=== PATIENT | female | born 1980 | race Caucasian/White ===

== ENCOUNTER 2023-06-08 21:33 | Emergency (ER) | payer BC, SELFPAY ==
[2023-06-08 21:36] VITALS: BP 134/99; PULSE 97; RESP 20; TEMP 37.3; O2SAT 99; BMI 39.9
--- NOTE | 2023-06-08 21:45 | ED_ITS ---
HPI - Allergic Reaction General Chief complaint: Allergic Reaction Stated complaint: rash Time Seen by Provider: 06/08/23 21:42 Source: patient and family Mode of arrival: walk-in Limitations: no limitations History of Present Illness HPI narrative: patient is a 43-year-old female presents to the emergency department with her for the evaluation of a rash and hives that developed over the body today. patient has taken Cipro, Flagyl, Bentyl and Ultram for the last six days for diverticulitis exacerbation. She has taken all of those medications in the past with no difficulty. She denies any other new soaps, detergents, foods. She has not had any lip swelling, tongue swelling or difficulty breathing. She reports hives over her trunk, abdomen and legs. She did not take any medication prior to arrival for symptoms. She states she is able to tolerate intramuscular and IV steroids she is not able to take oral steroids as it causes exacerbations of her diverticulitis. Related Data Previous Rx's Medication Instructions Recorded famotidine 20 mg tablet (Pepcid) 20 mg PO BID #10 tabs 06/08/23 hydroxyzine HCl 25 mg tablet 25 mg PO Q6H PRN itching #20 tabs 06/08/23 Allergies Allergy/AdvReac Type Severity Reaction Status Date / Time cefazolin [From [facility]] Allergy Intermediate Verified 06/08/23 21:36 Review of Systems ROS Constitutional Denies: fever or chills Ears, nose, mouth, and throat Denies: nasal congestion Cardiovascular Denies: chest pain Respiratory Denies: shortness of breath or cough Gastrointestinal Denies: nausea or vomiting Musculoskeletal Denies: back pain Integumentary/Breast Denies: rash Neurological Denies: headache Hematologic/Lymphatic Denies: easy bruising PFSH PFSH Social History Smoking status: Never smoker Exam Narrative Exam Narrative: Gen.: Awake, alert, in no distress Head: Normocephalic, atraumatic ENT: Moist mucous membranes, no swelling noted of the lips, tongue. Airway widely open and patent. No blistering or peeling of the lips or mucous membranes Respiratory: No respiratory distress, lungs clear bilaterally Cardio: Regular rate and rhythm Extremities: Moves extremities equally Psych: Normal mood and affect Neuro: No focal neuro deficit Skin: Warm, dry, intact; urticaria noted of the back, abdomen, legs. No petechiae or purpura noted. No mucous membrane involvement. No vesicles or crusting. Constitutional Vital Signs, click to edit/add: Last Vital Signs Temp 99.1 F 06/08/23 21:36 Pulse 97 H 06/08/23 21:36 Resp 20 06/08/23 21:36 BP 134/99 H 06/08/23 21:36 Pulse Ox 99 06/08/23 21:36 O2 Del Method Room Air 06/08/23 21:36 Course Vital Signs Vital signs: Vital Signs Temperature 99.1 F 06/08/23 21:36 Pulse Rate 97 H 06/08/23 21:36 Respiratory Rate 20 06/08/23 21:36 Blood Pressure 134/99 H 06/08/23 21:36 Pulse Oximetry 99 06/08/23 21:36 Oxygen Delivery Method Room Air 06/08/23 21:36 Temperature 99.1 F 06/08/23 21:36 Pulse Rate 97 H 06/08/23 21:36 Respiratory Rate 20 06/08/23 21:36 Blood Pressure 134/99 H 06/08/23 21:36 Pulse Oximetry 99 06/08/23 21:36 Oxygen Delivery Method Room Air 06/08/23 21:36 MDM - Allergic Reaction MDM Narrative Medical decision making narrative: patient treated with IV Benadryl, Pepcid, Solu-Medrol in the Emergency Room. Patient is unwilling to take oral steroids,she will be placed on oral Atarax and Pepcid for antihistamine coverage. She is done taking her antibiotics for acute diverticulitis exacerbation so we will not replace these antibiotics with a new prescription. She appears well-hydrated and nontoxic with stable vital signs. Follow-up with PCP and return to the Emergency Room if symptoms change or worsen. Medical Records Attestation: I reviewed the patient's medical records. Discharge Plan Discharge Chief Complaint: Allergic Reaction Clinical Impression: Urticaria, Allergic reaction Patient Disposition: Home, Self-Care Time of Disposition Decision: 21:44 Condition: Good Prescriptions / Home Meds: New famotidine [Pepcid] 20 mg tablet 20 mg PO BID Qty: 10 0RF hydroxyzine HCl 25 mg tablet 25 mg PO Q6H PRN (Reason: itching) Qty: 20 0RF Instructions: Urticaria (ED) Stand Alone Forms: Portal Instructions Referrals: JACEK KEBEDE [Primary Care Provider] - 1 week
[2023-06-08] MEDS: DIPHENHYDRAMINE HCL 50 MG/ML (1ML) VIAL 25 MG IV (21:50)
[2023-06-08] MEDS: FAMOTIDINE/PF 20 MG/2 ML VIAL IV (21:50)
[2023-06-08] MEDS: METHYLPREDNISOLONE SOD SUCC PF 125 MG/2 ML VIAL IVP (21:50)
[2023-06-08 22:33] VITALS: BP 132/98; PULSE 68; RESP 15; O2SAT 98
== END 2023-06-08 22:35 | disposition home or self-care (01) ==
PROVIDERS: Emergency Provider Emergency Medicine; PCP Family Medicine
DX: L50.0 Allergic urticaria (principal)
CPT/HCPCS: 96374; 96375; 99284; J2930

== ENCOUNTER 2023-06-13 10:33 | Emergency (ER) | payer BC, SELFPAY ==
[2023-06-13 10:38] VITALS: BP 133/87; PULSE 74; RESP 20; TEMP 37.3; O2SAT 97; BMI 40.3
--- NOTE | 2023-06-13 10:48 | ED.ABDPAIN1 ---
HPI - Abdominal Pain General Chief Complaint: Abdominal Pain Stated Complaint: LOWER ABDOMINAL PAIN Time Seen by Provider: 06/13/23 10:43 Source: patient Mode of arrival: Wheelchair Limitations: no limitations History of Present Illness HPI narrative: 43-year-old female presents for lower abdominal pain. She's had it since yesterday afternoon. She points across the low abdomen. No dysuria or hematuria or back pain. She's been nauseous but no vomiting constipation or diarrhea. She's had diverticulitis in the past and she had a hysterectomy and left oophorectomy. She still has her right ovary. The pain is severe and continuous. Related Data Previous Rx's Medication Instructions Recorded famotidine 20 mg tablet (Pepcid) 20 mg PO BID #10 tabs 06/08/23 hydroxyzine HCl 25 mg tablet 25 mg PO Q6H PRN itching #20 tabs 06/08/23 ciprofloxacin HCl 500 mg tablet 500 mg PO Q12H #20 tabs 06/13/23 (Cipro) hydrocodone 5 mg-acetaminophen 325 1 tab PO Q6H PRN pain 5 days #20 06/13/23 mg tablet tabs metronidazole 500 mg tablet 500 mg PO Q8H #30 tabs 06/13/23 ondansetron 4 mg disintegrating 4 mg PO Q6H PRN nausea and 06/13/23 tablet vomiting #20 tabs Allergies Allergy/AdvReac Type Severity Reaction Status Date / Time cefazolin [From [facility]] Allergy Intermediate Verified 06/08/23 21:36 prednisone Allergy Intermediate Unknown Verified 06/13/23 10:45 Review of Systems ROS Narrative A ten point review of systems is negative except as noted above. PFSH PFSH Social History Smoking status: Former smoker Exam Narrative Exam Narrative: Nurses note and vital signs reviewed and patient is not hypoxic. General: The patient appears uncomfortable and is tearful Skin: Warm, dry, no pallor noted. There is no rash noted. Head: Normocephalic, atraumatic Eye: Normal conjunctiva, no drainage Ears, Nose, Mouth, and Throat: oral mucosa is moist. Nares patent. Cardiovascular: Regular Rate and Rhythm Respiratory: Patient is in no distress, no accessory muscle use, lungs are clear to auscultation, no wheezing, rales or rhonchi Back: non-tender, no CVA tenderness bilaterally to percussion. GI: tender across her lower abdomen without distention. Musculoskeletal: The patient has no evidence of calf tenderness, no pitting edema, symmetrical pulses noted bilaterally Neurological: A&O, normal speech Psychiatric: Cooperative Constitutional Vital Signs, click to edit/add: Last Vital Signs Temp 99.2 F 06/13/23 10:38 Pulse 80 06/13/23 12:29 Resp 18 06/13/23 12:29 BP 138/68 06/13/23 12:29 Pulse Ox 96 06/13/23 12:29 O2 Del Method Room Air 06/13/23 10:38 Course Vital Signs Vital signs: Vital Signs Temperature 99.2 F 06/13/23 10:38 Pulse Rate 74 06/13/23 10:38 Respiratory Rate 20 06/13/23 10:38 Blood Pressure 133/87 06/13/23 10:38 Pulse Oximetry 97 06/13/23 10:38 Oxygen Delivery Method Room Air 06/13/23 10:38 Temperature 99.2 F 06/13/23 10:38 Pulse Rate 80 06/13/23 12:29 Respiratory Rate 18 06/13/23 12:29 Blood Pressure 138/68 06/13/23 12:29 Pulse Oximetry 96 06/13/23 12:29 Oxygen Delivery Method Room Air 06/13/23 10:38 MDM - Abdominal Pain MDM Narrative Medical decision making narrative: Acute uncomplicated diverticulitis is identified. She was given IV Cipro and Flagyl here and discharged home on Cipro, Flagyl, [place], and Zofran. Treatment diagnosis and follow-up were discussed with the patient. Differential Diagnosis Differential diagnosis: Likely abdominal pain, acute appendicitis, calculus of kidney, constipation, diverticulitis, endometriosis, gastroenteritis and small bowel obstruction Lab Data Attestation: I reviewed the patient's lab results. Labs: Lab Results 06/13/23 Range/Units 10:48 WBC 14.1 H (4.0-11.0) 10^3/uL RBC 4.54 (4.20-5.40) 10^6/uL Hgb 14.3 (12.0-16.0) g/dL Hct 40.0 (36.0-48.0) % MCV 88.1 (81.0-99.0) fL MCH 31.5 (26.7-34.0) pg MCHC 35.8 H (29.9-35.2) g/dL RDW 11.6 (11.0-15.0) % Plt Count 334 (150-450) 10^3/uL MPV 10.3 (9.5-13.5) fL Neut % (Auto) 77.9 H (43.0-75.0) % Lymph % (Auto) 13.4 L (20.5-60.0) % [place] % (Auto) 7.3 (1.7-12.0) % Eos % (Auto) 0.6 L (0.9-7.0) % Baso % (Auto) 0.4 (0.2-2.0) % Neut # (Auto) 11.0 H (1.4-6.5) 10^3/uL Lymph # (Auto) 1.9 (1.2-3.8) 10^3/uL [place] # (Auto) 1.0 H (0.3-0.8) 10^3/uL Eos # (Auto) 0.1 (0.0-0.7) 10^3/uL Baso # (Auto) 0.1 (0.0-0.1) 10^3/uL Abs Immat Gran (auto) 0.06 H (0.00-0.03) 10^3/uL Imm/Tot Granulo (auto) 0.4 (0.0-0.5) % Sodium 135 L (136-145) mmol/L Potassium 3.4 L (3.5-5.1) mmol/L Chloride 100 (98-107) mmol/L Carbon Dioxide 24.4 (21.0-32.0) mmol/L Anion Gap 14.0 BUN 7.0 (7.0-18.0) mg/dL Creatinine 0.74 (0.55-1.02) mg/dL Est GFR ( Amer) >60 (>=60) Est GFR (Non-Af Amer) >60 (>=60) BUN/Creatinine Ratio 9.5 Glucose 101 (74-106) mg/dL Calcium 8.7 (8.5-10.1) mg/dL Total Bilirubin 0.7 (0.2-1.0) mg/dL Direct Bilirubin 0.1 (0.0-0.2) mg/dL AST 8 L (15-37) U/L ALT 35 (14-59) U/L Alkaline Phosphatase 47 (46-116) U/L Total Protein 7.0 (6.4-8.2) g/dL Albumin 3.4 (3.4-5.0) g/dL Globulin 3.6 g/dL Albumin/Globulin Ratio 0.9 Amylase 28 (25-115) U/L Lipase 27.0 (16.0-77.0) U/L Urine Color Lt. yellow (YELLOW) Urine Clarity Clear (CLEAR) Urine pH 8.5 (5.0-9.0) Ur Specific [place] 1.015 (1.005-1.025) Urine Protein Negative (NEG/TRACE) mg/dL Urine Glucose (UA) Negative (NEGATIVE) mg/dL Urine Ketones Negative (NEGATIVE) mg/dL Urine Occult Blood Negative (NEGATIVE) Urine Nitrite Negative (NEGATIVE) Urine Bilirubin Negative (NEGATIVE) Urine Urobilinogen 0.2 (0.2-1.0) EU/dL Ur Leukocyte Esterase Negative (NEGATIVE) Urine RBC None seen (0-2) #/HPF Urine WBC None seen (NONE SEEN) #/HPF Ur Squamous Epith Cells None seen (NONE/RARE) #/LPF Urine Crystals None seen (None Seen) #/HPF Urine Bacteria None seen (NONE SEEN) #/HPF Urine Casts None seen (NONE SEEN) #/LPF Urine Mucus None seen (NONE SEEN) Imaging Data CT scan - abdomen: Radiologist's impression: Procedure: CT abdomen pelvis w con EXAM: CT abdomen pelvis w con HISTORY: low abd pain COMPARISON: None. TECHNIQUE: CT abdomen and pelvis 02/11/2020 Findings: ABDOMEN: There is fatty infiltration of the liver. Small layering stones within the gallbladder. Spleen, pancreas, and adrenal glands are unremarkable. No renal stones or collecting system dilatation. Left renal low-attenuation lesion, too small to characterize. The bilateral ureters are nondilated. Evaluation of the bowel is limited given the absence of oral contrast. There are colonic diverticula. There is wall thickening of the sigmoid colon with adjacent remaining of the fat in fluid consistent with acute diverticulitis. No evidence of abscess or microperforation. No bowel obstruction. The appendix is nondilated. The aorta is normal caliber. No enlarged abdominal lymph nodes or free abdominal fluid. Tiny fat-containing umbilicus hernia. Pelvis: Unremarkable bladder. No enlarged pelvic lymph nodes. No aggressive sclerotic or lytic osseous lesions. Mild degenerative spondylosis. IMPRESSION: 1. Acute sigmoid diverticulitis. 2. Other nonemergent findings, as described above. Electronically authenticated by: JB HERNÁNDEZ Date: 06/13/2023 11:49 Discharge Plan Discharge Chief Complaint: Abdominal Pain Clinical Impression: Acute diverticulitis Patient Disposition: Home, Self-Care Time of Disposition Decision: 12:52 Condition: Good Mode of Transportation: Private Vehicle Prescriptions / Home Meds: New ciprofloxacin HCl [Cipro] 500 mg tablet 500 mg PO Q12H Qty: 20 0RF metronidazole 500 mg tablet 500 mg PO Q8H Qty: 30 0RF hydrocodone-acetaminophen 5-325 mg tablet 1 tab PO Q6H PRN (Reason: pain) 5 Days Qty: 20 0RF ondansetron 4 mg tablet,disintegrating 4 mg PO Q6H PRN (Reason: nausea and vomiting) Qty: 20 0RF No Action famotidine [Pepcid] 20 mg tablet 20 mg PO BID Qty: 10 0RF Hold Instructions: per pt report hydroxyzine HCl 25 mg tablet 25 mg PO Q6H PRN (Reason: itching) Qty: 20 0RF Hold Instructions: per pt report Instructions: Diverticulitis (ED) Additional Instructions: F/U with Dr Kenyon Carrera Stand Alone Forms: Portal Instructions Referrals: JACEK KEBEDE [Primary Care Provider] - 1 week
[2023-06-13] MEDS: MORPHINE SULFATE 4 MG/ML VIAL IV ×2 (11:02→12:06)
[2023-06-13] MEDS: 0.9 % SODIUM CHLORIDE 1,000 ML 1000 ML IV (11:02)
[2023-06-13] MEDS: ONDANSETRON PF 4 MG/2 ML VIAL IV (11:02)
[2023-06-13 11:08] LABS: Basophils Absolute Auto 0.1 10^3/uL (0.0-0.1); Basophils Percent Auto 0.4 % (0.2-2.0); Eosinophils Absolute Auto 0.1 10^3/uL (0.0-0.7); Eosinophils Percent Auto 0.6 % (0.9-7.0); Hemoglobin 14.3 g/dL (12.0-16.0); Immature Granulocytes Abs Auto 0.06 10^3/uL (0.00-0.03); Immature Granulocytes Pct Auto 0.4 % (0.0-0.5); Lymphocytes Absolute Auto 1.9 10^3/uL (1.2-3.8); Lymphocytes Percent Auto 13.4 % (20.5-60.0); Mean Corpuscular HGB Conc 35.8 g/dL (29.9-35.2); Mean Corpuscular Hemoglobin 31.5 pg (26.7-34.0); Mean Corpuscular Volume 88.1 fL (81.0-99.0); Mean Platelet Volume 10.3 fL (9.5-13.5); Monocytes Percent Auto 7.3 % (1.7-12.0); Neutrophils Percent Auto 77.9 % (43.0-75.0); Platelet Count 334 10^3/uL (150-450); Red Blood Count 4.54 10^6/uL (4.20-5.40); Red Cell Distribution Width 11.6 % (11.0-15.0); White Blood Count 14.1 10^3/uL (4.0-11.0)
[2023-06-13 11:09] LABS: Bilirubin Urine NEGATIVE (NEGATIVE); Blood Urine NEGATIVE (NEGATIVE); Clarity Urine CLEAR (CLEAR); Color Urine LT. YELLOW (YELLOW); Glucose Urine UA NEGATIVE (NEGATIVE); Ketones Urine NEGATIVE (NEGATIVE); Leukocyte Esterase Urine NEGATIVE (NEGATIVE); Nitrite Urine NEGATIVE (NEGATIVE); Protein Urine NEGATIVE (NEG/TRACE); Specific Gravity Urine 1.015 (1.005-1.025); Urobilinogen Urine 0.2 EU/dL (0.2-1.0); pH Urine 8.5 (5.0-9.0)
[2023-06-13 11:20] LABS: Bacteria Urine NONE SEEN #/HPF (NONE SEEN); Cast Seen? NONE SEEN #/LPF (NONE SEEN); Crystals Seen? None Seen #/HPF (None Seen); Mucus Urine NONE SEEN (NONE SEEN); RBC Urine NONE SEEN #/HPF (0-2); Squamous Epithelial Cell Urine NONE SEEN #/LPF (NONE/RARE); WBC Urine NONE SEEN #/HPF (NONE SEEN)
--- NOTE | 2023-06-13 11:28 | CT_ITS ---
The [address] [address] Patient Name: CESAR LOPEZ MRN: [id number] date: 1980 Sex: F Assigned Patient Location: ER Current Patient Location: ER Accession/Order Number: [id number] Exam Date: 06/13/2023 11:18 Report Date: 06/13/2023 11:49 At the request of: LILIANA PATEL Procedure: CT abdomen pelvis w con EXAM: CT abdomen pelvis w con HISTORY: low abd pain COMPARISON: None. TECHNIQUE: CT abdomen and pelvis 02/11/2020 Findings: ABDOMEN: There is fatty infiltration of the liver. Small layering stones within the gallbladder. Spleen, pancreas, and adrenal glands are unremarkable. No renal stones or collecting system dilatation. Left renal low-attenuation lesion, too small to characterize. The bilateral ureters are nondilated. Evaluation of the bowel is limited given the absence of oral contrast. There are colonic diverticula. There is wall thickening of the sigmoid colon with adjacent remaining of the fat in fluid consistent with acute diverticulitis. No evidence of abscess or microperforation. No bowel obstruction. The appendix is nondilated. The aorta is normal caliber. No enlarged abdominal lymph nodes or free abdominal fluid. Tiny fat-containing umbilicus hernia. Pelvis: Unremarkable bladder. No enlarged pelvic lymph nodes. No aggressive sclerotic or lytic osseous lesions. Mild degenerative spondylosis. CT/CT abdomen pelvis w con IMPRESSION: 1. Acute sigmoid diverticulitis. 2. Other nonemergent findings, as described above. Electronically authenticated by: JB HERNÁNDEZ Date: 06/13/2023 11:49
[2023-06-13 11:34] VITALS: BP 130/72; PULSE 67; RESP 18; O2SAT 98
[2023-06-13 12:05] LABS: Alanine Aminotransferase 35 U/L (14-59); Albumin Globulin Ratio 0.9; Albumin Level 3.4 g/dL (3.4-5.0); Alkaline Phosphatase 47 U/L (46-116); Amylase 28 U/L (25-115); Aspartate Amino Transferase 8 U/L (15-37); BUN Creatinine Ratio 9.5; Bilirubin Direct 0.1 mg/dL (0.0-0.2); Bilirubin Total 0.7 mg/dL (0.2-1.0); Calcium 8.7 mg/dL (8.5-10.1); Carbon Dioxide 24.4 mmol/L (21.0-32.0); Chloride 100 mmol/L (98-107); Estimated GFR (African America >60 (>=60); Estimated GFR (Non-African Ame >60 (>=60); Globulin 3.6 g/dL; Glucose 101 mg/dL (74-106); Potassium 3.4 mmol/L (3.5-5.1); Sodium 135 mmol/L (136-145)
[2023-06-13] MEDS: METRONIDAZOLE/SODIUM CHLORIDE 500 MG/100 ML PREMIX 100 MG IV (12:06)
[2023-06-13] MEDS: CIPROFLOXACIN IN 5 % DEXTROSE 400 MG/200 ML PIGGYBACK IV (12:14)
[2023-06-13 12:29] VITALS: BP 138/68; PULSE 80; RESP 18; O2SAT 96
[2023-06-13 13:26] VITALS: BP 128/68; PULSE 82; RESP 18; O2SAT 96
== END 2023-06-13 13:28 | disposition home or self-care (01) ==
PROVIDERS: Emergency Provider Emergency Medicine; PCP Family Medicine
DX: K57.32 Diverticulitis of large intestine without perforation or abscess without bleeding (principal); Z90.710 Acquired absence of both cervix and uterus; Z90.721 Acquired absence of ovaries, unilateral; Z79.899 Other long term (current) drug therapy; Z87.891 Personal history of nicotine dependence
CPT/HCPCS: 36415; 74177; 80048; 80076; 81001; 82150; 83690; 85025; 96365; 96375; 96376; 99285; Q9967

== ENCOUNTER 2024-01-16 14:37 | Emergency (ER) | payer BC, SELFPAY ==
[2024-01-16 14:40] VITALS: BP 159/100; PULSE 104; O2SAT 98; BMI 40.0
--- NOTE | 2024-01-16 14:45 | CT_ITS ---
[address] [address] Patient Name: CESAR LOPEZ MRN: [id number] date: 1980 Sex: F Assigned Patient Location: ER Current Patient Location: ER Accession/Order Number: [id number] Exam Date: 01/16/2024 16:11 Report Date: 01/16/2024 16:58 At the request of: DIONISIO CANNON Procedure: CT abdomen pelvis w con EXAM: CT abdomen pelvis w con HISTORY: Abdominal pain COMPARISON: 06/13/2023 TECHNIQUE: Axial CT imaging was performed through the abdomen and pelvis with intravenous contrast. Multiplanar reformats were performed. Dose reduction techniques were achieved by using automated exposure control and/or adjustment of mA and/or kV according to patient size and/or use of iterative reconstruction technique. FINDINGS: Lung bases: Lung bases are clear. No pleural effusion. GI upper: Unremarkable. Liver: Hepatomegaly , measuring 21 cm with steatosis. Normal contour. Gallbladder: Gallbladder sludge/stone. Biliary system: No intra or extrahepatic biliary ductal dilatation. Spleen: Normal size. Pancreas: Unremarkable. Adrenal glands: Normal adrenal glands. Kidneys/ureters: Normal contours. No hydronephrosis. No nephrolithiasis or ureterolithiasis. Vessels: No aneurysm. Lymph Nodes: No lymphadenopathy. Small bowel: No wall thickening or dilatation. Colon: No wall thickening or dilatation. Colonic diverticulosis without definite evidence of acute diverticulitis.. Appendix: No findings of appendicitis. Peritoneal cavity: No free fluid or pneumoperitoneum. Persistent pelvic fat stranding, may represent scarring from prior surgery. Lower : There is a 3.8 cm right ovarian cyst. Hysterectomy. Bones: No acute bony abnormality. Soft tissues: No acute finding. Additional findings: None. CT/CT abdomen pelvis w con IMPRESSION: Hepatomegaly and hepatic steatosis. Gallbladder sludge/stone. A 3.8 cm right ovarian cyst. Electronically authenticated by: TONJA COKER Date: 01/16/2024 16:58
--- OUTSIDE RECORDS SUMMARY | 2024-01-16 15:08 | XMS_ITS | CCD ---
Author Organization [facility] ion [facility] Care Team Providers Care Manager Stone Name Role Phone David Ayala Unavailable Unavailable Weiricha, David Obandoied Unavailable Unavailable Mike Lara Unavailable Unavailable Yandy, Gladys Hawthorne Unavailable Unavailable Weiricha, Daivd Simons Unavailable Unavailable Gladys Kebede Unavailable Unavailable Jamie, David Simons Unavailable Unavailable Gladys Kebede Unavailable Unavailable YANDY, DR READ Primary Care Unavailable NELA, DR ESCOBAR Consulting Unavailable NELA, DR ESCOBAR Attending Unavailable NELA, DR ESCOBAR Admitting Unavailable GEORGIA, DR JARED Tomas Consulting Unavailmelly e YANDY, DR READ Primary Care Unavailable GEORGIA, DR JARED Tomas Attending Unavailabl e GEORGIA, DR JARED Tomas Admitting Unavailabl e Strawser, Janice Consulting Unavailable Gladys Kebede MD Unavailable Gladys Kebede MD Primary Care Provider LAW LINK Attending Unavailab LAW Yuan Attending Unavailab LAW Yuan Referring Unavailab SEJAL León Attending Unavailable SEJAL DONAHUE Referring Unavailable Allergies Allergy Classification Reported Allergen(s) Allergy Type Date of Onset Reaction(s) Facility (1 source) ceFAZolin Drug Allergy 4 [facility] (1 source) Corticosteroids Drug allergy (disorder) [facility] (2 sources) ceFAZolin Drug Allergy 4 Unknown [facility] (2 sources) Fish Oils Drug Allergy 4 Unknown [facility] (2 sources) Ibuprofen Drug Allergy 4 Unknown [facility] (2 sources) Other Propensity to adverse reactions 4 [facility] Medications Current Medications Medication Drug Class(es) Dates Sig (Normalized) Sig (Original) albuterol 0.83 mg/ml inhalation solution (4 sources) beta2-Adrenergic Agonist Start: 09-01-2023 End: 08-31-2024 albuterol (2.5 MG/3ML) 0.083% nebulizer solution Indications: Mild intermittent asthma with exacerbation (CMS/HCC) Take 3 mL (2.5 mg) by nebulization every 6 (six) hours if needed for wheezing 75 mL 1 09/01/2023 08/31/2024 Active Start: 08-22-2023 End: 08-21-2024 take 2 puff(s) by inhalation every four hours for wheezing albuterol HFA (Ventolin HFA) 90 mcg/act inhaler Indications: Mild intermittent asthma with exacerbation (CMS/HCC) Inhale 2 puffs every 4 (four) hours if needed for wheezing 18 g 1 08/22/2023 08/21/2024 Active ascorbic acid 250 mg oral tablet (2 sources) Vitamin C Ascorbic Acid (v itamin C) 250 MG tablet Take 1,500 mg by mouth in the morning. 0 Active cholecalciferol 0.025 mg oral tablet (2 sources) Vitamin D take 1 tablet by mouth in the morning cholecalciferol (Vitamin D-3) 25 MCG (1000 UT) tablet Take 1,000 Units by mouth in the morning. 0 Active ondansetron 4 mg disintegrating oral tablet (2 sources) Serotonin-3 Receptor Antagonist Start: 06-13-20 23 ondansetron ODT (Zofran-ODT) 4 MG disintegrating tablet DISSOLVE 1 TABLET ON THE TONGUE EVERY 6 HOURS NEEDED FOR NAUSEA AND VOMITING 0 06/13/2023 Active polyethylene glycol 3350 50663 mg powder for oral solution (2 sources) Osmotic Laxative polyethylene gl ycol, PEG, 3350 (Glycolax) 17 GM/SCOOP powder Take by mouth 0 Active Problems Active Problems Problem Classification Problem Date Documented Date Episodic/Chronic Anxiety disorders (2 sources) Anxiety; Translations: [Anxiety disorder, unspecified] Onset: 08-22-2023 08-22-2023 Chronic Asthma (2 sources) Mild intermittent asthma; Translations: [Mild intermittent asthma, uncomplicated] Onset: 08-22-2023 08-22-2023 Chronic Diverticulosis and diverticulitis (4 sources) Diverticulitis; Translations: [Diverticulitis of intestine, part unspecified, without perforation or abscess without bleeding] Onset: 08-22-2023 08-22-2023 Chronic E Codes: Struck by; against (1 source) Striking against or struck by other objects, initial encounter; Translations: [STRIKING AGNST/STRUCK OTH OBJ INIT] Onset: 10-25-2021 Episodic Esophageal disorders (2 sources) Laryngopharyngeal reflux; Translations: [Gastro-esophageal reflux disease without esophagitis] Onset: 08-22-2023 08-22-2023 Chronic Headache; including migraine (2 sources) Episodic tension-type headache; Translations: [Episodic tension-type headache, not intractable] Onset: 08-22-2023 08-22-2023 Chronic Joint disorders and dislocations; trauma-related (2 sources) Derangement of medial meniscus due to injury of knee; Translations: [Derangement of unspecified medial meniscus due to old tear or injury, left knee] Onset: 08-22-2023 08-22-2023 Chronic Other connective tissue disease (3 sources) Pain in right hand; Translations: [PAIN IN RIGHT HAND] Onset: 10-23-2021 Episodic Other connective tissue disease (2 sources) Peroneal tendinitis of left lower limb; Translations: [Peroneal tendinitis, left leg] 09-20-2023 Episodic Other connective tissue disease (2 sources) Pain in both feet; Translations: [Pain in right foot] 09-20-2023 Episodic Other lower respiratory disease (2 sources) Chronic cough; Translations: [Chronic cough] Onset: 08-22-2023 08-22-2023 Episodic Other nervous system disorders (4 sources) Common peroneal neuropathy; Translations: [Lesion of sciatic nerve, right lower limb] 09-20-2023 Chronic Other nervous system disorders (2 sources) Neuropathy; Translations: [Polyneuropathy, unspecified] 09-20-2023 Chronic Other nervous system disorders (2 sources) Chronic pain; Translations: [Other chronic pain] Onset: 08-22-2023 08-22-2023 Chronic Other non-traumatic joint disorders (4 sources) Sinus tarsi syndrome; Translations: [Pain in left ankle and joints of left foot] 09-20-2023 Episodic Other non-traumatic joint disorders (2 sources) Stiffness of left ankle; Translations: [Stiffness of left ankle, not elsewhere classified] Onset: 08-22-2023 08-22-2023 Episodic Other upper respiratory disease (2 sources) Chronic laryngitis; Translations: [Chronic laryngitis] Onset: 08-22-2023 08-22-2023 Chronic Other upper respiratory disease (2 sources) Seasonal allergic rhinitis; Translations: [Other seasonal allergic rhinitis] Onset: 08-22-2023 08-22-2023 Chronic Other upper respiratory infections (2 sources) Chronic sinusitis, unspecified; Translations: [Chronic rhinitis] Onset: 08-22-2023 08-22-2023 Chronic Sprains and strains (1 source) Unspecified sprain of right thumb, initial encounter; Translations: [UNSPECIFIED SPRAIN RT THUMB INITIAL] Onset: 10-25-2021 Episodic Unclassified (1 source) Dysphonia / R49.0(ICD-10) Onset: 06-09-2017 Past or Other Problems Problem Classification Problem Date Documented Da te Episodic/Chronic E Codes: Natural/environment (1 source) Bitten or stung by nonvenomous insect and other nonvenomous arthropods, initial encounter; Translations: [BITTEN NONVENOM INSCT OTH ARTH INIT] Onset: 05-31-2021 Episodic Screening and history of mental health and substance abuse codes (1 source) Personal history of nicotine dependence; Translations: [PERSONAL HISTORY OF NICOTINE DEPEND] Onset: 05-31-2021 Episodic Skin and subcutaneous tissue infections (4 sources) Cellulitis of abdominal wall; Translations: [CELLULITIS OF ABDOMINAL WALL] Onset: 2021 Episodic Superficial injury; contusion (1 source) Insect bite (nonvenomous) of abdominal wall, initial encounter; Translations: [INSECT BITE ABDOMINAL WALL INITIAL] Onset: 05-31-2021 Episodic Results Test Name Value Interpretation Reference Range Facil ity XR CHEST 2 VIEWSon 4 XR CHEST 2 VIEWS EXAMINATION: XR CHES T 2 VIEWS HISTORY: SOB, wheezing TECHNIQUE: Frontal and lateral views of the chest. COMPARISON: None available at time of interpretation FINDINGS: Cardiomediastinal silhouette is within normal limits. No pneumothorax, pleural effusion, or consolidation. No acute osseous abnormality. IMPRESSION: No radiographic evidence of acute intrathoracic process. ELECTRONICALLY SIGNED BY: Rob Barcenas, DO Normal Not Available SCREENING MAMMOGRAM W/TANO, BILATERAL*on 02-03-2022 SCREENING MAMMOGRAM W/TANO, BILATERAL* COMPARISON: Baseline examination TECHNIQUE: 2D and 3D Tomosynthesis of the right and left breasts was performed. FINDINGS: Breast composition demonstrates almost entirely fat. No suspicious microcalcifications, asymmetry, architectural distortion, or associated features are present. IMPRESSION: BIRADS 1: Negative mammogram Board Certified Radiologist. Accredited by the ACR and FDA. MAMMOGRAPHY IS VERY IMPORTANT TO YOUR HEALTH. THE CURRENT [employer] [employer] GUIDELINES RECOMMENDS ANNUAL MAMMOGRAPHY BEGINNING AT AGE 39 THIS FACILITY USES A REMINDER SYSTEM TO ENSURE ALL PATIENTS RECEIVE REMINDER NOTIFICATIONS AT THE APPROPRIATE TIME BASED ON THE RECOMMENDATIONS OF THIS EXAM. Report reported and signed by Da Jeff on 02/03/2022 0914 Normal [facility] MRI Ankle w/o Righton 2021 MRI Ankle w/o Right HISTORY: Peroneal tendinitis. Lateral ankle/foot pain. COMPARISON: None available TECHNIQUE: Multiplanar multisequence MRI of the right ankle was performed without contrast. FINDINGS: The Achilles tendon is intact. The plantar fascia is intact and without thickening or nodularity. Tibialis posterior, flexor digitorum longus, and flexor digitorum longus tendons are intact. No space-occupying lesion within the tarsal tunnel. Split tear of peroneus brevis tendon as it courses along the inferior margin of the lateral malleolus for a length of approximately 2.5 cm. Peroneus longus tendon is intact. Extensor tendons are intact. The anterior and posterior tibiofibular ligaments are intact. The anterior and posterior talofibular ligaments and calcaneofibular ligament are intact. Superficial and deep fibers of the deltoid ligament are intact. Spring ligament is intact. Sinus tarsi fat is preserved. No well defined or measurable articular cartilage defect of the tibial plafond, talar dome, or subtalar joint. No ankle joint effusion. No evidence of fracture or stress reaction of the visualized bones. Hyperintense T2 signal is identified along the dorsal aspect of the fifth proximal phalanx but is incompletely evaluated on this examination. IMPRESSION: Split tear of peroneus brevis tendon as it courses along the inferior margin of the lateral malleolus for a length of approximately 2.5 cm. Hyperintense T2 signal is identified along the dorsal aspect of the fifth proximal phalanx and is nonspecific. MRI of the forefoot is recommended to further evaluate. Report reported and signed by Rob Barcenas on 11/17/2021 0734 Normal [facility] XR HAND RT MIN 3Von 10-24-19 22 XR HAND RT MIN 3V XR HAND RT MIN 3V: HISTORY: Trauma to hand. Hit hand in door.. COMPARISON: None available. TECHNIQUE: 3 radiographic view(s) obtained. FINDINGS: BONES/JOINT SPACES: There is no acute fracture or dislocation. The joint spaces are well-maintained. SOFT TISSUES: The soft tissues are unremarkable. IMPRESSION: Unremarkable plain film examination without acute fracture or dislocation. Electronically authenticated by: JANICE LOPES Date: 2021-10-23 17:06 Normal [facility] Encounters Encounter Date Encounter Type Care Provider Facility Start: 10-27-2023 End: 10-27-2023 ambulatory SEJAL DONAHUE Not Available Start: 09-18-2023 End: 09-18-2023 ambulatory SEJAL DONAHUE Not Available Start: 09-18-2023 End: 09-18-2023 Office outpatient visit 25 minutes Sejal Donahue DPM Work Phone: [facility] Comment on above: Common peroneal neur opathy of right lower extremity (Primary Dx); Common peroneal neuropathy of left lower extremity; Neuropathy; Sinus tarsitis of left foot; Sinus tarsitis of right foot; Peroneal tendinitis of left lower extremity; Pain in both feet Start: 09-14-2023 End: 09-15-2023 ambulatory LAW A HACLARKEEN[place]G Not Available Start: 08-22-2023 End: 08-22-2023 ambulatory LAW A HACKEN[place]G Not Available Start: 10-23-2021 End: 10-23-[address] JARED HO Facility:[facility] Start: 2021 End: [address] GLADYS KEBEDE Facility:[facility] Start: 07-19-[address] [facility] Start: 06-21-2017 Ambulatory David Ayala Facility:[facility] Start: 06-09-2017 Ambulatory David Ayala Facility:[facility] Procedures Date Procedure Procedure Detail Performing Clinician Start: 08-22-2023 H/O: hysterectomy History of hystere ctomy Sejal Donahue DPM Work Phone: Start: 02-03-2022 Mammography Sejal Godfrey DPM Work Phone: Plan of Treatment Date Care Activity Detail Author Start: 02-11-2024 Influenza vaccination Influenza Vacc ine (#1) [facility] Comment on above: Postponed from 04/14 (Patient Refused) Start: 09-20-2023 End: 09-20-2024 EMG 2 Extremities EMG 2 Extremities Neurology Routine 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 Expected: 09/20/2023 (Approximate), Expires: 09/20/2024 [facility] Work Phone: Comment on above: Expected: 09/20/2023 (Approximate), Expires: 09/20/2024 Start: 02-03-2023 Screening for malign ant neoplasm of breast Mammogram [facility] Immunizations Immunization Date Immunization Notes Care Provider Ross bolanos 08-29-2016 tetanus toxoid, redu dangelo diphtheria toxoid, and acellular pertussis vaccine, adsorbed Sejal Donahue DPM Work Phone: [facility] Payers Date Payer Category Payer Unknown BCBS BCBS xxxxxx [id number] 2023-Present [phone] [address] [place] [address] [id number] 2023 Unknown [id number] 2023 Unknown [id number] 2017 Unknown [id number] 1979 Unknown [id number] 1979 Unknown [id number] 1979 Unknown [id number] 1979 Unknown [id number] 1979 Unknown [id number] 1979 Unknown [id number] 1979 Unknown [id number] 1959 Unknown [id number] Social History Date Type Detail Facility Start: 08-22-2023 Tobacco smoking status NHIS Never sm oked tobacco [facility] Start: 08-22-2023 Tobacco use and exposure Smoke less tobacco non-user [facility] Start: 09-18-2023 Alcohol intake Ex-drinker (finding) [facility] Start: 08-22-2023 End: 09-14-2023 [facility] Start: 08-22-2023 End: 09-14-2023 Alcohol Use Disorder Identification Test - Consumption [AUDIT-C] [facility] How often to you hav e a drink containing alcohol? Monthly or less [facility] How many standard dr inks containing alcohol do you have on a typical day? 1 or 2 [facility] How often do you hav e 6 or more drinks on 1 occasion? Never [facility] Start: 09-13-2023 Alcohol Comment Caffeine intak e : 2-3 cups per day coffee [facility] Start: 1980 Sex Assigned At Not on file [facility] Start: 10-26-2022 Gender identity Identifies as female gender (finding) [facility] History of Present illness Narrative 09-18-2023 Sejal Donahue DPM - 09/18/2023 4:00 PM Remedios Donahue DPM - 09/18/2023 4:00 PM EST Note Date & Type Note Facility 09-18-2023 History of Presen t illness Narrative Duplicate HPI: Cesar Lopez presents today for evaluation of bilateral ankle cramping pain. Patient states that she has had pain in the ankle for months. She describes the pain as cramping, muscle spasms which has increased with time. Patient relates a positive history of trauma to the area. 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 She has a cramping sensation to the ankles and foot, on the right side it goes up into the knee and thigh. She has tried bracing, rest, icing, TENS and massage for treatment. No other complaints Exam: General Examination: GENERAL APPEARANCE: awake, aware of surroundings, in no acute distress Vascular: DORSALIS PEDIS PULSE: 2/4, bilaterally POSTERIOR TIBIAL PULSE: 2/4, bilaterally TEMPERATURE GRADIENT: warm to cool EDEMA: to the lateral ankle bilateral CAPILLARY FILLING TIME(sec): capillary fill inact bilateral digits less than 3 secs Neurologic: NEUROLOGIC: light touch is intact to the plantar foot Dermatologic: SKIN FINDINGS: scar to the lateral ankle left HYPERKERATOSIS: none NAIL PATHOLOGY: digits 1-5 bilateral are intact SKIN PATHOLOGY: texture, turgor, hair growth, within normal limits Orthopedic: FOOT MORPHOLOGY: neutral JOINT RANGE OF MOTION: Without pain or crepitus to the subtalar joint and first MPJ. Patient does have pain with ankle joint range of motion slightly with dorsiflexion, eversion and inversion DEFORMITIES: none PAIN ELICITED WITH PALPATION OF: Pain with palpation starting along the proximal lateral aspect of the fibular head right with exacerbation of her symptoms with palpation along the common peroneal nerve to the lateral right knee. Patient does have some nerve sensations with palpation along the lateral left knee but symptoms are definitely worse on the right side. Pain with palpation to the Peroneal tendons along the lateral aspect of the ankle and course of the sural nerve. She also has pain with palpation to the dorsal lateral cutaneous nerve along the right foot. Pain to the sinus tarsi bilateral PAIN ELICITED WITH ROM: Eversion of the right foot and ankle. Patient does not have pain with range of motion to the left ankle but does relate stiffness. 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 She is having pain on consistent with neuropathy along the common peroneal nerve to the bilateral lower extremity. We did discuss the etiology, symptoms and treatment options available for this condition. I would like to order an EMG to determine the extent of nerve changes and also for diagnostic purposes. Referral to neurology was placed and patient will be contacted for further scheduling. We did discuss the potential utilization of nerve modulating medication such as gabapentin, Lyrica. Patient is hesitant to start these medications if she has had a multitude of side effects due to her diverticulitis So we will hold off until we have the results of the EMG. Discussed with the patient a corticosteroid injection. R/B/P/A/C with the patient who consents to proceed. The area was prepped with alcohol. Attention was directed to the bilateral subtalar joint where the patient was noted to have pain. Injection was performed with a total of 4ccs: 3ccs of 0.25% Sensorcaine plain was injection into the joint. At this point in time, retrograde pressure applied to the syringe and no fluid return was noted. This syringe was removed and then 1cc of Kenalog 40 was injected into the joint. Patient tolerated the injection well. Patient instructed on home care. Patient can continue with use of the ASO braces immobilization to help with her foot drop symptoms. We will follow up once the EMG has been completed and to discuss further treatment options. 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- Primary Common peroneal neuropathy of left lower extremity Neuropathy Mononeuritis of unspecified site Sinus tarsitis of left foot Sinus tarsitis of right foot Peroneal tendinitis of left lower extremity Pain in both feet documented in this encounter [facility] Summary Purpose Family History No Family History Records FoundNo Family History Records FoundNo Family History Records FoundNo Family History Records Found Advance Directives No Advanced Directives Records FoundNo Advanced Directives Records FoundNo Advanced Directives Records FoundNo Advanced Directives Records Found Reason for Referral Specialty Diagnoses / Procedures Referred By Contayla t Referred To Contact Diagnoses 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 Procedures EMG 2 Extremities Sejal Donahue, DPM [address] [place] [address] Referral ID Status Reason Start Date Expiration Date V isits Requested Visits Authorized [id number] Incomplete 09/20/2023 03/18/2024 1 1 Additional Source Comments INFORMATION SOURCE (unrecogn ized section and content) DATE CREATED AUTHOR 02/06/2018 [facility] DATE CREATED AUTHOR AUTHOR'S ORGANIZ ATION 10/25/2021 [facility] DATE CREATED AUTHOR AUTHOR'S ORGANIZ ATION 02/04/2022 [facility] Specialist DATE CREATED AUTHOR AUTHOR'S ORGANIZ ATION 10/29/2023 [facility] Specialists EPIC Reason for Visit (unrecogniz ed section and content) Reason Comments Ankle Pain Care Teams (unrecognized sec tion and content) Manager Stone Relationship Specialty Start Date End Date Gladys Kebede MD [address] [place] [address] PCP - [facility] 06/14/22 Gladys Kebede MD [address] [place] [address] PCP - General Family Medicine 12/20/22 FOR RECORDS PERTAINING TO PATIENTS WHO ARE OR HAVE BEEN ENROLLED IN A CHEMICAL DEPENDENCY/SUBSTANCEABUSE PROGRAM, SOME INFORMATION MAY BE OMITTED. This clinical summary was aggregated from multiple sources. Caution should be exercised in using it in the provision of clinical care. This summary normalizes information from multiple sources, and as a consequence, information in this document may materially change the coding, format and clinical context of patient data. In addition, data may be omitted in some cases. CLINICAL DECISIONS SHOULD BE BASED ON THE PRIMARY CLINICAL RECORDS. [employer] [facility]. provides no warranty or guarantee of the accuracy or completeness of information in this document.
--- NOTE | 2024-01-16 15:22 | ED_ITS ---
HPI - Abdominal Pain General Chief Complaint: Abdominal Pain Stated Complaint: ABDOMINAL PAIN Time Seen by Provider: 01/16/24 14:38 Source: patient Mode of arrival: Wheelchair History of Present Illness HPI narrative: Patient is a 43-year-old female who presents to the emergency department for evaluation of suprapubic and right-sided abdominal pain that began 12 hours ago. She states that she has felt nauseous, she has not had any fevers, vomiting or diarrhea. She has had no blood in her stool. She has a history of diverticulitis and states this feels the same. She was last treated for diverticulitis last fall. No medications taken prior to arrival today. She has had a previous hysterectomy. Related Data Previous Rx's ?Medication ?Instructions ?Recorded famotidine 20 mg tablet (Pepcid) 20 mg PO BID #10 tabs 06/08/23 hydroxyzine HCl 25 mg tablet 25 mg PO Q6H PRN itching #20 tabs 06/08/23 ciprofloxacin HCl 500 mg tablet 500 mg PO Q12H #20 tabs 06/13/23 (Cipro) hydrocodone 5 mg-acetaminophen 325 1 tab PO Q6H PRN pain 5 days #20 06/13/23 mg tablet tabs metronidazole 500 mg tablet 500 mg PO Q8H #30 tabs 06/13/23 ondansetron 4 mg disintegrating 4 mg PO Q6H PRN nausea and 06/13/23 tablet vomiting #20 tabs hydrocodone 5 mg-acetaminophen 325 1 tab PO Q6H PRN pain 2 days #8 01/16/24 mg tablet tabs hyoscyamine sulfate 0.125 mg 0.125 mg PO Q6H PRN abdominal pain 01/16/24 tablet (Levsin) #12 tabs ondansetron 4 mg disintegrating 4 mg PO Q6H PRN nausea and 01/16/24 tablet vomiting #12 tabs Allergies Allergy/AdvReac Type Severity Reaction Status Date / Time cefazolin [From [facility]] Allergy Intermediate Verified 06/08/23 21:36 prednisone Allergy Intermediate Unknown Verified 06/13/23 10:45 Review of Systems ROS Constitutional Denies: fever or chills Ears, nose, mouth, and throat Denies: throat pain or nasal congestion Cardiovascular Denies: chest pain Respiratory Denies: shortness of breath or cough Gastrointestinal Reports: abdominal pain and nausea; Denies: vomiting or diarrhea Genitourinary Denies: painful urination Musculoskeletal Denies: back pain or neck pain Integumentary/Breast Denies: rash Neurological Denies: headache Hematologic/Lymphatic Denies: easy bruising or easy bleeding PFSH [facility] Social History Smoking status: Former smoker Exam Narrative Exam Narrative: Gen.: Awake, alert, in no distress Head: Normocephalic, atraumatic ENT: Moist mucous membranes Respiratory: No respiratory distress, lungs clear bilaterally Cardio: Regular rate and rhythm Gastrointestinal: Abdomen is soft, Obese, no rigidity or firmness. Diffusely tender to palpation of the right upper quadrant, right lower quadrant and suprapubic abdomen with voluntary guarding. Extremities: Moves extremities equally Psych: Normal mood and affect Neuro: No focal neuro deficit Skin: Warm, dry, intact Constitutional Vital Signs, click to edit/add: Last Vital Signs Pulse 90 01/16/24 17:27 Resp 16 01/16/24 17:27 BP 129/88 01/16/24 17:27 Pulse Ox 98 01/16/24 17:27 O2 Del Method Room Air 01/16/24 14:40 Course Vital Signs Vital signs: Vital Signs Pulse Rate 104 H 01/16/24 14:40 Respiratory Rate 20 01/16/24 14:40 Blood Pressure 159/100 H 01/16/24 14:40 Pulse Oximetry 98 01/16/24 14:40 Oxygen Delivery Method Room Air 01/16/24 14:40 Pulse Rate 90 01/16/24 17:27 Respiratory Rate 16 01/16/24 17:27 Blood Pressure 129/88 01/16/24 17:27 Pulse Oximetry 98 01/16/24 17:27 Oxygen Delivery Method Room Air 01/16/24 14:40 MDM - Abdominal Pain MDM Narrative Medical decision making narrative: Patient treated with pain medication, nausea medication, IV fluids. Lab studies Show mild leukocytosis but bilirubin, LFTs, lipase and urine specimen are within normal limits. CT shows gallbladder sludge and a 3 cm right ovarian cyst, I noted constipation on my evaluation of the CT. Appendix is normal, no evidence of colitis or diverticulitis. Patient with no indication for antibiotics at this time. She is discharged home with short course of analgesics, Levsin, Zofran to follow-up with her PCP. Return to the ER if symptoms change or worsen Medical Records Attestation: I reviewed the patient's medical records. Lab Data Attestation: I reviewed the patient's lab results. Labs: Lab Results 01/16/24 01/16/24 Range/Units 15:18 16:36 WBC 15.7 H (4.0-11.0) 10^3/uL RBC 4.51 (4.20-5.40) 10^6/uL Hgb 13.9 (12.0-16.0) g/dL Hct 41.6 (36.0-48.0) % MCV 92.2 (81.0-99.0) fL MCH 30.8 (26.7-34.0) pg MCHC 33.4 (29.9-35.2) g/dL RDW 11.9 (11.0-15.0) % Plt Count 330 (150-450) 10^3/uL MPV 9.9 (9.5-13.5) fL Neut % (Auto) 80.5 H (43.0-75.0) % Lymph % (Auto) 11.7 L (20.5-60.0) % [place] % (Auto) 6.8 (1.7-12.0) % Eos % (Auto) 0.3 L (0.9-7.0) % Baso % (Auto) 0.4 (0.2-2.0) % Neut # (Auto) 12.6 H (1.4-6.5) 10^3/uL Lymph # (Auto) 1.8 (1.2-3.8) 10^3/uL [place] # (Auto) 1.1 H (0.3-0.8) 10^3/uL Eos # (Auto) 0.1 (0.0-0.7) 10^3/uL Baso # (Auto) 0.1 (0.0-0.1) 10^3/uL Abs Immat Gran (auto) 0.04 H (0.00-0.03) 10^3/uL Imm/Tot Granulo (auto) 0.3 (0.0-0.5) % Sodium 141 (136-145) mmol/L Potassium 3.6 (3.5-5.1) mmol/L Chloride 103 (98-107) mmol/L Carbon Dioxide 22.5 (21.0-32.0) mmol/L Anion Gap 19.1 BUN 9.0 (7.0-18.0) mg/dL Creatinine 0.77 (0.55-1.02) mg/dL Est GFR ( Amer) >60 (>=60) Est GFR (Non-Af Amer) >60 (>=60) BUN/Creatinine Ratio 11.7 Glucose 108 H (74-106) mg/dL Lactate 1.8 (0.4-2.0) mmol/L Calcium 9.0 (8.5-10.1) mg/dL Total Bilirubin 0.8 (0.2-1.0) mg/dL AST 21 (15-37) U/L ALT 38 (14-59) U/L Alkaline Phosphatase 57 (46-116) U/L Total Protein 7.6 (6.4-8.2) g/dL Albumin 3.6 (3.4-5.0) g/dL Globulin 4.0 g/dL Albumin/Globulin Ratio 0.9 Lipase 27.0 (16.0-77.0) U/L Urine Color Yellow (YELLOW) Urine Clarity Clear (CLEAR) Urine pH 6.5 (5.0-9.0) Ur Specific [place] 1.020 (1.005-1.025) Urine Protein Negative (NEG/TRACE) mg/dL Urine Glucose (UA) Negative (NEGATIVE) mg/dL Urine Ketones Negative (NEGATIVE) mg/dL Urine Occult Blood Negative (NEGATIVE) Urine Nitrite Negative (NEGATIVE) Urine Bilirubin Negative (NEGATIVE) Urine Urobilinogen 0.2 (0.2-1.0) EU/dL Ur Leukocyte Esterase Negative (NEGATIVE) Imaging Data CT scan - abdomen: Attestation: I have reviewed the pertinent imaging results. Radiologist's impression: ITS Impressions Abdomen/Pelvis CT 01/16/24 14:45 IMPRESSION: Hepatomegaly and hepatic steatosis. Gallbladder sludge/stone. A 3.8 cm right ovarian cyst. Electronically authenticated by: TONJA COKER Date: 01/16/2024 16:58 Discharge Plan Discharge Stand Alone Forms: Portal Instructions Chief Complaint: Abdominal Pain Clinical Impression: Abdominal pain Patient Disposition: Home, Self-Care Time of Disposition Decision: 17:25 Condition: Good Prescriptions / Home Meds: New hydrocodone-acetaminophen 5-325 mg tablet 1 tab PO Q6H PRN (Reason: pain) 2 Days Qty: 8 0RF Rx Instructions: DX R10.9 hyoscyamine sulfate [Levsin] 0.125 mg tablet 0.125 mg PO Q6H PRN (Reason: abdominal pain) Qty: 12 0RF ondansetron 4 mg tablet,disintegrating 4 mg PO Q6H PRN (Reason: nausea and vomiting) Qty: 12 0RF No Action famotidine [Pepcid] 20 mg tablet 20 mg PO BID Qty: 10 0RF Hold Instructions: per pt report hydroxyzine HCl 25 mg tablet 25 mg PO Q6H PRN (Reason: itching) Qty: 20 0RF Hold Instructions: per pt report ciprofloxacin HCl [Cipro] 500 mg tablet 500 mg PO Q12H Qty: 20 0RF metronidazole 500 mg tablet 500 mg PO Q8H Qty: 30 0RF hydrocodone-acetaminophen 5-325 mg tablet 1 tab PO Q6H PRN (Reason: pain) 5 Days Qty: 20 0RF ondansetron 4 mg tablet,disintegrating 4 mg PO Q6H PRN (Reason: nausea and vomiting) Qty: 20 0RF Print Language: Vietnamese Instructions: Acute Abdominal Pain (ED) Referrals: JACEK KEBEDE [Primary Care Provider] - 1 week
[2024-01-16] MEDS: HYDROMORPHONE HCL 1 MG/ML CARTRIDGE IVP (15:28)
[2024-01-16] MEDS: ONDANSETRON PF 4 MG/2 ML VIAL IV (15:28)
[2024-01-16 15:34] LABS: Basophils Absolute Auto 0.1 10^3/uL (0.0-0.1); Basophils Percent Auto 0.4 % (0.2-2.0); Eosinophils Absolute Auto 0.1 10^3/uL (0.0-0.7); Eosinophils Percent Auto 0.3 % (0.9-7.0); Hematocrit 41.6 % (36.0-48.0); Hemoglobin 13.9 g/dL (12.0-16.0); Immature Granulocytes Abs Auto 0.04 10^3/uL (0.00-0.03); Immature Granulocytes Pct Auto 0.3 % (0.0-0.5); Lymphocytes Absolute Auto 1.8 10^3/uL (1.2-3.8); Lymphocytes Percent Auto 11.7 % (20.5-60.0); Mean Corpuscular HGB Conc 33.4 g/dL (29.9-35.2); Mean Corpuscular Hemoglobin 30.8 pg (26.7-34.0); Mean Corpuscular Volume 92.2 fL (81.0-99.0); Mean Platelet Volume 9.9 fL (9.5-13.5); Monocytes Absolute Auto 1.1 10^3/uL (0.3-0.8); Monocytes Percent Auto 6.8 % (1.7-12.0); Neutrophils Absolute Auto 12.6 10^3/uL (1.4-6.5); Neutrophils Percent Auto 80.5 % (43.0-75.0); Platelet Count 330 10^3/uL (150-450); Red Blood Count 4.51 10^6/uL (4.20-5.40); Red Cell Distribution Width 11.9 % (11.0-15.0); White Blood Count 15.7 10^3/uL (4.0-11.0)
[2024-01-16 16:07] LABS: Alanine Aminotransferase 38 U/L (14-59); Albumin Globulin Ratio 0.9; Albumin Level 3.6 g/dL (3.4-5.0); Alkaline Phosphatase 57 U/L (46-116); Anion Gap 19.1; Aspartate Amino Transferase 21 U/L (15-37); BUN Creatinine Ratio 11.7; Bilirubin Total 0.8 mg/dL (0.2-1.0); Carbon Dioxide 22.5 mmol/L (21.0-32.0); Chloride 103 mmol/L (98-107); Estimated GFR (African America >60 (>=60); Estimated GFR (Non-African Ame >60 (>=60); Glucose 108 mg/dL (74-106); Potassium 3.6 mmol/L (3.5-5.1); Sodium 141 mmol/L (136-145); Total Protein 7.6 g/dL (6.4-8.2)
[2024-01-16 16:15] LABS: Lactate/Lactic Acid 1.8 mmol/L (0.4-2.0)
[2024-01-16] MEDS: 0.9 % SODIUM CHLORIDE 1,000 ML 1000 ML IV (16:37)
[2024-01-16 17:18] LABS: Bilirubin Urine NEGATIVE (NEGATIVE); Blood Urine NEGATIVE (NEGATIVE); Clarity Urine CLEAR (CLEAR); Color Urine YELLOW (YELLOW); Glucose Urine UA NEGATIVE (NEGATIVE); Ketones Urine NEGATIVE (NEGATIVE); Leukocyte Esterase Urine NEGATIVE (NEGATIVE); Nitrite Urine NEGATIVE (NEGATIVE); Protein Urine NEGATIVE (NEG/TRACE); Urine Microscopic Indicated NO; Urobilinogen Urine 0.2 EU/dL (0.2-1.0); pH Urine 6.5 (5.0-9.0)
[2024-01-16 17:27] VITALS: BP 129/88; PULSE 90; O2SAT 98
== END 2024-01-16 17:36 | disposition home or self-care (01) ==
PROVIDERS: Physician Assistant; Emergency Provider Emergency Medicine; PCP Family Medicine
DX: R10.9 Unspecified abdominal pain (principal); Z90.710 Acquired absence of both cervix and uterus; Z87.891 Personal history of nicotine dependence
CPT/HCPCS: 36415; 74177; 80053; 81003; 83605; 83690; 85025; 96374; 96375; 99285; J1170; Q9967

== ENCOUNTER 2024-01-22 15:52 | Observation (INO) | payer BC, SELFPAY ==
--- OUTSIDE RECORDS SUMMARY | 2024-01-22 16:02 | XMS_ITS | CCD ---
Author Organization [facility] ion [facility] Care Team Providers Care Web User Experience Strategist Name Role Phone David Ayala Unavailable Unavailable Weiricha, David Obandoied Unavailable Unavailable Mike Lara Unavailable Unavailable Yandy, Gladys Hawthorne Unavailable Unavailable Weiricha, David Simons Unavailable Unavailable Gladys Kebede Unavailable [...] (1 source) ceFAZolin Drug Allergy 4 [facility] (1 source) Corticosteroids Drug allergy (disorder) [facility] (2 sources) ceFAZolin Drug Allergy 4 Unknown [facility] (2 sources) Fish Oils Drug Allergy 4 Unknown [facility] (2 sources) Ibuprofen Drug Allergy 4 Unknown [facility] (2 sources) Other Propensity to adverse reactions 4 [facility] Medications Current Medications Medication Drug [...] VOMITING 0 06/13/2023 Active polyethylene glycol 3350 [id number] mg powder for oral solution (2 sources) [...] VERY IMPORTANT TO YOUR HEALTH. THE CURRENT [employer] GUIDELINES RECOMMENDS ANNUAL MAMMOGRAPHY BEGINNING AT AGE 40 THIS FACILITY USES A REMINDER SYSTEM TO ENSURE ALL PATIENTS RECEIVE REMINDER NOTIFICATIONS AT THE APPROPRIATE TIME BASED ON THE RECOMMENDATIONS OF THIS EXAM. Report reported and signed by Da Jeff on 02/03/2022 0914 Normal [facility] MRI Ankle w/o Righton 2021 MRI Ankle [...] by Rob Barcenas on 11/17/2021 0734 Normal [facility] Clinical Cytogenetics Director XR HAND RT MIN 3Von 10-24-19 22 [...] by: JANICE LOPES Date: 2021-10-23 17:06 Normal [facility] Encounters Encounter Date Encounter Type Care Provider Facility Start: 10-27-2023 End: 10-27-2023 ambulatory SEJAL DONAHUE Not Available Start: 09-18-2023 End: 09-18-2023 ambulatory SEJAL DONAHUE Not Available Start: 09-18-2023 End: 09-18-2023 Office outpatient visit 25 minutes Sejal Donahue DPM Work Phone: [facility] Comment on above: Common peroneal neur [...] GLADYS KEBEDE Facility:[facility] Start: 07-19-2017 Ambulatory David Fraustohu [facility] Facility:[facility] Start: 06-21-2017 Ambulatory David Ayala Facility:[facility] Start: 06-09-2017 Ambulatory David Ayala Facility:[facility] Procedures Date Procedure Procedure Detail Performing Clinician Start: 08-22-2023 H/O: hysterectomy History of hystere ctomy Sejal Donahue DPM Work Phone: Start: 02-03-2022 Mammography Sejal Godfrey DPM Work Phone: Plan of Treatment Date Care Activity Detail Author Start: 02-11-2024 Influenza vaccination Influenza Vacc ine (#1) [facility] Comment on above: Postponed from 04/14 (Patient Refused) Start: 09-20-2023 End: 09-20-2024 EMG 2 Extremities EMG 2 Extremities Neurology Routine 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 Expected: 09/20/2023 (Approximate), Expires: 09/20/2024 [facility] Work Phone: Comment on above: Expected: 09/20/2023 (Approximate), Expires: 09/20/2024 Start: 02-03-2023 Screening for malign ant neoplasm of breast Mammogram [facility] Immunizations Immunization Date Immunization Notes Care Provider Ross bolanos 08-29-2016 tetanus toxoid, redu dangelo diphtheria toxoid, and acellular pertussis vaccine, adsorbed Sejal Donahue DPM Work Phone: [facility] Payers Date Payer Category Payer Unknown BCBS BCBS xxxxxx [id number] 2023-Present [phone] [address] [place] [address] [id number] 2023 Unknown [id number] 2023 Unknown [id number] 2017 Unknown [id number] 1979 Unknown [id number] 1979 Unknown [id number] 1979 Unknown [id number] 1979 Unknown [id number] 1979 Unknown [id number] 1979 Unknown [id number] 1979 Unknown [id number] 1959 Unknown [id number] Social History Date Type Detail Facility Start: [...] further treatment options. documented in this encounter [facility] Evaluation note Note Date & Type [...] DPM [address] [place] [address] Referral ID Status Reason Start Date Expiration Date V isits Requested Visits Authorized [id number] Incomplete 09/20/2023 03/18/2024 1 1 Additional Source Comments INFORMATION SOURCE (unrecogn ized section and content) DATE CREATED AUTHOR 02/06/2018 [facility] DATE CREATED AUTHOR AUTHOR'S ORGANIZ ATION 10/25/2021 [facility] pital DATE CREATED AUTHOR AUTHOR'S ORGANIZ ATION 02/04/2022 [facility] dical Specialist DATE CREATED AUTHOR AUTHOR'S ORGANIZ ATION 10/29/2023 [facility] dical Specialists EPIC Reason for Visit (unrecogniz ed section and content) Reason Comments Ankle Pain Care Teams (unrecognized sec tion and content) Web User Experience Strategist Relationship Specialty Start Date End Date Gladys Kebede MD [address] [place] [address] PCP - [facility] 06/14/22 Gladys Kebede MD [address] [place] [address] PCP - General Family Medicine 12/20/22 FOR [...] BE BASED ON THE PRIMARY CLINICAL RECORDS. [facility] [facility]. provides no warranty or guarantee of the accuracy or completeness of information in this document.
[2024-01-22 16:03] VITALS: BP 156/100; PULSE 95; TEMP 36.1; BMI 39.9
--- NOTE | 2024-01-22 17:09 | CT_ITS ---
The [address] [address] Patient Name: CESAR LOPEZ MRN: [id number] date: 1980 Sex: F Assigned Patient Location: ER Current Patient Location: ER Accession/Order Number: [id number] Exam Date: 01/22/2024 18:02 Report Date: 01/22/2024 19:43 At the request of: JONI HIGH Procedure: CT abdomen pelvis w con CT ABDOMEN AND PELVIS WITH CONTRAST: INDICATION: Lower abd pain. COMPARISON: 01/16/2024. TECHNIQUE:Multiple thin section transaxial slices were acquired through the abdomen and pelvis with intravenous contrast. Coronal and sagittal reconstructed images were reviewed. Oral contrastWas not administered. FINDINGS: LOWER CHEST: Dependent changes are present in the lung bases. LIVER: The liver is enlarged measuring 21.8 cm in craniocaudad extent. There is severe diffuse hepatic steatosis with focal fatty sparing adjacent to the gallbladder fossa. GALLBLADDER AND BILIARY SYSTEM: No obvious ductal dilation. There is cholelithiasis. SPLEEN: The spleen is unremarkable. PANCREAS: The pancreas is unremarkable. ADRENAL GLANDS: The adrenal glands are unremarkable. KIDNEYS AND URETERS: There is no hydronephrosis of the kidneys.No obstructing urologic calcifications are present. VASCULATURE: Vascularity is unremarkable. PERITONEUM/RETROPERITONEUM: There is mild fluid and edema traversing along the left paracolic gutter. There is no free air. LYMPH NODES: No suspicious lymphadenopathy. GASTROINTESTINAL TRACT: There is no bowel obstruction.There is severe diffuse chronic colonic diverticulosis of the colon. There are acute inflammatory changes involving the rectosigmoid colon and the descending colon. This extends to the level of the splenic flexure. The extent of inflammation within the pelvis has improved since the previous examination. The inflammation of the descending colon is new.Findings are concerning for colitis given more diffuse distribution of inflammation. The appendix is visualized and is not inflamed. BLADDER: The urinary bladder is unremarkable. REPRODUCTIVE SYSTEM: There is a dominant follicle in the right ovary measuring 2.2 cm. BODY WALL: There is a tiny fat-containing umbilical hernia. BONES: Multilevel degenerative disc disease is present in the lumbar spine most severe at the L5-S1 level. CT/CT abdomen pelvis w con IMPRESSION: 1. Acute inflammatory changes are present throughout the descending colon in the rectosigmoid colon in a distribution concerning for colitis. 2. Hepatomegaly and diffuse hepatic steatosis. Electronically authenticated by: DAYRON LOPES Date: 01/22/2024 19:43
--- NOTE | 2024-01-22 17:10 | ED.ABDPAIN1 ---
Documented by User: Dianneinocencia Hutsonon 01/22/24 21:31 HPI - Abdominal Pain General Chief Complaint: Abdominal Pain Stated Complaint: abdominal pain Time Seen by Provider: 01/22/24 17:01 Source: patient Mode of arrival: walk-in Limitations: no limitations History of Present Illness HPI narrative: 43 year old female presents to the ED for LLQ pain, N/V/D. Onset was 01/20/24. Sx became worse today. She saw her pcp today for follow up after an ED visit last week for abd pain. She has hx diverticulitis. Denies fever, chills, urinary sx. Denies chance of . She is accompanied by family. Related Data Previous Rx's ?Medication ?Instructions ?Recorded ciprofloxacin HCl 500 mg tablet 500 mg PO Q12H 10 days #20 tabs 01/22/24 (Cipro) metronidazole 500 mg tablet 500 mg PO TID 10 days #30 tabs 01/22/24 ondansetron HCl 4 mg tablet 4 mg PO Q8H PRN nausea and 01/23/24 vomiting 4 days #10 tabs oxycodone-acetaminophen 5 mg-325 1 tab PO Q6H PRN pain #14 tabs 01/23/24 mg tablet Allergies Allergy/AdvReac Type Severity Reaction Status Date / Time cefazolin [From Anc] Allergy Intermediate Verified 01/22/24 16:08 prednisone Allergy Intermediate Unknown Verified 01/22/24 16:08 Review of Systems ROS Constitutional Denies: fever or chills Ears, nose, mouth, and throat Denies: throat pain or neck pain Cardiovascular Denies: chest pain Respiratory Denies: shortness of breath or cough Gastrointestinal Reports: abdominal pain, nausea, vomiting and diarrhea Genitourinary Denies: painful urination, urinary frequency, urinary urgency or blood in urine Musculoskeletal Denies: back pain or neck pain Integumentary/Breast Denies: rash Neurological Denies: headache PFSH PFSH Medical History (Updated 01/23/24 @ 15:07 by Aster Lerma NP) Diverticulosis ?K57.90 - Diverticulosis of intestine, part unspecified, without perforation or abscess without bleeding (ICD-10) Obesity (BMI 30-39.9) ?E66.9 - Obesity, unspecified (ICD-10) Surgical History (Updated 01/23/24 @ 00:23 by Radha Michel) History of ankle surgery ?Z98.890 - Other specified postprocedural states (ICD-10) H/O: hysterectomy ?Z90.710 - Acquired absence of both cervix and uterus (ICD-10) Family History (Updated 01/22/24 @ 21:31 by Radha Michel) Father Family history of CHF (congestive heart failure) Family history of COPD (chronic obstructive pulmonary disease) Family history of cancer Family history of hypertension Family history of myocardial infarction Family history of stroke Grandfather Family history of diabetes mellitus Grandmother Family history of diabetes mellitus Social History (Updated 01/22/24 @ 21:32 by Radha Michel) Within the past year, how often did you have a drink containing alcohol: never Score interpretation: A score less than 3 is consistent with normal alcohol consumption. 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 Highest level of school completed/degree received: Bachelor's degree Are you now , , , , never or living with a partner: In a typical week, how many times do you talk on the telephone with family, friends, or neighbors: 3 or more times per week How often do you get together with friends or relatives: 3 or more times per week How often do you attend hinduism or nondenominational services: 4 or more times per year Do you belong to any clubs or organizations such as hinduism groups unions, fraternal or athletic groups, or school groups: yes Total score: 4 Score interpretation: A score of greater than or equal to 2 indicates the lowest level of social isolation. Little interest or pleasure in doing things: not at all Feeling down, depressed, or hopeless: not at all Feel stressed/tense/nervous/anxious/difficulty sleeping: not at all Do you think of yourself as: straight/heterosexual Gender Identity: female Exam Constitutional Vital Signs, click to edit/add: Last Vital Signs Temp 98.5 F 01/23/24 09:14 Pulse 83 01/23/24 09:14 Resp 18 01/23/24 09:14 BP 154/82 H 01/23/24 09:14 Pulse Ox 94 L 01/23/24 09:14 O2 Del Method Room Air 01/23/24 09:14 Common normals: no apparent distress and oriented x3 General appearance: cooperative Eye Common normals: conjunctivae normal and no scleral icterus Neck & C-Spine Common normals: supple Chest Chest: symmetrical chest wall rise Respiratory Common normals: normal respiratory effort Effort & inspection: able to speak in complete sentences and symmetric chest movement Cardio Common normals: regular rate and regular rhythm GI Common normals: Normal to inspection, nondistended, normoactive bowel sounds present Palpation: soft and tender Details: LLQ and RLQ Neuro Common normals: oriented x3 and moves all extremities Sensorium/orientation: awake Course Vital Signs Vital signs: Vital Signs Temperature 97 F L 01/22/24 16:03 Pulse Rate 95 H 01/22/24 16:03 Respiratory Rate 18 01/22/24 16:03 Blood Pressure 156/100 H 01/22/24 16:03 Temperature 98.5 F 01/23/24 09:14 Pulse Rate 83 01/23/24 09:14 Respiratory Rate 18 01/23/24 09:14 Blood Pressure 154/82 H 01/23/24 09:14 Pulse Oximetry 94 L 01/23/24 09:14 Oxygen Delivery Method Room Air 01/23/24 09:14 MDM - Abdominal Pain MDM Narrative Medical decision making narrative: WBC count was 12.4. CT scan showed acute inflammatory changes are present throughout the descending colon in the rectosigmoid colon in a distribution concerning for colitis. The patient initially reported she wanted to go home; she later reported she was in too much discomfort to be discharged. She was given medication for her discomfort here in the ED. She was started on IV antibiotics. I spoke with Agnes COTTO who accepted the patient for admission under Dr. Mccarthy. Differential Diagnosis Differential diagnosis: Likely abdominal pain, diverticulitis, gastroenteritis and small bowel obstruction Medical Records Attestation: I reviewed the patient's medical records. Lab Data Attestation: I reviewed the patient's lab results. Labs: Lab Results 01/22/24 01/22/24 Range/Units 17:05 19:40 WBC 12.4 H (4.0-11.0) 10^3/uL RBC 4.39 (4.20-5.40) 10^6/uL Hgb 13.5 (12.0-16.0) g/dL Hct 40.1 (36.0-48.0) % MCV 91.3 (81.0-99.0) fL MCH 30.8 (26.7-34.0) pg MCHC 33.7 (29.9-35.2) g/dL RDW 11.4 (11.0-15.0) % Plt Count 326 (150-450) 10^3/uL MPV 10.1 (9.5-13.5) fL Neut % (Auto) 82.0 H (43.0-75.0) % Lymph % (Auto) 11.2 L (20.5-60.0) % Jerome % (Auto) 5.9 (1.7-12.0) % Eos % (Auto) 0.2 L (0.9-7.0) % Baso % (Auto) 0.3 (0.2-2.0) % Neut # (Auto) 10.1 H (1.4-6.5) 10^3/uL Lymph # (Auto) 1.4 (1.2-3.8) 10^3/uL Jerome # (Auto) 0.7 (0.3-0.8) 10^3/uL Eos # (Auto) 0.0 (0.0-0.7) 10^3/uL Baso # (Auto) 0.0 (0.0-0.1) 10^3/uL Abs Immat Gran (auto) 0.05 H (0.00-0.03) 10^3/uL Imm/Tot Granulo (auto) 0.4 (0.0-0.5) % Sodium 139 (136-145) mmol/L Potassium 3.7 (3.5-5.1) mmol/L Chloride 101 (98-107) mmol/L Carbon Dioxide 25.3 (21.0-32.0) mmol/L Anion Gap 16.4 BUN 10.0 (7.0-18.0) mg/dL Creatinine 0.83 (0.55-1.02) mg/dL Est GFR ( Amer) >60 (>=60) Est GFR (Non-Af Amer) >60 (>=60) BUN/Creatinine Ratio 12.0 Glucose 96 (74-106) mg/dL Calcium 9.3 (8.5-10.1) mg/dL Total Bilirubin 0.6 (0.2-1.0) mg/dL AST 18 (15-37) U/L ALT 33 (14-59) U/L Alkaline Phosphatase 67 (46-116) U/L Total Protein 7.8 (6.4-8.2) g/dL Albumin 3.4 (3.4-5.0) g/dL Globulin 4.4 g/dL Albumin/Globulin Ratio 0.8 Lipase 21.0 (16.0-77.0) U/L Serum HCG, Qual Negative (NEGATIVE) Urine Color Yellow (YELLOW) Urine Clarity Clear (CLEAR) Urine pH 6.0 (5.0-9.0) Ur Specific [place] 1.020 (1.005-1.025) Urine Protein Negative (NEG/TRACE) mg/dL Urine Glucose (UA) Negative (NEGATIVE) mg/dL Urine Ketones 40 A (NEGATIVE) mg/dL Urine Occult Blood Negative (NEGATIVE) Urine Nitrite Negative (NEGATIVE) Urine Bilirubin Small A (NEGATIVE) Urine Urobilinogen 0.2 (0.2-1.0) EU/dL Ur Leukocyte Esterase Negative (NEGATIVE) Imaging Data CT scan - abdomen: Attestation: I have reviewed the pertinent imaging results. Radiologist's impression: ITS Impressions Abdomen/Pelvis CT 01/22/24 17:09 IMPRESSION: 1. Acute inflammatory changes are present throughout the descending colon in the rectosigmoid colon in a distribution concerning for colitis. 2. Hepatomegaly and diffuse hepatic steatosis. Electronically authenticated by: DAYRON LOPES Date: 01/22/2024 19:43 Discharge Plan Discharge Chief Complaint: Abdominal Pain Clinical Impression: Colitis, Abdominal pain Patient Disposition: Admitted as Observation Time of Disposition Decision: 20:40 Condition: Good Discharge Date/Time: 01/22/24 21:02 Documented by User: Oren Bradley MD 01/23/24 19:36 HPI - Abdominal Pain General Chief Complaint: Abdominal Pain Stated Complaint: abdominal pain Time Seen by Provider: 01/22/24 17:01 Related Data Previous Rx's ?Medication ?Instructions ?Recorded ciprofloxacin HCl 500 mg tablet 500 mg PO Q12H 10 days #20 tabs 01/22/24 (Cipro) metronidazole 500 mg tablet 500 mg PO TID 10 days #30 tabs 01/22/24 ondansetron HCl 4 mg tablet 4 mg PO Q8H PRN nausea and 01/23/24 vomiting 4 days #10 tabs oxycodone-acetaminophen 5 mg-325 1 tab PO Q6H PRN pain #14 tabs 01/23/24 mg tablet Allergies Allergy/AdvReac Type Severity Reaction Status Date / Time cefazolin [From [facility]] Allergy Intermediate Verified 01/22/24 16:08 prednisone Allergy Intermediate Unknown Verified 01/22/24 16:08 PFS PFS Medical History (Updated 01/23/24 @ 15:07 by Aster Lerma NP) Diverticulosis ?K57.90 - Diverticulosis of intestine, part unspecified, without perforation or abscess without bleeding (ICD-10) Obesity (BMI 30-39.9) ?E66.9 - Obesity, unspecified (ICD-10) Surgical History (Updated 01/23/24 @ 00:23 by Radha Michel) History of ankle surgery ?Z98.890 - Other specified postprocedural states (ICD-10) H/O: hysterectomy ?Z90.710 - Acquired absence of both cervix and uterus (ICD-10) Family History (Updated 01/22/24 @ 21:31 by Radha Michel) Father Family history of CHF (congestive heart failure) Family history of COPD (chronic obstructive pulmonary disease) Family history of cancer Family history of hypertension Family history of myocardial infarction Family history of stroke Grandfather Family history of diabetes mellitus Grandmother Family history of diabetes mellitus Social History (Updated 01/22/24 @ 21:32 by Radha Michel) Within the past year, how often did you have a drink containing alcohol: never Score interpretation: A score less than 3 is consistent with normal alcohol consumption. Smoking status: Former smoker Non-prescribed substance use: denies use Previous occupational history: owns own business Highest level of school completed/degree received: Bachelor's degree Are you now , , , , never or living with a partner: In a typical week, how many times do you talk on the telephone with family, friends, or neighbors: 3 or more times per week How often do you get together with friends or relatives: 3 or more times per week How often do you attend hinduism or nondenominational services: 4 or more times per year Do you belong to any clubs or organizations such as hinduism groups unions, fraternal or athletic groups, or school groups: yes Total score: 4 Score interpretation: A score of greater than or equal to 2 indicates the lowest level of social isolation. Little interest or pleasure in doing things: not at all Feeling down, depressed, or hopeless: not at all Feel stressed/tense/nervous/anxious/difficulty sleeping: not at all Do you think of yourself as: straight/heterosexual Gender Identity: female Exam Constitutional Vital Signs, click to edit/add: Last Vital Signs Temp 98.5 F 01/23/24 09:14 Pulse 83 01/23/24 09:14 Resp 18 01/23/24 09:14 BP 154/82 H 01/23/24 09:14 Pulse Ox 94 L 01/23/24 09:14 O2 Del Method Room Air 01/23/24 09:14 Course Vital Signs Vital signs: Vital Signs Temperature 97 F L 01/22/24 16:03 Pulse Rate 95 H 01/22/24 16:03 Respiratory Rate 18 01/22/24 16:03 Blood Pressure 156/100 H 01/22/24 16:03 Temperature 98.5 F 01/23/24 09:14 Pulse Rate 83 01/23/24 09:14 Respiratory Rate 18 01/23/24 09:14 Blood Pressure 154/82 H 01/23/24 09:14 Pulse Oximetry 94 L 01/23/24 09:14 Oxygen Delivery Method Room Air 01/23/24 09:14 MDM - Abdominal Pain MDM Narrative Medical decision making narrative: WBC count was 12.4. CT scan showed acute inflammatory changes are present throughout the descending colon in the rectosigmoid colon in a distribution concerning for colitis. The patient initially reported she wanted to go home; she later reported she was in too much discomfort to be discharged. She was given medication for her discomfort here in the ED. She was started on IV antibiotics. I spoke with Agnes COTTO who accepted the patient for admission under Dr. Mccarthy. I, Dr Bradley, have reviewed the above progress note and course of action in the ER; agree with the above. I have gone over history and physical, and discussed disposition and treatment plan with the patient. Lab Data Labs: Lab Results 01/22/24 01/22/24 Range/Units 17:05 19:40 WBC 12.4 H (4.0-11.0) 10^3/uL RBC 4.39 (4.20-5.40) 10^6/uL Hgb 13.5 (12.0-16.0) g/dL Hct 40.1 (36.0-48.0) % MCV 91.3 (81.0-99.0) fL MCH 30.8 (26.7-34.0) pg MCHC 33.7 (29.9-35.2) g/dL RDW 11.4 (11.0-15.0) % Plt Count 326 (150-450) 10^3/uL MPV 10.1 (9.5-13.5) fL Neut % (Auto) 82.0 H (43.0-75.0) % Lymph % (Auto) 11.2 L (20.5-60.0) % Jerome % (Auto) 5.9 (1.7-12.0) % Eos % (Auto) 0.2 L (0.9-7.0) % Baso % (Auto) 0.3 (0.2-2.0) % Neut # (Auto) 10.1 H (1.4-6.5) 10^3/uL Lymph # (Auto) 1.4 (1.2-3.8) 10^3/uL Jerome # (Auto) 0.7 (0.3-0.8) 10^3/uL Eos # (Auto) 0.0 (0.0-0.7) 10^3/uL Baso # (Auto) 0.0 (0.0-0.1) 10^3/uL Abs Immat Gran (auto) 0.05 H (0.00-0.03) 10^3/uL Imm/Tot Granulo (auto) 0.4 (0.0-0.5) % Sodium 139 (136-145) mmol/L Potassium 3.7 (3.5-5.1) mmol/L Chloride 101 (98-107) mmol/L Carbon Dioxide 25.3 (21.0-32.0) mmol/L Anion Gap 16.4 BUN 10.0 (7.0-18.0) mg/dL Creatinine 0.83 (0.55-1.02) mg/dL Est GFR ( Amer) >60 (>=60) Est GFR (Non-Af Amer) >60 (>=60) BUN/Creatinine Ratio 12.0 Glucose 96 (74-106) mg/dL Calcium 9.3 (8.5-10.1) mg/dL Total Bilirubin 0.6 (0.2-1.0) mg/dL AST 18 (15-37) U/L ALT 33 (14-59) U/L Alkaline Phosphatase 67 (46-116) U/L Total Protein 7.8 (6.4-8.2) g/dL Albumin 3.4 (3.4-5.0) g/dL Globulin 4.4 g/dL Albumin/Globulin Ratio 0.8 Lipase 21.0 (16.0-77.0) U/L Serum HCG, Qual Negative (NEGATIVE) Urine Color Yellow (YELLOW) Urine Clarity Clear (CLEAR) Urine pH 6.0 (5.0-9.0) Ur Specific [place] 1.020 (1.005-1.025) Urine Protein Negative (NEG/TRACE) mg/dL Urine Glucose (UA) Negative (NEGATIVE) mg/dL Urine Ketones 40 A (NEGATIVE) mg/dL Urine Occult Blood Negative (NEGATIVE) Urine Nitrite Negative (NEGATIVE) Urine Bilirubin Small A (NEGATIVE) Urine Urobilinogen 0.2 (0.2-1.0) EU/dL Ur Leukocyte Esterase Negative (NEGATIVE) Imaging Data CT scan - abdomen: Radiologist's impression: ITS Impressions Abdomen/Pelvis CT 01/22/24 17:09
[2024-01-22] MEDS: HYDROMORPHONE HCL 0.5 MG/0.5 ML SYRINGE IV ×2 (17:19→19:48)
[2024-01-22] MEDS: 0.9 % SODIUM CHLORIDE 1,000 ML 999 ML IV (17:19)
[2024-01-22] MEDS: ONDANSETRON PF 4 MG/2 ML VIAL IV (17:19)
[2024-01-22 17:39] LABS: Basophils Percent Auto 0.3 % (0.2-2.0); Eosinophils Percent Auto 0.2 % (0.9-7.0); Hematocrit 40.1 % (36.0-48.0); Hemoglobin 13.5 g/dL (12.0-16.0); Immature Granulocytes Abs Auto 0.05 10^3/uL (0.00-0.03); Immature Granulocytes Pct Auto 0.4 % (0.0-0.5); Lymphocytes Absolute Auto 1.4 10^3/uL (1.2-3.8); Lymphocytes Percent Auto 11.2 % (20.5-60.0); Mean Corpuscular HGB Conc 33.7 g/dL (29.9-35.2); Mean Corpuscular Hemoglobin 30.8 pg (26.7-34.0); Mean Corpuscular Volume 91.3 fL (81.0-99.0); Mean Platelet Volume 10.1 fL (9.5-13.5); Monocytes Absolute Auto 0.7 10^3/uL (0.3-0.8); Monocytes Percent Auto 5.9 % (1.7-12.0); Neutrophils Absolute Auto 10.1 10^3/uL (1.4-6.5); Platelet Count 326 10^3/uL (150-450); Red Blood Count 4.39 10^6/uL (4.20-5.40); Red Cell Distribution Width 11.4 % (11.0-15.0); White Blood Count 12.4 10^3/uL (4.0-11.0)
[2024-01-22 17:56] LABS: Alanine Aminotransferase 33 U/L (14-59); Albumin Globulin Ratio 0.8; Albumin Level 3.4 g/dL (3.4-5.0); Alkaline Phosphatase 67 U/L (46-116); Anion Gap 16.4; Aspartate Amino Transferase 18 U/L (15-37); Bilirubin Total 0.6 mg/dL (0.2-1.0); Calcium 9.3 mg/dL (8.5-10.1); Carbon Dioxide 25.3 mmol/L (21.0-32.0); Chloride 101 mmol/L (98-107); Estimated GFR (African America >60 (>=60); Estimated GFR (Non-African Ame >60 (>=60); Globulin 4.4 g/dL; Glucose 96 mg/dL (74-106); Potassium 3.7 mmol/L (3.5-5.1); Sodium 139 mmol/L (136-145); Total Protein 7.8 g/dL (6.4-8.2)
[2024-01-22 19:48] LABS: Bilirubin Urine SMALL (NEGATIVE); Blood Urine NEGATIVE (NEGATIVE); Clarity Urine CLEAR (CLEAR); Color Urine YELLOW (YELLOW); Glucose Urine UA NEGATIVE (NEGATIVE); Ketones Urine 40 mg/dL (NEGATIVE); Leukocyte Esterase Urine NEGATIVE (NEGATIVE); Nitrite Urine NEGATIVE (NEGATIVE); Protein Urine NEGATIVE (NEG/TRACE); Urine Microscopic Indicated NO; Urobilinogen Urine 0.2 EU/dL (0.2-1.0)
[2024-01-22 19:53] VITALS: BP 132/82; PULSE 89; O2SAT 98
[2024-01-22 20:23] LABS: HCG Qualitative NEGATIVE (NEGATIVE); Internal Control Within Normal Limits
[2024-01-22] MEDS: METRONIDAZOLE/SODIUM CHLORIDE 500 MG/100 ML PREMIX 100 MG IV (20:35)
[2024-01-22 20:49] VITALS: TEMP 36.4
[2024-01-22 21:02] VITALS: BP 130/86; PULSE 79; O2SAT 97
[2024-01-22 21:09] VITALS: BP 127/80; PULSE 88; TEMP 37.4; O2SAT 94; BMI 39.5
--- OUTSIDE RECORDS SUMMARY | 2024-01-22 21:12 | XMS_ITS | CCD ---
Author Organization [facility] Care Team Providers Care Freight And Passenger Agent Name Role Phone David Ayala Unavailable Unavailable [...] Yuan Referring Unavailab SEJAL León Attending Unavailable ESJAL DONAHUE Referring Unavailable Allergies Allergy Classification Reported Allergen(s) Allergy Type Date of Onset Reaction(s) Facility (1 source) ceFAZolin Drug Allergy 4 [facility] Repository (1 source) Corticosteroids Drug allergy (disorder) [facility] (2 sources) ceFAZolin Drug Allergy 4 Unknown [facility] (2 sources) Fish Oils Drug Allergy 4 Unknown [facility] (2 sources) Ibuprofen Drug Allergy 4 Unknown [facility] (2 sources) Other Propensity to adverse reactions 4 [facility] Medications Current Medications Medication Drug Class(es) [...] VOMITING 0 06/13/2023 Active polyethylene glycol 3350 30548 mg powder for oral solution (2 sources) [...] VERY IMPORTANT TO YOUR HEALTH. THE CURRENT [employer] GUIDELINES RECOMMENDS ANNUAL MAMMOGRAPHY BEGINNING AT AGE 40 THIS FACILITY USES A REMINDER SYSTEM TO ENSURE ALL PATIENTS RECEIVE REMINDER NOTIFICATIONS AT THE APPROPRIATE TIME BASED ON THE RECOMMENDATIONS OF THIS EXAM. Report reported and signed by Da Jeff on 02/03/2022 0914 Normal [facility] MRI Ankle w/o Righton 2021 [...] by Rob Barcenas on 11/17/2021 0734 Normal [facility]er XR HAND RT MIN 3Von 10-24-19 22 [...] LOPES Date: 2021-10-23 17:06 Normal [facility] Encounters Encounter Date Encounter Type Care Provider Facility Start: 10-27-2023 End: 10-27-2023 ambulatory SEJAL DONAHUE Not Available Start: 09-18-2023 End: 09-18-2023 ambulatory SEJAL DONAHUE Not Available Start: 09-18-2023 End: 09-18-2023 Office outpatient visit 25 minutes Sejal Donahue DPM Work Phone: [facility] Comment on above: Common peroneal neur [...] GLADYS KEBEDE Facility:[facility] Start: 07-19-2017 [facility] Start: 06-21-2017 Ambulatory David Ayala Facility:[facility] Start: 06-09-2017 Ambulatory David Ayala Facility:[facility] Procedures Date Procedure Procedure Detail Performing Clinician Start: 08-22-2023 H/O: hysterectomy History of hystere ctomy Sejal Donahue DPM Work Phone: Start: 02-03-2022 Mammography Sejal Godfrey DPM Work Phone: Plan of Treatment Date Care Activity Detail Author Start: 02-11-2024 Influenza vaccination Influenza Vacc ine (#1) [facility] Comment on above: Postponed from 04/14 (Patient Refused) Start: 09-20-2023 End: 09-20-2024 EMG 2 Extremities EMG 2 Extremities Neurology Routine 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 Expected: 09/20/2023 (Approximate), Expires: 09/20/2024 [facility] Work Phone: Comment on above: Expected: 09/20/2023 (Approximate), Expires: 09/20/2024 Start: 02-03-2023 Screening for malign ant neoplasm of breast Mammogram [facility] Immunizations Immunization Date Immunization Notes Care Provider Ross bolanos 08-29-2016 tetanus toxoid, redu dangelo diphtheria toxoid, and acellular pertussis vaccine, adsorbed Sejal Donahue DPM Work Phone: [facility] Payers Date Payer Category Payer Unknown BCBS BCBS [id number] 2023-Present [phone] [address] [place] [address] [id number] 2023 Unknown [id number] 2023 Unknown [id number] 2017 Unknown [id number] 1979 Unknown [id number] 1979 Unknown [id number] 1979 Unknown [id number] 1979 Unknown [id number] 1979 Unknown [id number] 1979 Unknown [id number] 1979 Unknown [id number] 1959 Unknown [id number] Social History Date Type Detail Facility Start: [...] further treatment options. documented in this encounter [facility] Evaluation note Note Date & Type Note [...] DPM [address] [place] [address] Referral ID Status Reason Start Date Expiration Date V isits Requested Visits Authorized [id number] Incomplete 09/20/2023 03/18/2024 1 1 Additional Source Comments INFORMATION SOURCE (unrecogn ized section and content) DATE CREATED AUTHOR 02/06/2018 [facility] DATE CREATED AUTHOR AUTHOR'S ORGANIZ ATION 10/25/2021 [facility] DATE CREATED AUTHOR AUTHOR'S ORGANIZ ATION 02/04/2022 [facility] DATE CREATED AUTHOR AUTHOR'S ORGANIZ ATION 10/29/2023 [facility] EPIC Reason for Visit (unrecogniz ed section and content) Reason Comments Ankle Pain Care Teams (unrecognized sec tion and content) Freight And Passenger Agent Relationship Specialty Start Date End Date Gladys Kebede MD [address] [place] [address] PCP - [facility] 06/14/22 Gladys Kebede MD [address] [place] [address] PCP - General Family Medicine 12/20/22 FOR [...] BE BASED ON THE PRIMARY CLINICAL RECORDS. [facility] [employer] [facility]. provides no warranty or guarantee of the accuracy or completeness of information in this document.
[2024-01-22] MEDS: CIPROFLOXACIN IN 5 % DEXTROSE 400 MG/200 ML PIGGYBACK 200 MG IV (21:48)
[2024-01-22] MEDS: PROCHLORPERAZINE 10 MG/2 ML VIAL IV (21:57)
[2024-01-22] MEDS: 0.9 % SODIUM CHLORIDE 1,000 ML 100 ML IV (22:55)
[2024-01-23] MEDS: METRONIDAZOLE/SODIUM CHLORIDE 500 MG/100 ML PREMIX 100 MG IV ×2 (03:10→11:32)
[2024-01-23] MEDS: HYDROMORPHONE HCL 1 MG/ML CARTRIDGE 0.5 MG IVP ×2 (03:24→09:06)
[2024-01-23] MEDS: ONDANSETRON PF 4 MG/2 ML VIAL IV (03:24)
[2024-01-23 04:31] VITALS: BP 117/72; PULSE 88; TEMP 36.8; O2SAT 94
[2024-01-23 05:53] LABS: Basophils Percent Auto 0.4 % (0.2-2.0); Eosinophils Absolute Auto 0.1 10^3/uL (0.0-0.7); Eosinophils Percent Auto 0.9 % (0.9-7.0); Hematocrit 35.8 % (36.0-48.0); Hemoglobin 11.5 g/dL (12.0-16.0); Immature Granulocytes Abs Auto 0.05 10^3/uL (0.00-0.03); Immature Granulocytes Pct Auto 0.4 % (0.0-0.5); Lymphocytes Absolute Auto 1.4 10^3/uL (1.2-3.8); Lymphocytes Percent Auto 12.5 % (20.5-60.0); Mean Corpuscular HGB Conc 32.1 g/dL (29.9-35.2); Mean Corpuscular Hemoglobin 30.3 pg (26.7-34.0); Mean Corpuscular Volume 94.2 fL (81.0-99.0); Monocytes Absolute Auto 0.9 10^3/uL (0.3-0.8); Monocytes Percent Auto 7.9 % (1.7-12.0); Neutrophils Absolute Auto 8.7 10^3/uL (1.4-6.5); Neutrophils Percent Auto 77.9 % (43.0-75.0); Platelet Count 330 10^3/uL (150-450); Red Cell Distribution Width 11.4 % (11.0-15.0); White Blood Count 11.2 10^3/uL (4.0-11.0)
[2024-01-23 06:21] LABS: Alanine Aminotransferase 29 U/L (14-59); Albumin Globulin Ratio 0.6; Albumin Level 2.6 g/dL (3.4-5.0); Alkaline Phosphatase 58 U/L (46-116); Anion Gap 14.3; Aspartate Amino Transferase 14 U/L (15-37); BUN Creatinine Ratio 8.8; Bilirubin Total 0.6 mg/dL (0.2-1.0); Chloride 102 mmol/L (98-107); Estimated GFR (African America >60 (>=60); Estimated GFR (Non-African Ame >60 (>=60); Globulin 4.3 g/dL; Glucose 95 mg/dL (74-106); Potassium 3.3 mmol/L (3.5-5.1); Sodium 138 mmol/L (136-145); Total Protein 6.9 g/dL (6.4-8.2)
[2024-01-23] MEDS: CIPROFLOXACIN IN 5 % DEXTROSE 400 MG/200 ML PIGGYBACK 200 MG IV (09:06)
[2024-01-23 09:14] VITALS: BP 154/82; PULSE 83; TEMP 36.9; O2SAT 94
[2024-01-23] MEDS: 0.9 % SODIUM CHLORIDE 1,000 ML 100 ML IV (10:08)
[2024-01-23] MEDS: POTASSIUM CHLORIDE 10 MEQ ER TABLET 20 MEQ PO (11:29)
[2024-01-23] MEDS: OXYCODONE HCL/ACETAMINOPHEN 5MG/325MG 1 TAB PO (11:30)
--- NOTE | 2024-01-23 11:51 | CM.NOTE ---
Rounds made with Dr. Mccarthy. Potential plan for discharge later today after tolerates full liquid diet.
--- NOTE | 2024-01-23 14:54 | P.HP_ITS ---
<Statement entered by Aftab Mccarthy MD - 01/23/24 18:32> Patient seen and examined, agree with assessment and plan below. Presented with abdominal pain for 1 week. ER 01/[address] showed GB sludge and right ovarian cyst. Continued pain and worsened. Pain on left abdomen and LLQ. Returned to ER and CT with colitis. Admitted and started cipro and flagyl. Improved with t reatment and discharged. Diagnosis: 1. Colitis 2. Abdominal pain 3. Obesity HPI H&P: HPI History of Present Illness Chief complaint: Abdominal Pain, Colitis Narrative: 01/23/24 1015 This is a 43-year-old female patient with a past medical history significant for diverticulosis with recurrent diverticular flares; who reported to the ED for the second time in a week yesterday complaining of abdominal pain. She was in the ED on 01/16/2024 with left upper quadrant/left flank pain. CT imaging at that time was negative except for constipation. She was discharged home on stool softeners. Her pain continue to advance and she noted onset of frequent diarrhea after treating with stool softeners. This did lessen but did not resolve and she continued to have 2-3 nonbloody, slightly mucoid, watery loose stools daily. Her abdominal pain also continued to intensify and migrated to her left lower quadrant. She returned to the ED yesterday for further evaluation. Workup in the ED revealed leukocytosis (12.4) and borderline fever (99.3). CT of the abdomen and pelvis revealed inflammatory changes of the descending and rectosigmoid colon concerning for colitis. No evidence of diverticulitis was noted. As the patient's pain was persistent she was admitted in observation last night to the hospitalist service. At the time of my exam the patient is resting comfortably in bed. She reports that her pain is significantly improved and she has had no further watery stools since admission. She did note 1 episode of nausea and vomiting just prior to presenting to the ED but this has not recurred. As her symptoms are improving, we will attempt to advance her diet at least until fall and control her pain with p.o. medications. If this is successful the patient will likely be discharged later today on p.o. Cipro and Flagyl. She should follow-up with her PCP after discharge within 5 to 7 days. Opioid HPI Opioid Management Most Recent Opioid Data: Last Pain Scale 1 01/23/24 13:00 Last Pain Assessment 01/23/24 13:00 Last ED Pain Assessment 01/22/24 18:28 Last MAR Pain Assessment 01/23/24 12:30 Last ORT Total Score 0 01/22/24 21:09 Last ORT Risk Category Low Risk 01/22/24 21:09 Review of Systems ROS Status of ROS 10 or more systems reviewed and unremark able except as noted in history and below PFSH PFSH Medical History (Updated 01/23/24 @ 15:07 by Aster Lerma NP) Diverticulosis ?K57.90 - Diverticulosis of intestine, part unspecified, without perforation or abscess without bleeding (ICD-10) Obesity (BMI 30-39.9) ?E66.9 - Obesity, unspecified (ICD-10) Surgical History (Updated 01/23/24 @ 00:23 by Radha Michel) History of ankle surgery ?Z98.890 - Other specified postprocedural states (ICD-10) H/O: hysterectomy ?Z90.710 - Acquired absence of both cervix and uterus (ICD-10) Family History (Updated 01/22/24 @ 21:31 by Radha Michel) Father Family history of CHF (congestive heart failure) Family history of COPD (chronic obstructive pulmonary disease) Family history of cancer Family history of hypertension Family history of myocardial infarction Family history of stroke Grandfather Family history of diabetes mellitus Grandmother Family history of diabetes mellitus Social History (Updated 01/22/24 @ 21:32 by Radha Michel) Within the past year, how often did you have a drink containing alcohol: never Score interpretation: A score less than 3 is consistent with normal alcohol consumption. Smoking status: Former smoker Non-prescribed substance use: denies use Previous occupational history: owns own business Highest level of school completed/degree received: Bachelor's degree Are you now , , , , never or living with a partner: In a typical week, how many times do you talk on the telephone with family, friends, or neighbors: 3 or more times per week How often do you get together with friends or relatives: 3 or more times per week How often do you attend hindu or alevism services: 4 or more times per year Do you belong to any clubs or organizations such as hindu groups unions, [employer] or athletic groups, or school groups: yes Total score: 4 Score interpretation: A score of greater than or equal to 2 indicates the lowest level of social isolation. Little interest or pleasure in doing things: not at all Feeling down, depressed, or hopeless: not at all Feel stressed/tense/nervous/anxious/difficulty sleeping: not at all Do you think of yourself as: straight/heterosexual Gender Identity: female Meds Home Medications and Allergies Home Medications ?Medication ?Instructions ?Recorded ?Confirmed ?Type ciprofloxacin HCl 500 mg tablet 500 mg PO Q12H 10 days #20 tabs 01/22/24 Rx (Cipro) metronidazole 500 mg tablet 500 mg PO TID 10 days #30 tabs 01/22/24 Rx ondansetron HCl 4 mg tablet 4 mg PO Q8H PRN nausea and 01/23/24 Rx vomiting 4 days #10 tabs oxycodone-acetaminophen 5 mg-325 1 tab PO Q6H PRN pain #14 tabs 01/23/24 Rx mg tablet Allergies Allergy/AdvReac Type Severity Reaction Status Date / Time cefazolin [From [facility]] Allergy Intermediate Verified 01/22/24 16:08 prednisone Allergy Intermediate Unknown Verified 01/22/24 16:08 Exam Constitutional Vital Signs, click to edit/add: Last Vital Signs Temp 98.5 F 01/23/24 09:14 Pulse 83 01/23/24 09:14 Resp 18 01/23/24 09:14 BP 154/82 H 01/23/24 09:14 Pulse Ox 94 L 01/23/24 09:14 O2 Del Method Room Air 01/23/24 09:14 Common normals: no apparent distress, oriented x3, alert and well nourished General appearance: cooperative Orientation/consciousness: Yes awake HENMT Common normals: normocephalic, head/scalp atraumatic, hearing grossly normal bilaterally, external nose normal and moist oral mucous membranes Head and scalp: normocephalic and atraumatic Face and sinus: normal facial exam Nose: external nose normal Eye Common normals: PERRL, EOMs intact bilaterally, conjunctivae normal and no scleral icterus Alignment: alignment normal Eyelid: eyelids normal Conjunctiva: conjunctiva(e) normal Pupil: PERRL Neck & C-Spine Common normals: full ROM, supple and no JVD Chest Common normals: inspection of chest normal Chest: symmetrical chest wall rise Respiratory Common normals: normal respiratory effort, no retractions, no use of accessory muscles and clear to auscultation bilaterally Effort & inspection: able to speak in complete sentences Cardio Common normals: no JVD, regular rate, regular rhythm, S1 normal heart sound, S2 normal heart sound, no gallops, no clicks, no murmurs, no rub and peripheral pulses 2+ throughout GI Common normals: Normal to inspection, nondistended, normoactive bowel sounds present, soft to palpation, no hepatosplenomegaly, no masses and no bruits Palpation: tender Details: LLQ; no guarding, not rigid and no rebound tenderness present Bladder/kidney exam: bladder normal to palpation Bimanual exam- vagina & uterus: bladder normal to palpation Back & Pelvis Common normals: thoracic and lumbar spine normal to inspection Extremity Common normals: normal capillary refill and no pedal edema General: normal exam except as noted; no clubbing and no cyanosis Neuro Westfall Coma Scale: GCS not evaluated Common normals: oriented x3, CN's II-XII intact bilaterally, moves all extremities, no focal motor deficits and no sensory deficits noted Sensorium/orientation: awake and alert Speech: speech normal Motor exam: strength 5/5 throughout Psych Common normals: mental status grossly normal, thought process normal, affect normal and activity/motor behavior normal Thought process: normal thought process Results Labs Labs: Short CBC 01/22/24 01/23/24 Range/Units 17:05 04:59 WBC 12.4 H 11.2 H (4.0-11.0) 10^3/uL Hgb 13.5 11.5 L (12.0-16.0) g/dL Hct 40.1 35.8 L (36.0-48.0) % Plt Count 326 330 (150-450) 10^3/uL BMP 01/22/24 01/23/24 17:05 04:59 Sodium 139 138 Potassium 3.7 3.3 L Chloride 101 102 Carbon Dioxide 25.3 25.0 BUN 10.0 6.0 L Creatinine 0.83 0.68 Glucose 96 95 Calcium 9.3 8.0 L Liver Function 01/22/24 01/23/24 Range/Units 17:05 04:59 Total Bilirubin 0.6 0.6 (0.2-1.0) mg/dL AST 18 14 L (15-37) U/L ALT 33 29 (14-59) U/L Alkaline Phosphatase 67 58 (46-116) U/L Albumin 3.4 2.6 L (3.4-5.0) g/dL Urine 01/22/24 Range/Units 19:40 Urine Color Yellow (YELLOW) Urine Clarity Clear (CLEAR) Urine pH 6.0 (5.0-9.0) Ur Specific [place] 1.020 (1.005-1.025) Urine Protein Negative (NEG/TRACE) mg/dL Urine Glucose (UA) Negative (NEGATIVE) mg/dL Pulse Oximetry Attestation: I have reviewed the pertinent pulse oximetry results. Imaging CT scan - abdomen: Attestation: I have reviewed the pertinent imaging results. Radiologist's impression: IMPRESSION: 1. Acute inflammatory changes are present throughout the descending colon in the rectosigmoid colon in a distribution concerning for colitis. 2. Hepatomegaly and diffuse hepatic steatosis. Assessment and Plan Assessment and Plan (1) Colitis: Assessment and Plan: Acute * Adm observation * CT imaging found descending and rectosigmoid colonic inflammation concerning for colitis. No evidence of acute diverticulitis * Presumed infectious in setting of leukocytosis, low grade temp (100.0, 99.3) * 1 week course of abd pain followed by watery, non-bloody, slightly mucoid diarrhea (2-3x/day). Consistent w/ mild colitis * Possible stercoral colitis initially 2/2 constipation - see ED visit from 01/16/24 * IVPB Cipro/Flagyl initiated in the ED * Plan to continue PO cipro/flagyl at discharge to complete a 10 day course * NS IVF given for possible dehydration 2/2 GI losses from diarrhea * Hydromorphone & Percocet for pain - adequately controlled * Clear liquid diet * Plan to discharge home later today if pt is able to tolerate advancing her diet to full liquid (2) Abdominal pain: Assessment and Plan: Acute * 2/2 colitis * see above (3) Hypokalemia: Assessment and Plan: Acute * Mild - K+ 3.3 * suspect 2/2 hemodilution after IVF administration and also 2/2 to GI losses * KCL 20 meq PO x 1 now (4) Diverticulosis: Assessment and Plan: Chronic * No evidence of acute diverticular flare on CT imaging
== END 2024-01-23 17:00 | disposition home or self-care (01) ==
LOC: ER 20:41 → MS 21:09
PROVIDERS: Nurse Practitioner Family; Registered Nurse; Admitting Provider Family Medicine; Emergency Provider Emergency Medicine; PCP Family Medicine; Visit Provider Family Medicine
DX: K52.9 Noninfective gastroenteritis and colitis, unspecified (principal); R10.9 Unspecified abdominal pain; E66.9 Obesity, unspecified; Z87.891 Personal history of nicotine dependence; E87.6 Hypokalemia; K57.90 Diverticulosis of intestine, part unspecified, without perforation or abscess without bleeding; Z68.39 Body mass index [BMI] 39.0-39.9, adult
CPT/HCPCS: 36415; 74177; 80053; 81003; 83690; 84703; 85025; 87045; 87493; 87507; 96361; 96365; 96366; 96368; 96375; 96376; 99285; G0378; J1170; Q9967

== ENCOUNTER 2024-03-27 08:01 | Outpatient (OUT) | payer BC, SELFPAY ==
--- NOTE | 2024-03-27 08:04 | US_ITS ---
The [address] [address] Patient Name: CESAR LOPEZ MRN: [id number] date: 1980 Sex: F Assigned Patient Location: [facility] Current Patient Location: Accession/Order Number: [id number] Exam Date: 03/27/2024 08:04 Report Date: 03/28/2024 13:57 At the request of: DARIANA BOSTON Procedure: US pelvis EXAMINATION: US pelvis HISTORY: RIGHT OVARIAN CYST COMPARISON: CT abdomen pelvis 01/22/2024 TECHNIQUE: Transabdominal and/or transvaginal sonographic examination was performed as indicated by examination type. FINDINGS: UTERUS: Hysterectomy. RIGHT OVARY: Contains a 2.1 cm benign-appearing follicle. Duplex Doppler demonstrates normal waveform and flow; resistive index 0.5. Ovary size: 3.3 x 2.0 x 2.8 cm LEFT OVARY: Oophorectomy CUL-DE-SAC: Unremarkable. No significant free fluid. BLADDER: Unremarkable. OTHER: None. US/US pelvis IMPRESSION: 1. Incidental right ovarian follicle /cyst. No suspicious findings.. Electronically authenticated by: GERALDO MENDOZA Date: 03/28/2024 13:57
--- OUTSIDE RECORDS SUMMARY | 2024-03-27 08:15 | XMS_ITS | CCD ---
Author Organization [facility] ion [facility] Care Team Providers Care Sales Recruiter Name Role Phone David Ayala Unavailable Unavailable Weiricha, David Simons Unavailable Unavailable Mike Lara Unavailable Unavailable Yandy, Gladys Hawthorne Unavailable Unavailable Weijosephineher, David Simons Unavailable Unavailable Yandy, Gladys Hawthorne Unavailable Unavailable Jamie, David Simons Unavailable Unavailable [...] León Attending Unavailable SEJAL DONAHUE Referring Unavailable NEVILLE IRENE Attending Unavailab NEVILLE Chiu Attending Unavailab NEVILLE Chiu Attending Unavailab ANALIA Kirby Attending Unavailable NEVILLE IRENE Referring Unavailab le Allergies Allergy Classification Reported Allergen(s) Allergy Type Date of Onset Reaction(s) Facility (1 source) ceFAZolin Drug Allergy [address] [facility]ository (1 source) Corticosteroids Drug allergy (disorder) [facility] (2 sources) ceFAZolin Drug Allergy 4 Unknown [facility] (2 sources) Fish Oils Drug Allergy 4 Unknown [facility] (2 sources) Ibuprofen Drug Allergy 4 Unknown [facility] (2 sources) Other Propensity to adverse reactions 4 [facility] Medications Current Medications Medication Drug Class(es) [...] VOMITING 0 06/13/2023 Active polyethylene glycol 3350 79578 mg powder for oral solution (2 sources) [...] VERY IMPORTANT TO YOUR HEALTH. THE CURRENT [employer] [employer] GUIDELINES RECOMMENDS ANNUAL MAMMOGRAPHY BEGINNING AT AGE 39 THIS FACILITY USES A REMINDER SYSTEM TO ENSURE ALL PATIENTS RECEIVE REMINDER NOTIFICATIONS AT THE APPROPRIATE TIME BASED ON THE RECOMMENDATIONS OF THIS EXAM. Report reported and signed by Da Jeff on 02/03/2022 0914 Normal [facility] Impregnator MRI Ankle w/o Righton 2021 MRI Ankle [...] by Rob Barcenas on 11/17/2021 0734 Normal [facility] [employer] Impregnator XR HAND RT MIN 3Von 10-24-19 22 [...] by: JANICE LOPES Date: 2021-10-23 17:06 Normal [facility] Encounters Encounter Date Encounter Type Care Provider Facility Start: 03-18-2024 End: 03-18-2024 ambulatory ANALIA RIVERS Not Available Start: 03-13-2024 End: 03-13-2024 ambulatory NEVILLE IRENE Not Available Start: 01-30-2024 End: 01-30-2024 ambulatory NEVILLE BLACKK Not Available Start: 01-22-2024 End: 01-22-2024 ambulatory NEVILLE IRENE Not Available Start: 10-27-2023 End: 10-27-2023 ambulatory SEJAL DONAHUE Not Available Start: 09-18-2023 End: 09-18-2023 Office outpatient visit 25 minutes Sejal Donahue DPM Work Phone: [facility] Comment on above: 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 Start: 06-21-2017 Ambulatory David mendoza Trinidad Facility:[facility] Start: 06-09-2017 [facility] Procedures Date Procedure Procedure Detail Performing Clinician Start: 08-22-2023 H/O: hysterectomy History of hystere ctomy Sejal Donahue DPM Work Phone: Start: 02-03-2022 Mammography Sejal Donahue DPM Work Phone: Plan of Treatment Date Care Activity Detail Author Start: 02-11-2024 Influenza vaccination Influenza Vacc ine (#1) [facility] Comment on above: Postponed from 04/14 (Patient Refused) Start: 09-20-2023 End: 09-20-2024 EMG 2 Extremities EMG 2 Extremities Neurology Routine 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 Expected: 09/20/2023 (Approximate), Expires: 09/20/2024 [facility] Work Phone: Comment on above: Expected: 09/20/2023 (Approximate), Expires: 09/20/2024 Start: 02-03-2023 Screening for malign ant neoplasm of breast Mammogram [facility] Immunizations Immunization Date Immunization Notes Care Provider Fa pepety 08-29-2016 tetanus toxoid, redu dangelo diphtheria toxoid, and acellular pertussis vaccine, adsorbed Sejal Donahue DPM Work Phone: [facility] Payers Date Payer Category Payer Unknown BCBS BCBS [id number] [id number] 2023-Present [phone] [address] [place] [address] [id number] 2023 Unknown [id number] 2023 Unknown [id number] 2017 Unknown [id number] 1980 Unknown [id number] [id number] 1979 Unknown [id number] [id number] 1979 Unknown [id number] [id number] 1979 Unknown [id number] [id number] 1979 Unknown [id number] [id number] 1979 Unknown [id number] [id number] 1979 Unknown [id number] 2.16.840.1.349521.3.579.2.1259 1979 Unknown [id number] 2.16.840.1.227044.3.579.2.1259 1979 Unknown [id number] [id number] 1979 Unknown [id number] [id number] 1979 Unknown [id number] [id number] 1959 Unknown [id number] Social History Date Type Detail Facility Start: [...] Sex Assigned At Not on file [facility] Start: 10-26-2022 Gender identity Identifies as female gender (finding) [facility] History of Present illness Narrative 09-18-2023 Sejal Donahue DPM - 09/18/2023 4:00 PM ESTSejal Donahue DPM - 09/18/2023 4:00 PM EST Note Date & Type Note Facility 09-18-2023 History of Presen t illness Narrative Duplicate HPI: Cesar Mcginnis Cherri presents today for evaluation of bilateral ankle [...] further treatment options. 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 Procedures EMG 2 Extremities Sejal Donahue DPM [address] [place] [address] Referral ID Status Reason Start Date Expiration Date V isits Requested Visits Authorized [id number] Incomplete 09/20/2023 03/18/2024 1 1 Additional Source Comments INFORMATION SOURCE (unrecogn ized section and content) DATE CREATED AUTHOR 02/06/2018 [facility] DATE CREATED AUTHOR 'S ORGANIZ ATION 10/25/2021 [facility] DATE CREATED AUTHOR AUTHOR'S ORGANIZ ATION 02/04/2022 [facility] DATE CREATED AUTHOR AUTHOR'S ORGANIZ ATION 03/19/2024 [facility] EPIC Reason for Visit (unrecogniz ed section and content) Reason Comments [facility] Care Teams (unrecognized sec tion and content) Sales Recruiter Relationship Specialty Start Date End Date Gladys Kebede MD [address] [place] [address] PCP - [facility] 06/14/22 Gladys Kebede MD [address] [place] [address] PCP - General Family Medicine 12/20/22 FOR [...] BE BASED ON THE PRIMARY CLINICAL RECORDS. [facility] [employer] [facility]. provides no warranty or guarantee of the accuracy or completeness of information in this document.
== END 2024-03-27 08:02 | disposition home or self-care (01) ==
LOC: NOMS 08:02
PROVIDERS: PCP Family Medicine; Visit Provider Physician Assistant
DX: N83.201 Unspecified ovarian cyst, right side (principal)
CPT/HCPCS: 76856

== ENCOUNTER 2024-11-18 21:19 | Outpatient (REF) | payer BC, SELFPAY ==
--- OUTSIDE RECORDS SUMMARY | 2024-11-18 21:31 | XMS_ITS | CCD ---
Author Organization [facility] Care Team Providers Care Resolution Analyst Name Role Phone David Ayala Unavailable Unavailable Weidenbec, David Bowlesgfried Unavailable Unavailable Mike Lara Unavailable Unavailable Yandy, Gladys Hawthorne Unavailable Unavailable Weidenbecher, David Obandoied Unavailable Unavailable Yandy, Gladys Hawthorne Unavailable Unavailable Weihowardbec, David Bowlesgfried Unavailable Unavailable Yandy, Gladys Hawthorne Unavailable Unavailable YANDY, DR READ Primary Care Unavailable NELA, DR ESCOBAR Consulting Unavailable NELA, DR ESCOBAR Attending Unavailable NELA, DR ESCOBAR Admitting Unavailable GEORGIA, DR JARED Tomas Consulting Unavailmelly KEBEDE, DR READ Primary Care Unavailable GEORGIA, DR JARED Tomas Attending Unavailabl e GEORGIA, DR JARED Tomas Admitting Unavailabl e Strawser, Janice Consulting Unavailable Gladys Kebede MD Unavailable Gladys Kebede MD Primary Care Provider MD Gladys Morgan Primary Care Pr ovider MD Robson Eastman Attending Provider Lani RETAIL OPERATIONS MANAGERPayton Unavailable Gladys Morgan Primary Care Un available Robson Eastman Attending Unavailable Robson Eastman Admitting Unavailable PAYTON GARIBAY Attending Unavailab le PAYTON GARIBAY Attending Unavailab le PAYTON GARIBAY Attending Unavailab ANALIA Kirby Attending Unavailable PAYTON GARIBAY Referring Unavailab ANALIA Kirby Attending PAYTON Olivas Attending UnavailPAYTON Mims Referring Unavailab PAYTON Chiu Attending Wallyab PAYTON Chiu Referring Unavailab SEJAL León Attending Unavailable LAW ALFRED Attending Unavailab LAW Yuan Referring Unavailab DARCY [place] Referring Unavailable POCDARCY MARTINEZ Attending Unavailable LAW ALFRED Referring Unavailab le Allergies Allergy Classification Reported Allergen(s) Allergy Type Date of Onset Reaction(s) Facility (1 source) ceFAZolin Drug Allergy 4 [facility] Repository (1 source) Corticosteroids Drug allergy (disorder) [facility] Repository (20 sources) ceFAZolin Drug Allergy 4 Unknown [facility] (2 sources) Fish Oils Drug Allergy 4 Unknown [facility] (20 sources) Ibuprofen Drug Allergy 4 Unknown [facility] (18 sources) Other Propensity to adverse reactions 4 [facility] (1 source) ceFAZolin Drug Allergy 4 [facility] Repository (1 source) Ibuprofen Drug Allergy 4 [facility] Repository Medications Current Medications Medication Drug Class(es) Dates Sig (Normalized) Sig (Original) albuterol 0.83 mg/ml inhalation solution (20 sources) beta2-Adrenergic Agonist Start: 09-01-2023 End: 08-31-2024 albuterol (2.5 MG/3ML) 0.083% nebulizer solution Indications: Mild intermittent asthma with exacerbation (CMS/HCC) Take 3 mL (2.5 mg) by nebulization every 6 (six) hours if needed for wheezing 75 mL 1 09/01/2023 Active Start: 08-22-2023 End: 08-21-2024 take 2 puff(s) by inhalation every four hours for wheezing albuterol HFA (Ventolin HFA) 90 mcg/act inhaler Indications: Mild intermittent asthma with exacerbation (CMS/HCC) Inhale 2 puffs every 4 (four) hours if needed for wheezing 18 g 1 08/22/2023 Active ascorbic acid 250 mg oral tablet (18 sources) Vitamin C Ascorbic Acid (vitamin C) 250 MG tablet Take 1,500 mg by mouth in the morning. Active azithromycin 250 mg oral tablet (15 sources) Macrolide Antimicrobial Start: End: azithromycin (Zithromax) 250 MG tablet Indications: Acute left otitis media Take 2 tablets (500mg) by mouth on day one, then take 1 tablet (250mg) by mouth daily on days 2-5 6 tablet 06/12/2024 11/18/2024 Discontinued cholecalciferol 0.025 mg oral tablet (18 sources) Vitamin D take 1 tablet by mouth in the morning cholecalciferol (Vitamin D-3) 25 MCG (1000 UT) tablet Take 1,000 Units by mouth in the morning. Active fluconazole 150 mg oral tablet (2 sources) Azole Antifungal Start: End: take 1 tablet by mouth once, then take 1 tablet by mouth once fluconazole (Diflucan) 150 MG tablet Indications: Yeast infection Take 1 tablet (150 mg) by mouth every 3rd (third) day This is a 1 time dose, take single tablet by mouth. 2 tablet 1 04/01/2024 06/12/2024 Discontinued Magnesium (12 sources) Magnesium 250 MG capsule Take by mouth Active 24 hr metFORMIN hydrochloride 500 mg extended release oral tablet (2 sources) Biguanide Start: End: take 1 tablet by mouth every twenty-four hours at mealtime metFORMIN XR (Glucophage-XR) 500 MG 24 hr tablet Indications: Well woman exam with routine gynecological exam Take 1 tablet (500 mg) by mouth in the evening. Take with meals Do not crush, chew, or split. 30 tablet 11 11/18/2024 12/18/2024 Active Multiple Vitamin (multivitamin) tablet (2 sources) take 1 tablet by mouth once daily Multiple Vitamin (multivitamin) tablet Take 1 tablet by mouth Daily Active [employer] [place] (No Known Home Meds) (2 sources) Start: [employer] [place] (No Known Home Meds) Active March 20, 2020 12:00am ondansetron 4 mg disintegrating oral tablet (2 sources) Serotonin-3 Receptor Antagonist Start: ondansetron ODT (Zofran-ODT) 4 MG disintegrating tablet DISSOLVE 1 TABLET ON THE TONGUE EVERY 6 HOURS NEEDED FOR NAUSEA AND VOMITING 0 06/13/2023 Active vitamin B12 (16 sources) Vitamin B12 Cyanocobalamin (VITAMIN B-12 PO) Take by mouth Active Completed/Discontinued Medications Medication Drug Class(es) Dates Sig (Normalized) Sig (Original) betamethasone 3 mg/ml / betamethasone acetate 3 mg/ml injectable suspension (4 sources) Corticosteroid Start: 11-15-2024 End: 11-15-2024 betamethasone acetate-betamethason e sodium phosphate (Celestone) injection 1 mL Start: 11-15-2024 End: 11-15-2024 1 mL, Intra-articular, Once PRN Procedure, Starting on Mon11/15/24 at 1346, For 1 dose 24 hr diclofenac sodium 100 mg extended release oral tablet (2 sources) Nonsteroidal Anti-inflammatory Drug Start: 07-18-2018 End: 03-20-2020 Diclofenac Sodium (Voltaren-Xr) 100 mg Tablet Extended Release 24 Hr Discontinued July 18, 2018 1:00am March 20, 2020 12:22pm Multivitamin preparation (2 sources) Start: 07-18-2018 End: 03-20-2020 Multivitamin Discontinued July 18, 2018 1:00am March 20, 2020 12:22pm polyethylene glycol 3350 90416 mg powder for oral solution (20 sources) Osmotic Laxative Start: 07-18-2018 End: 03-20-2020 Polyethylene Glycol 3350 (Miralax) 17 gram Powder In Packet Discontinued July 18, 2018 1:00am March 20, 2020 12:22pm polyethylene gly col, PEG, 3350 (Glycolax) 17 GM/SCOOP powder Take by mouth Active polyethylene gly col, PEG, 3350 (Glycolax) 17 GM/SCOOP powder Take by mouth 0 Active Problems Active Problems Problem Classification Problem Date Documented Date Episodic/Chronic Anxiety disorders (18 sources) Anxiety; Translations: [Anxiety disorder, unspecified] Onset: 08-22-2023 08-22-2023 Chronic Asthma (18 sources) Mild intermittent asthma; Translations: [Mild intermittent asthma, uncomplicated] Onset: 08-22-2023 08-22-2023 Chronic Diverticulosis and diverticulitis (20 sources) Diverticulitis; Translations: [Diverticulitis of intestine, part unspecified, without perforation or abscess without bleeding] Onset: 08-22-2023 08-22-2023 Chronic E Codes: Struck by; against (1 source) Striking against or struck by other objects, initial encounter; Translations: [STRIKING AGNST/STRUCK OTH OBJ INIT] Onset: 10-25-2021 Episodic Esophageal disorders (18 sources) Laryngopharyngeal reflux; Translations: [Gastro-esophageal reflux disease without esophagitis] Onset: 08-22-2023 08-22-2023 Chronic Headache; including migraine (18 sources) Episodic tension-type headache; Translations: [Episodic tension-type headache, not intractable] Onset: 08-22-2023 08-22-2023 Chronic Joint disorders and dislocations; trauma-related (18 sources) Derangement of medial meniscus due to injury of knee; Translations: [Derangement of unspecified medial meniscus due to old tear or injury, left knee] Onset: 08-22-2023 08-22-2023 Chronic Joint disorders and dislocations; trauma-related (2 sources) Disorder of right patellofemoral joint; Translations: [Patellofemoral disorders, right knee] 11-15-2024 Chronic Osteoarthritis (2 sources) Osteoarthritis of right knee joint; Translations: [Unilateral primary osteoarthritis, right knee] 11-15-2024 Chronic Other connective tissue disease (3 sources) Pain in right hand; Translations: [PAIN IN RIGHT HAND] Onset: 10-23-2021 Episodic Other connective tissue disease (2 sources) Peroneal tendinitis of left lower limb; Translations: [Peroneal tendinitis, left leg] 09-20-2023 Episodic Other connective tissue disease (4 sources) Pain in both feet; Translations: [Pain in right foot] 09-20-2023 Episodic Other connective tissue disease (1 source) Pain in right foot; Translations: [Pain in right foot] 06-12-2024 Episodic Other connective tissue disease (2 sources) Pain in left foot; Translations: [Pain in left foot] 10-15-2024 Episodic Other endocrine disorders (2 sources) Disorder of endocrine system; Translations: [Endocrine disorder, unspecified] 11-18-2024 Episodic Other liver diseases (2 sources) Steatosis of liver; Translations: [Fatty (change of) liver, not elsewhere classified] 04-25-2024 Chronic Other liver diseases (3 sources) Fatty (change of) liver, not elsewhere classified; Translations: [Other chronic nonalcoholic liver disease] Onset: 05-07-2024 04-25-2024 Chronic Other nervous system disorders (4 sources) Common peroneal neuropathy; Translations: [Lesion of sciatic nerve, right lower limb] 09-20-2023 Chronic Other nervous system disorders (2 sources) Neuropathy; Translations: [Polyneuropathy, unspecified] 09-20-2023 Chronic Other nervous system disorders (18 sources) Chronic pain; Translations: [Other chronic pain] Onset: 08-22-2023 08-22-2023 Chronic Other non-traumatic joint disorders (4 sources) Sinus tarsi syndrome; Translations: [Pain in left ankle and joints of left foot] 09-20-2023 Episodic Other non-traumatic joint disorders (2 sources) Sinus tarsi syndrome of left ankle; Translations: [Pain in left ankle and joints of left foot] 10-21-2024 Episodic Other non-traumatic joint disorders (2 sources) Sinus tarsi syndrome of right ankle; Translations: [Pain in right ankle and joints of right foot] 10-21-2024 Episodic Other non-traumatic joint disorders (6 sources) Pain in right knee; Translations: [Pain in joint, lower leg] 11-11-2024 Episodic Other nutritional; endocrine; and metabolic disorders (2 sources) Obesity caused by energy imbalance; Translations: [Morbid (severe) obesity due to excess calories] 10-15-2024 Chronic Other nutritional; endocrine; and metabolic disorders (2 sources) Body mass index 40+ - severely obese; Translations: [Body mass index (BMI) 40.0-44.9, adult] 10-15-2024 Chronic Other nutritional; endocrine; and metabolic disorders (2 sources) Morbid obesity; Translations: [Morbid (severe) obesity due to excess calories] 11-15-2024 Chronic Other screening for suspected conditions (not mental disorders or infectious disease) (2 sources) Patient encounter status; Translations: [Encounter for screening mammogram for malignant neoplasm of breast] 11-18-2024 Episodic Other upper respiratory disease (18 sources) Chronic laryngitis; Translations: [Chronic laryngitis] Onset: 08-22-2023 08-22-2023 Chronic Other upper respiratory disease (18 sources) Seasonal allergic rhinitis; Translations: [Other seasonal allergic rhinitis] Onset: 08-22-2023 08-22-2023 Chronic Other upper respiratory infections (18 sources) Chronic sinusitis, unspecified; Translations: [Chronic rhinitis] Onset: 08-22-2023 08-22-2023 Chronic Otitis media and related conditions (1 source) Acute left otitis media; Translations: [Otitis media, unspecified, left ear] 06-12-2024 Episodic Sprains and strains (1 source) Unspecified sprain of right thumb, initial encounter; Translations: [UNSPECIFIED SPRAIN RT THUMB INITIAL] Onset: 10-25-2021 Episodic Unclassified (1 source) Dysphonia / R49.0(ICD-10) Onset: 06-09-2017 Unclassified (2 sources) Right knee pain, unspecified chronicity 11-18-2024 Past or Other Problems Problem Classification Problem Date Documented Da te Episodic/Chronic E Codes: Natural/environment (1 source) Bitten or stung by nonvenomous insect and other nonvenomous arthropods, initial encounter; Translations: [BITTEN NONVENOM INSCT OTH ARTH INIT] Onset: 05-31-2021 Episodic Other lower respiratory disease (18 sources) Chronic cough; Translations: [Chronic cough] Onset: 08-22-2023 08-22-2023 Episodic Other non-traumatic joint disorders (18 sources) Stiffness of left ankle; Translations: [Stiffness of left ankle, not elsewhere classified] Onset: 08-22-2023 08-22-2023 Episodic Screening and history of mental health [...] Value Interpretation Reference Range Facil ity XR Knee - right 1 or 2 Views on 11-18-2024 Imaging Result: Examination of the x-ray AP bilateral weight bearing, bilateral sunrise done here today total of four views coupled with x-rays previously does show some medial squaring of the medial femoral condyle coincident with some medial compartment osteoarthritis. She does have some lateral maltracking of the patellae bilaterally. No evidence of fracture or other osseous abnormality. [facility] No Panel Informationon 11-15 Lali Burk MA 11/18/2024 7:44 AM L Inj/Asp: R knee on 11/15/2024 1:46 PM Indications: pain Details: 22 G needle Medications: 1 mL betamethasone acetate-betamethasone sodium phosphate 6 (3-3) MG/ML [employer] e XR Knee - right 1 or 2 Views on 11-15-2024 Radiology Study observation (narrative) Yuepu Sifang XR KNEE 4+ VIEWS RIGHTon XR KNEE 4+ VIEWS RIGHT EXAM: XR Right Knee, Four Views. REASON FOR EXAM: Anterior right knee pain for a few weeks, inflammation. COMPARISON: None FINDINGS: Four images of the knee are submitted. Bony cortices, joint spaces and alignment are maintained. There is no large suprapatellar effusion. Bone island proximal fibula. IMPRESSION: No acute bony abnormalities radiographically. *This report is generated using voice recognition reporting (GordianTec). On occasion Mixamoe erroneously drops words from the report or replaces the spoken word with similar sounding words. Please call with any questions/concerns regarding this report.* Dictated and transcribed 11/12/24/dpd This report has been electronically signed and approved by the interpreting radiologist. Normal Not Available XR FOOT 3+ VIEWS LEFTon 03-0 XR FOOT 3+ VIEWS LEFT Exam: XR FOOT 3+ VIEWS LEFT Reason for exam: Acute left posterio ankle pain, felt a pop in achilles area Prior comparative studies: None Findings: There is a calcaneal insertion spur and a plantar spur. There is degenerative osteophyte formation in the tibiotalar joint. No fracture, malalignment or subluxation is apparent. Osseous density is normal. Impression: 1. No acute osseous abnormality identified. 2. Degenerative spurring at the calcaneus and degenerative change in the tibiotalar joint. Dictated on: 10/15/2024 3:40 PM This report has been electronically signed and approved by the interpreting radiologist. Normal Not Available XR FOOT 1-2 VIEWS RIGHTon XR FOOT 1-2 VIEWS RIGHT Exam: XR - RT FOOT 2 VIEWS Reason for exam: Right foot pain Prior comparative studies: None Findings: Soft tissues are unremarkable. No fracture, malalignment or subluxation is apparent. Osseous density is normal. Impression: 1. No acute osseous abnormality identified. Electronically Signed Daniel Salinas M.D. 2024-06-12 12:23:50 Normal Not Available SCREENING MAMMOGRAM W/TANO, BILATERAL*on [...] VERY IMPORTANT TO YOUR HEALTH. THE CURRENT [employer] GUIDELINES RECOMMENDS ANNUAL MAMMOGRAPHY BEGINNING AT AGE 39 THIS FACILITY USES A REMINDER SYSTEM TO ENSURE ALL PATIENTS RECEIVE REMINDER NOTIFICATIONS AT THE APPROPRIATE TIME BASED ON THE RECOMMENDATIONS OF THIS EXAM. Report reported and signed by Da Jeff on 02/03/[address] [facility] [employer] MRI Ankle w/o Righton 2021 MRI Ankle [...] by Rob Barcenas on 11/17/[address] [facility] [employer] XR HAND RT MIN 3Von 10-24-19 22 [...] by: JANICE LOPES Date: 2021-10-23 17:[address] [facility] Vital Signs Date Time Vital Sign Value Performing Clinician Katharinei werner 11-18-2024 11:09-0400 Body mass index (BMI) [Ratio] 40.77 kg/m2 Yaa BABB Work Phone: [facility] 11-18-2024 11:09-0400 Body weight 111.13 kg Yaa BABB Work Phone: [facility] 11-18-2024 11:09-0400 Diastolic blood pressure 86 mm[Hg] Yaa Cedillo PA Work Phone: [facility] 11-18-2024 11:09-0400 Systolic blood pressure 120 mm[Hg] Yaa Cedillo PA Work Phone: [facility] 11-15-2024 10:01-0400 Body height 165.1 cm Darcy Nieto DO Work Phone: [facility] 11-15-2024 10:01-0400 Body mass index (BMI) [Ratio] 40.77 kg/m2 Darcy Pocos DO Work Phone: [facility] 11-15-2024 10:01-0400 Body weight 111.13 kg Darcy Gannos DO Work Phone: [facility] 11-11-2024 14:59-0400 Body height 165.1 cm Law Alfred RETAIL OPERATIONS MANAGER Work Phone: [facility] 11-11-2024 14:59-0400 Body mass index (BMI) [Ratio] 40.77 kg/m2 Law Landryburg RETAIL OPERATIONS MANAGER Work Phone: [facility] 11-11-2024 14:59-0400 Body weight 111.13 kg Law Landryburg RETAIL OPERATIONS MANAGER Work Phone: [facility] 11-11-2024 14:59-0400 Diastolic blood pressure 74 mm[Hg] Law Landryburg RETAIL OPERATIONS MANAGER Work Phone: [facility] 11-11-2024 14:59-0400 Heart rate 72 /min Law Soriaenburg RETAIL OPERATIONS MANAGER Work Phone: [facility] 11-11-2024 14:59-0400 Respiratory rate 18 /min Law [place]ryburg RETAIL OPERATIONS MANAGER Work Phone: [facility] 11-11-2024 14:59-0400 SaO2% (BldA) [Mass fraction] 98 % Law [place]ryburg RETAIL OPERATIONS MANAGER Work Phone: [facility] 11-11-2024 14:59-0400 Systolic blood pressure 120 mm[Hg] Law Soriaenburg RETAIL OPERATIONS MANAGER Work Phone: [facility] 10-15-2024 15:34-0500 Body height 165.1 cm Payton Youngpatrick RETAIL OPERATIONS MANAGER Work Phone: [facility] 10-15-2024 15:34-0500 Body mass index (BMI) [Ratio] 40.94 kg/m2 Payton Garibay RETAIL OPERATIONS MANAGER Work Phone: [facility] 10-15-2024 15:34-0500 Body weight 111.58 kg Apyton Garibay RETAIL OPERATIONS MANAGER Work Phone: [facility] 10-15-2024 15:34-0500 Diastolic blood pressure 72 mm[Hg] Payton Garibay RETAIL OPERATIONS MANAGER Work Phone: [facility] 10-15-2024 15:34-0500 Heart rate 76 /min Payton Garibay RETAIL OPERATIONS MANAGER Work Phone: [facility] 10-15-2024 15:34-0500 Respiratory rate 18 /min Payton Garibay RETAIL OPERATIONS MANAGER Work Phone: [facility] 10-15-2024 15:34-0500 SaO2% (BldA) [Mass fraction] 99 % Payton Garibay RETAIL OPERATIONS MANAGER Work Phone: [facility] 10-15-2024 15:34-0500 Systolic blood pressure 124 mm[Hg] Payton Garibay RETAIL OPERATIONS MANAGER Work Phone: [facility] 06-12-2024 12:31-0400 Body height 165.1 cm Payton Garibay RETAIL OPERATIONS MANAGER Work Phone: [facility] 06-12-2024 12:31-0400 Body mass index (BMI) [Ratio] 40.27 kg/m2 Payton Garibay RETAIL OPERATIONS MANAGER Work Phone: [facility] 06-12-2024 12:31-0400 Body weight 109.77 kg Payton Garibay RETAIL OPERATIONS MANAGER Work Phone: [facility] 06-12-2024 12:31-0400 Diastolic blood pressure 76 mm[Hg] Payton Garibay RETAIL OPERATIONS MANAGER Work Phone: [facility] 06-12-2024 12:31-0400 Heart rate 68 /min Payton Garibay RETAIL OPERATIONS MANAGER Work Phone: [facility] 06-12-2024 12:31-0400 Respiratory rate 18 /min Payton Garibay RETAIL OPERATIONS MANAGER Work Phone: [facility] 06-12-2024 12:31-0400 SaO2% (BldA) [Mass fraction] 98 % Payton Garibay RETAIL OPERATIONS MANAGER Work Phone: [facility] 06-12-2024 12:31-0400 Systolic blood pressure 124 mm[Hg] Payton Lani RETAIL OPERATIONS MANAGER Work Phone: [facility] 04-25-2024 09:290400 Body height 165.1 cm [facility] 04-25-2024 09:290 Body mass index (BMI) [Ratio] 38.2 kg/m2 [facility] 04-25-2024 09: Body weight 104.32 kg [facility] Encounters Encounter Date Encounter Type Care Provider Facility Start: 11-18-2024 End: 11-18-2024 Bamboo flowsheet Yaa BABB Work Phone: [facility] Start: 11-18-2024 End: 11-18-2024 Bamboo flowsheet Yaa BABB Work Phone: [facility] Start: 11-18-2024 End: 11-18-2024 Patient encounter procedure Yaa BABB Work Phone: [facility] Start: 11-18-2024 End: 11-18-2024 Periodic preventive med est patient 40-64yrs Yaa BABB Work Phone: [facility] Comment on above: Well woman exam with routine gynecological exam; Encounter for screening mammogram for malignant neoplasm of breast; Hormone disorder Start: 11-15-2024 End: 11-15-2024 Patient encounter procedure Darcy Nieto DO Work Phone: [facility] Comment on above: Right knee pain, uns pecified chronicity (Primary Dx); Acute pain of right knee; Primary osteoarthritis of right knee; Morbid obesity (CMS/HCC); Patellofemoral disorder of right knee Start: 11-15-2024 End: 11-15-2024 ambulatory DARCY Keita POCOS Not Available Start: 11-11-2024 End: 11-11-2024 Office outpatient visit 25 minutes Law Alfred RETAIL OPERATIONS MANAGER Work Phone: [facility] Comment on above: Acute pain of right knee (Primary Dx) Start: 11-11-2024 End: 11-11-2024 ambulatory LAW LANDRYBURG Not Available Start: 11-11-2024 End: 11-11-2024 Bamboo flowsheet Law A Rogerloco RETAIL OPERATIONS MANAGER Work Phone: [facility] Start: 11-11-2024 End: 11-11-2024 Bamboo flowsheet Law A Rogerloco RETAIL OPERATIONS MANAGER Work Phone: [facility] Start: 10-21-2024 End: 10-21-2024 ambulatory SEJAL DONAHUE Not Available Start: 10-21-2024 End: 10-21-2024 Office outpatient visit 15 minutes Sejal Donahue DPM Work Phone: [facility] Comment on above: Sinus tarsitis of le ft foot (Primary Dx); Sinus tarsitis of right foot; Pain in both feet Start: 10-15-2024 End: 10-15-2024 ambulatory PAYTON GARIBAY Not Available Start: 10-15-2024 End: 10-15-2024 Office outpatient visit 25 minutes Payton Garibay RETAIL OPERATIONS MANAGER Work Phone: [facility] Comment on above: Left foot pain (Prim susan Dx); Morbid (severe) obesity due to excess calories (CMS/HCC); Body mass index (BMI) 40.0-44.9, adult (CMS/HCC) Start: 10-15-2024 End: 10-15-2024 Bamboo flowsheet Payton Garibay RETAIL OPERATIONS MANAGER Work Phone: [facility] Start: 10-15-2024 End: 10-15-2024 Bamboo flowsheet Payton Garibay RETAIL OPERATIONS MANAGER Work Phone: [facility] Start: 09-27-2024 End: 09-30-2024 Telephone encounter Gladys Kebede MD Work Phone: [facility] Start: 06-12-2024 End: 06-12-2024 Bamboo flowsheet Payton Garibay RETAIL OPERATIONS MANAGER Work Phone: [facility] Start: 06-12-2024 End: 06-12-2024 Bamboo flowsheet Payton A Garibay RETAIL OPERATIONS MANAGER Work Phone: [facility] Start: 06-12-2024 End: 06-12-2024 Office outpatient visit 15 minutes Payton A Garibay RETAIL OPERATIONS MANAGER Work Phone: [facility] Comment on above: Right foot pain (Sia sudhir Dx); Acute left otitis media Start: 06-12-2024 End: 06-12-2024 ambulatory PAYTON A GARIBAY Not Available Start: 05-07-2024 End: 05-07-2024 Patient encounter procedure MD Gladys Kebede Work Phone: [facility] Work Phone: Start: 05-07-2024 End: 05-07-2024 ambulatory MD Gladys Kebede Work Phone: [facility] Work Phone: Start: 04-25-2024 End: 04-25-2024 ambulatory [facility] Work Phone: Start: 04-25-2024 End: 04-25-2024 Patient encounter procedure Formerly [facility] Gastroenterology Work Phone: Start: 04-01-2024 End: 04-01-2024 ambulatory ANALIA TITA Not Available Start: 03-18-2024 End: 03-18-2024 ambulatory ANALIA TITA Not Available Start: 03-13-2024 End: 03-13-2024 ambulatory PAYTON A GARIBAY Not Available Start: 01-30-2024 End: 01-30-2024 ambulatory PAYTON A GARIBAY Not Available Start: 01-22-2024 End: 01-22-2024 ambulatory PAYTON A GARIBAY Not Available Start: 09-18-2023 End: 09-18-2023 Office outpatient visit 25 minutes Sejal Donahue DPM Work Phone: [facility] Comment on above: Common peroneal neur opathy of right lower extremity (Primary Dx); Common peroneal neuropathy of left lower extremity; Neuropathy; Sinus tarsitis of left foot; Sinus tarsitis of right foot; Peroneal tendinitis of left lower extremity; Pain in both feet Start: 10-23-2021 End: 10-23-[address] JARED HO Facility:[facility] Start: 2021 End: [address] GLADYS KEBEDE Facility: Start: 07-19-2017 [facility] Start: 06-21-2017 Ambulatory David Ayala Facility:[facility] Start: 06-09-2017 [facility] Procedures Date Procedure Procedure Detail Performing Clinician Start: 11-15-2024 Arthrocentesis aspir&/inj major jt/bursa w/o us Darcy Keita Pocos DO Work Phone: Start: 11-15-2024 Radiologic examination knee 1/2 views Darcy Keita Pocos DO Work Phone: Start: 05-07-2024 Ultrasound elastography of liver MD Gladys Kebede Work Phone: Start: 08-22-2023 H/O: hysterectomy History of hysterectomy Sejal Donahue DPM Work Phone: Start: 02-03-2022 Mammography Sejal Donahue DPM Work Phone: Start: 03-23-2020 Colonoscopy Payton Garibay NP Work Phone: Plan of Treatment Date Care Activity Detail Author Start: 03-23-2030 Screening for malign ant neoplasm of colon [facility] Start: 04-14-2025 Influenza vaccination Influenz a Vaccine (Season Ended) [facility] Start: 12-13-2024 End: 12-13-2024 Patient encounter procedure 12/13/2024 10:00 AM EDT Office Visit [facility] [address] [address] Darcy Nieto DO [address] [place] [address] [facility] Start: 11-18-2024 End: 11-18-2025 C-peptide C-peptide Lab Routine Hormone disorder Expected: 11/18/2024 (Approximate), Expires: 11/18/2025 [facility] Comment on above: Expected: 11/18/2024 (Approximate), Expires: 11/18/2025 Start: 11-18-2024 End: 11-18-2025 Cortisol free Cortisol, free Lab Routine Hormone disorder Expected: 11/18/2024 (Approximate), Expires: 11/18/2025 [facility] Comment on above: Expected: 11/18/2024 (Approximate), Expires: 11/18/2025 Start: 11-18-2024 End: 11-18-2025 Glucose [Mass/volume] in Serum or Plasma Glucose, random Lab Routine Hormone disorder Expected: 11/18/2024 (Approximate), Expires: 11/18/2025 [facility] Comment on above: Expected: 11/18/2024 (Approximate), Expires: 11/18/2025 Start: 11-18-2024 End: 11-18-2025 Insulin, total Insulin, total Lab Routine Hormone disorder Expected: 11/18/2024 (Approximate), Expires: 11/18/2025 [facility] Comment on above: Expected: 11/18/2024 (Approximate), Expires: 11/18/2025 Start: 11-18-2024 End: 11-18-2025 Lipid 1996 panel - Serum or Plasma Lipid panel Lab Routine Well woman exam with routine gynecological exam Expected: 11/18/2024 (Approximate), Expires: 11/18/2025 [facility] Comment on above: Expected: 11/18/2024 (Approximate), Expires: 11/18/2025 Start: 11-18-2024 End: 01-18-2026 MG Breast - bilateral Screening Bilateral screening mammogram Imaging Routine Encounter for screening mammogram for malignant neoplasm of breast Expected: 11/18/2024 (Approximate), Expires: 01/18/2026 [facility] Work Phone: Comment on above: Expected: 11/18/2024 (Approximate), Expires: 01/18/2026 Start: 11-18-2024 End: 11-18-2025 Serotonin serum Serotonin serum Lab Routine Hormone disorder Expected: 11/18/2024 (Approximate), Expires: 11/18/2025 [facility] Comment on above: Expected: 11/18/2024 (Approximate), Expires: 11/18/2025 Start: 11-18-2024 End: 11-18-2025 Thyroglobulin Thyroglobulin Lab Routine Hormone disorder Expected: 11/18/2024 (Approximate), Expires: 11/18/2025 [facility] Comment on above: Expected: 11/18/2024 (Approximate), Expires: 11/18/2025 Start: 11-18-2024 End: 11-18-2025 Thyroglobulin Antibody Thyroglobulin Antibody Lab Routine Hormone disorder Expected: 11/18/2024 (Approximate), Expires: 11/18/2025 [facility] Comment on above: Expected: 11/18/2024 (Approximate), Expires: 11/18/2025 Start: 11-18-2024 End: 11-18-2025 Thyrotropin [Units/volume] in Serum or Plasma [facility] Comment on above: Ordered: 11/18/2024 Expected: 11/18/2024 (Approximate), Expires: 11/18/2025 Start: 11-18-2024 End: 11-18-2024 Patient encounter procedure [facility] Comment on above: Arrived Start: 11-11-2024 End: 11-11-2024 Patient encounter procedure 11/11/2024 3:00 PM EDT Office Visit [facility] [address] [place] [phone] Law Alfred NP [address] [place] [address] Arrived [facility] Comment on above: Arrived Start: 11-11-2024 End: 11-11-2025 XR Knee - right 4 Views [facility] Work Phone: Comment on above: Expected: 11/11/2024 , Expires: 11/11/2025 Start: 10-15-2024 End: 10-15-2025 XR Foot - left 3 Views XR foot 3+ views left Imaging Routine Left foot pain Expected: 10/15/2024, Expires: 10/15/2025 [facility] Work Phone: Comment on above: Expected: 10/15/2024 , Expires: 10/15/2025 Start: 07-10-2024 End: 07-10-2024 Patient encounter procedure 07/10/2024 1:00 PM EST Office Visit [facility] [address] [place] [address] Analia Santamaria DO [address] [place] [address] [facility] Start: 06-12-2024 End: 06-12-2025 XR Foot - right 2 Views [facility] Work Phone: Comment on above: Expected: 06/12/2024 , Expires: 06/12/2025 Start: 06-12-2024 End: 06-12-2024 Patient encounter procedure 06/12/2024 12:30 PM EDT Office Visit [facility] [address] [place] [phone] Payton Garibay NP [address] [place] [address] Arrived [facility] Comment on above: Arrived Start: 05-07-2024 [facility] Start: 04-14-2024 Influenza vaccination Influenza Vacc ine (#1) [facility] Start: 02-11-2024 Influenza vaccination Influenza Vacc ine (#1) [facility] Comment on above: Postponed from 04/14 (Patient Refused) Start: 09-20-2023 End: 09-20-2024 EMG 2 Extremities EMG 2 Extremities Neurology Routine 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 Expected: 09/20/2023 (Approximate), Expires: 09/20/2024 [facility] Work Phone: Comment on above: Expected: 09/20/2023 (Approximate), Expires: 09/20/2024 Start: 02-03-2023 Screening for malign ant neoplasm of breast Mammogram [facility] Start: 1979 Screening for malign ant neoplasm of colon [facility] CBC W Auto Different ial panel - Blood CBC and differential Lab Routine Well woman exam with routine gynecological exam Ordered: 11/18/2024 [facility] Comment on above: Ordered: 11/18/2024 Comprehensive metabo lic 2000 panel - Serum or Plasma Comprehensive metabolic panel Lab Routine Well woman exam with routine gynecological exam Ordered: 11/18/2024 [facility] Comment on above: Ordered: 11/18/2024 DHEA-sulfate DHEA-sulfate Lab Routine Hormone disorder Ordered: 11/18/2024 [facility] Comment on above: Ordered: 11/18/2024 Estradiol Estradiol Lab Ro utine Hormone disorder Ordered: 11/18/2024 [facility] Comment on above: Ordered: 11/18/2024 Estrone Estrone Lab Rout ine Hormone disorder Ordered: 11/18/2024 [facility] Comment on above: Ordered: 11/18/2024 Ferritin [Mass/volum e] in Serum or Plasma Ferritin Lab Routine Hormone disorder Ordered: 11/18/2024 [facility] Comment on above: Ordered: 11/18/2024 Hemoglobin A1c/Hemoglobin.total in Blood [facility] Comment on above: Ordered: 11/18/2024 Hepatic function panel [facility] Hepatitis A virus Ab [Presence] in Serum by Immunoassay [facility] Hepatitis B core ant ibody measurement [facility] Hepatitis B core ant ibody measurement, IgM type [facility] Hepatitis B virus man rface Ab [Presence] in Serum [facility] Progesterone Progesterone Lab Routine Hormone disorder Ordered: 11/18/2024 [facility] Comment on above: Ordered: 11/18/2024 Sex hormone binding globulin Sex hormone binding globulin Lab Routine Hormone disorder Ordered: 11/18/2024 [facility] Comment on above: Ordered: 11/18/2024 T3, reverse T3, reverse Lab Routine Hormone disorder Ordered: 11/18/2024 [facility] Comment on above: Ordered: 11/18/2024 TESTOSTERONE, FREE TESTOSTERONE, FREE Lab Routine Hormone disorder Ordered: 11/18/2024 [facility] Comment on above: Ordered: 11/18/2024 Testosterone, free, total Testos terone, free, total Lab Routine Hormone disorder Ordered: 11/18/2024 [facility] Comment on above: Ordered: 11/18/2024 THIN PREP TIS PAP AN D HR HPV DNA THIN PREP TIS PAP AND HR HPV DNA Pathology and Cytology Routine Well woman exam with routine gynecological exam Ordered: 11/18/2024 [facility] Comment on above: Ordered: 11/18/2024 Thyroid peroxidase antibody Thyroid peroxidase antibody Lab Routine Hormone disorder Ordered: 11/18/2024 [facility] Comment on above: Ordered: 11/18/2024 Thyroxine (T4) free [Mass/volume] in Serum or Plasma T4, free Lab Routine Hormone disorder Ordered: 11/18/2024 [facility] Comment on above: Ordered: 11/18/2024 Triiodothyronine (T3 ) Free [Mass/volume] in Serum or Plasma T3, free Lab Routine Hormone disorder Ordered: 11/18/2024 [facility] Comment on above: Ordered: 11/18/2024 Vitamin D 1,25 dihydroxy Vitamin D 1,25 dihydroxy Lab Routine Hormone disorder Ordered: 11/18/2024 [facility] Comment on above: Ordered: 11/18/2024 [facility] Immunizations Immunization Date Immunization Notes Care Provider Ross bolanos 08-29-2016 tetanus toxoid, redu dangelo diphtheria toxoid, and acellular pertussis vaccine, adsorbed Sejal Donahue DPPatricia Work Phone: [facility] Payers Date Payer Category Payer Self-pay [id number] 2023 Unknown BCBS BCBS xxxxxx [id number] 2023-Present [phone] [id number] [place] [address] [id number] 2023 Blue Cross Blue Shield [id number] 2017 Unknown [id number] 1979 Unknown [id number] [id number] 3 1979 Unknown [id number] 2.16.840.1.497137.3.579.2.59 3 1979 Unknown [id number] 2.16.840.1.790099.3.579.2.12 59 1979 Unknown [id number] 2.16.840.1.212895.3.579.2.12 59 1979 Unknown [id number] 2.16.840.1.384138.3.579.2.12 59 1979 Unknown [id number] 2.16.840.1.735338.3.579.2.12 59 1979 Unknown [id number] 2.16.840.1.902261.3.579.2.12 59 1979 Unknown [id number] 2.16.840.1.544694.3.579.2.12 59 1979 Unknown [id number] 2.16.840.1.118964.3.579.2.12 59 1979 Unknown [id number] 2.16.840.1.211637.3.579.2.12 59 1979 Unknown [id number] 2.16.840.1.053752.3.579.2.12 59 1979 Unknown [id number] 2.16.840.1.323003.3.579.2.12 59 1979 Unknown [id number] 2.16.840.1.105562.3.579.2.12 59 1979 Unknown [id number] 2.16.840.1.944088.3.579.2.12 59 1979 Unknown [id number] 2.16.840.1.080455.3.579.2.12 59 1979 Unknown [id number] 2.16.840.1.880223.3.579.2.12 59 1959 Unknown [id number] Unknown [facility] [id number] Unknown [id number] [id number] 1 Social History Date Type Detail Facility Start: 08-22-2023 Tobacco smoking status [facility] Never smoked tobacco [facility] Start: 08-22-2023 Tobacco use and exposure Smokeless tobacco non-user [facility] Start: 09-18-2023 End: 11-18-2024 Alcohol intake Ex-drinker (finding) [facility] Start: [...] [facility] Start: 09-13-2023 Alcohol Comment Caffeine intake : 2-3 cups per day coffee [facility] Start: 1980 Sex Assigned At Not on file [facility] Start: 10-26-2022 Gender identity Identifies as female gender (finding) [facility] Start: 03-23-2020 Tobacco smoking status [facility] Ex-smoker (finding) [facility] Start: 1980 Sex Assigned At Female [facility] Medical Equipment Procedure Code Equipment Code Equipment Origin al Text Equipment Identifier Dates Ankle arthroscopy SUTURE ANCHOR FDA Star t: 07-20-2018 Ankle arthroscopy SUTURE ANCHOR FDA Star t: 07-20-2018 Clinical Notes 09-18-2023 to 11-18-2024 HOLLEY Velasquez - 11/18/2024 11:00 AM Rea Burk MA - 11/15/2024 10:00 AM Danie Sims - 11/15/2024 10:00 AM Sabrina Alfred NP - 11/11/2024 3:00 PM EDT Note Date & Type Note Facility 11-18-2024 History of Presen t illness Narrative Reason for Appointment: Patient ID: Ailyn Harley is a 44 y.o. female who presents for Well Women Visit Patient presents today for Annual Exam. MEDICATIONS Current Outpatient Medications Medication Instructions albuterol HFA (Ventolin HFA) 90 mcg/act inhaler 2 puffs, Inhalation, Every 4 hours PRN albuterol 2.5 mg, Nebulization, Every 6 hours PRN cholecalciferol (VITAMIN D-3) 1,000 Units, Daily Cyanocobalamin (VITAMIN B-12 PO) Take by mouth Magnesium 250 MG capsule Take by mouth Multiple Vitamin (multivitamin) tablet 1 tablet, Oral, Daily polyethylene glycol, PEG, 3350 (Glycolax) 17 GM/SCOOP powder Take by mouth vitamin C 1,500 mg, Daily ALLERGIES Allergies Allergen Reactions Cefazolin Unknown Ibuprofen Unknown Other STEROIDS PROBLEMS Active Ambulatory Problems Diagnosis Date Noted Anxiety 08/22/2023 Chronic cough 08/22/2023 Chronic laryngitis 08/22/2023 Chronic rhinosinusitis 08/22/2023 Derangement of unspecified medial meniscus due to old tear or injury, left knee 08/22/2023 Diverticulitis 08/22/2023 Diverticulosis of large intestine 08/22/2023 Episodic tension-type headache, not intractable 08/22/2023 History of hysterectomy 08/22/2023 Laryngopharyngeal reflux 08/22/2023 Mild intermittent asthma 08/22/2023 Other chronic pain 08/22/2023 Seasonal allergic rhinitis 08/22/2023 Stiffness of left ankle joint 08/22/2023 Resolved Ambulatory Problems Diagnosis Date Noted No Resolved Ambulatory Problems Past Medical History: Diagnosis Date Allergies Asthma Ovarian cyst HISTORY PAST MEDICAL HISTORY SOCIAL HISTORY Past Medical History: Diagnosis Date Allergies Asthma Diverticulitis 03/2017 typically every 2 years Ovarian cyst Social History Tobacco Use Smoking status: Never Smokeless tobacco: Never Substance Use Topics Alcohol use: Not Currently Comment: Caffeine intake : 2-3 cups per day coffee Drug use: Never FAMILY HISTORY Family History Problem Relation Name Age of Onset Cancer Mother Diverticulitis Mother Kidney cancer Father Heart failure Father Stroke Father Kidney cancer Paternal Grandmother Pancreatic cancer Paternal Grandmother SURGICAL HISTORY Past Surgical History: Procedure Laterality Date ANKLE ARTHROPLASTY Right 2021 ANKLE ARTHROPLASTY Right 2019 ANKLE SURGERY Right 02/2022 Ankle tendon repair ANKLE SURGERY Left 07/2018 ankle arthroscopy and ligament repair of left foot COLONOSCOPY 2015 Diverticulosis no polyps DILATION AND CURETTAGE OF UTERUS 2003 TONSILLECTOMY 1994 TOTAL VAGINAL HYSTERECTOMY 2013 REVIEW OF SYSTEMS Review of Systems: Review of Systems Constitutional: Negative. HENT: Negative. Eyes: Negative. Respiratory: Negative. Cardiovascular: Negative. Gastrointestinal: Negative. Genitourinary: Negative. Musculoskeletal: Negative. Skin: Negative. Neurological: Negative. All other systems reviewed and are negative. Hematological: Negative. Endocrine: Negative. Allergic/Immunologic: Negative. OBJECTIVE Objective: Physical Exam Constitutional: Appearance: Normal appearance. She is well-developed. Genitourinary: Vulva normal. Right Adnexa: not tender and no mass present. Left Adnexa: not tender and no mass present. No cervical discharge. Breasts: Breasts are soft. Right: Normal. Left: Normal. HENT: Head: Normocephalic. Nose: Nose normal. Mouth/Throat: Mouth: Mucous membranes are moist. Cardiovascular: Rate and Rhythm: Normal rate and regular rhythm. Pulmonary: Effort: Pulmonary effort is normal. Breath sounds: Normal breath sounds. Abdominal: General: Bowel sounds are normal. There is no distension. Palpations: Abdomen is soft. Tenderness: There is no abdominal tenderness. There is no guarding or rebound. Musculoskeletal: General: No swelling. Normal range of motion. Cervical back: Normal range of motion. Right lower leg: No edema. Left lower leg: No edema. Neurological: General: No focal deficit present. Mental Status: She is alert and oriented to person, place, and time. Skin: General: Skin is warm and dry. Psychiatric: Mood and Affect: Mood normal. Behavior: Behavior normal. Vitals and nursing note reviewed. Exam conducted with a water gas operator present. Vitals: Estimated body mass index is 40.77 kg/m as calculated from the following: Height as of 11/15/24: 5' 5 . Weight as of this encounter: 245 lb. BP: 120/86 No LMP recorded. Patient has had a hysterectomy. ASSESSMENT & PLAN ICD-10-CM 1. Well woman exam with routine gynecological exam Z01.419 THIN PREP TIS PAP AND HR HPV DNA CANCELED: POCT urinalysis dipstick manually resulted 2. Encounter for screening mammogram for malignant neoplasm of breast Z12.31 Bilateral screening mammogram Bilateral screening mammogram Annual Exam: Patient presents today for an annual exam. Pap was obtained without difficulty. Patient complains off hot flashes and difficulty losing weight. Buderer hormone packet given to pt. Patient will also start taking metformin. We will follow up in one month and discuss adipex to help with weight loss, wellness orders given as well Orders Placed This Encounter Procedures Bilateral screening mammogram Follow Up: Patient is to return in one year for annual unless needed otherwise. Documented by Ria Rodriguez MA on behalf of: HOLLEY Velasquez documented in this encounter [facility] 11-15-2024 History of Presen t illness Narrative Associated Order(s): L Inj/Asp: R knee Post-Procedure Diagnose(s): Right knee pain, unspecified chronicity L Inj/Asp: R knee on 11/15/2024 1:46 PM Indications: pain Details: 22 G needle Medications: 1 mL betamethasone acetate-betamethasone sodium phosphate 6 (3-3) MG/ML Images from the original note were not included. Ailyn Harley is a 44 y.o. female presents with chief complaint of right knee pain. HPI: Ailyn is a 44-year-old white female seen here today for evaluation of right knee pain and difficulty. This has been going on for two months, but was made worse about a week and a half ago when she was in [place] for her son's wedding and did hike the [place]. She has taken Tylenol, has tried ice, a copper type brace, Voltaren gel. She states that squats actually make it feel better. She does have a history of diverticulitis and states that any steroidal or nonsteroidal anti-inflammatory do cause this to flare. SUBJECTIVE: MEDICATIONS: Current Outpatient Medications Medication Instructions albuterol HFA (Ventolin HFA) 90 mcg/act inhaler 2 puffs, Inhalation, Every 4 hours PRN albuterol 2.5 mg, Nebulization, Every 6 hours PRN azithromycin (Zithromax) 250 MG tablet Take 2 tablets (500mg) by mouth on day one, then take 1 tablet (250mg) by mouth daily on days 2-5 cholecalciferol (VITAMIN D-3) 1,000 Units, Daily Cyanocobalamin (VITAMIN B-12 PO) Take by mouth Magnesium 250 MG capsule Take by mouth polyethylene glycol, PEG, 3350 (Glycolax) 17 GM/SCOOP powder Take by mouth vitamin C 1,500 mg, Daily ALLERGIES: Allergies Allergen Reactions Cefazolin Unknown Ibuprofen Unknown Other STEROIDS SURGICAL HISTORY: Past Surgical History: Procedure Laterality Date ANKLE ARTHROPLASTY Right 2021 ANKLE ARTHROPLASTY Right 2019 ANKLE SURGERY Right 02/2022 Ankle tendon repair ANKLE SURGERY Left 07/2018 ankle arthroscopy and ligament repair of left foot COLONOSCOPY 2014 Diverticulosis no polyps DILATION AND CURETTAGE OF UTERUS 2003 TONSILLECTOMY 1994 TOTAL VAGINAL HYSTERECTOMY 2013 FAMILY HISTORY: Family History Problem Relation Name Age of Onset Cancer Mother Diverticulitis Mother Kidney cancer Father Heart failure Father Stroke Father Kidney cancer Paternal Grandmother Pancreatic cancer Paternal Grandmother SOCIAL HISTORY: Social History Tobacco Use Smoking status: Never Smokeless tobacco: Never Substance Use Topics Alcohol use: Not Currently Comment: Caffeine intake : 2-3 cups per day coffee Drug use: Never Depression: Not at risk (09/14/2023) PHQ-2 PHQ-2 Score: 0 REVIEW OF SYMPTOMS: The review of systems, history and current medications list are all reviewed today. OBJECTIVE: Visit Vitals Ht 5' 5 Wt 245 lb BMI 40.77 kg/m OB Status Hysterectomy Smoking Status Never BSA 2.26 m Physical Exam Her orthopedic exam does reveal morbid obesity with a body mass index of 41. She does have recurvatum about the knees bilaterally. A little bit of a patellar grind on the right. She does have tenderness mainly about the medial compartment with some pain upon medial Junie testing. No click. Varus and valgus stress testing is stable. Mervat is negative. The calf and thigh are supple. Examination of the contralateral left knee reveals arc of motion without difficulty. Varus and valgus stress testing is stable. Mervat is negative. Medial and lateral Junie testing is negative. Hips internal and external rotation is on the order of 40 degrees of each and without pain. She has no trochanteric tenderness bilaterally. Examination of the x-ray AP bilateral weight bearing, bilateral sunrise done here today total of four views coupled with x-rays previously does show some medial squaring of the medial femoral condyle coincident with some medial compartment osteoarthritis. She does have some lateral maltracking of the patellae bilaterally. No evidence of fracture or other osseous abnormality. ASSESSMENT AND PLAN: Assessment/Plan Right knee osteoarthritis with patellofemoral pain syndrome, pain in general, morbid obesity due to excessive calories. The findings are discussed. We did outline that we would recommend treating the osteoarthritic component first. She will continue the Voltaren gel. We will avoid the medicines as described. We did discuss corticosteroid injection. She does opt for that here today. She is injected with 1 cc of Betamethasone and 3 cc of 1% Lidocaine plain (6 mg of Betamethasone with 3 ml of 1% Lidocaine plain) per the office protocol under sterile technique here today. We did give her information on arch support. She does deal with some foot and ankle issues otherwise. We discussed activity modification with regard to her workout as well as she does apparently dance frequently. We did outline weight loss. She may want to partner with primary care on that. We did discuss formal physical therapy of which she does decline. She is given some exercises out of the education module. All of her questions are otherwise answered here today. She is discharged in stable condition. We will see her in one month for recheck and review. Follow up letter sent to Dr. Kebede. Cosigned by Darcy Nieto DO at 11/18/2024 7:41 AM EDT documented in this encounter [facility] 11-11-2024 History of Presen t illness Narrative Images from the original note were not included. Ailyn Harley is a 44 y.o. female presents with chief complaint of Knee Pain HPI: HPI History of Present Illness The patient presents for evaluation of right knee pain. She has been experiencing persistent right knee pain for the past 2 months, which is exacerbated by movement, particularly slight flexion of the knee. The pain is described as sharp and twinge-like, with no known precipitating injury. Her ability to perform squats, a regular part of her exercise routine, has been compromised due to the pain. A recent hiking trip on 11/06/2024 and 11/07/2024 resulted in significant swelling and heat in the affected knee, prompting her to seek medical attention. She reports that the pain was so severe during the inflammation that she was unable to use the knee at all. She also notes a cracking sound when ascending stairs. She has been using a copper brace for support, especially during travel, and takes Tylenol for pain management. She has found relief from inflammation through the use of ankle magnets, which she started using after her last cortisone injection. She also applies oil for muscle relaxation. She has previously used Biofreeze and Voltaren cream for her ankles post-surgery but has not tried these treatments for her current knee pain. She continues to perform physical therapy exercises for her ankles, which are also beneficial for her knees. She is unable to take oral steroids or Motrin. She has a history of tendon tear in her ankle, which she describes as feeling similar to her current knee pain. ALLERGIES The patient can not take ORAL STEROIDS and MOTRIN. The patient has had an allergic reaction to IBUPROFEN. MEDICATIONS Current: Tylenol, Voltaren gel SUBJECTIVE: MEDICATIONS: Current Outpatient Medications Medication Instructions albuterol HFA (Ventolin HFA) 90 mcg/act inhaler 2 puffs, Inhalation, Every 4 hours PRN albuterol 2.5 mg, Nebulization, Every 6 hours PRN azithromycin (Zithromax) 250 MG tablet Take 2 tablets (500mg) by mouth on day one, then take 1 tablet (250mg) by mouth daily on days 2-5 cholecalciferol (VITAMIN D-3) 1,000 Units, Daily Cyanocobalamin (VITAMIN B-12 PO) Take by mouth Magnesium 250 MG capsule Take by mouth polyethylene glycol, PEG, 3350 (Glycolax) 17 GM/SCOOP powder Take by mouth vitamin C 1,500 mg, Daily I have reviewed and reconciled the history and medication list with the patient today. REVIEW OF SYMPTOMS: Review of Systems Constitutional: Negative. HENT: Negative. Respiratory: Negative for cough, shortness of breath and wheezing. Cardiovascular: Negative for chest pain. Gastrointestinal: Negative for abdominal pain. Genitourinary: Negative. Musculoskeletal: Positive for arthralgias. Skin: Negative. Neurological: Negative. OBJECTIVE: Visit Vitals BP 120/74 Pulse 72 Resp 18 Ht 5' 5 Wt 245 lb SpO2 98% BMI 40.77 kg/m OB Status Hysterectomy Smoking Status Never BSA 2.26 m Physical Exam Vitals and nursing note reviewed. Constitutional: Appearance: Normal appearance. HENT: Head: Normocephalic and atraumatic. Right Ear: Tympanic membrane normal. Left Ear: Tympanic membrane normal. Nose: Nose normal. Eyes: Extraocular Movements: Extraocular movements intact. Conjunctiva/sclera: Conjunctivae normal. Pupils: Pupils are equal, round, and reactive to light. Cardiovascular: Rate and Rhythm: Normal rate and regular rhythm. Heart sounds: Normal heart sounds. Pulmonary: Effort: Pulmonary effort is normal. Breath sounds: Normal breath sounds. Musculoskeletal: Cervical back: Normal range of motion and neck supple. Skin: General: Skin is warm and dry. Capillary Refill: Capillary refill takes less than 2 seconds. Neurological: Mental Status: She is alert and oriented to person, place, and time. ASSESSMENT AND PLAN: Assessment/Plan Diagnoses and all orders for this visit: Acute pain of right knee - XR knee 4+ views right; Future Assessment & Plan 1. Right knee pain. The right knee pain may be due to overuse, particularly from recent hiking activities. There is no current warmth or redness, reducing the likelihood of a clot. An x-ray of the right knee will be ordered to further investigate the cause of the pain. She is advised to apply Voltaren gel topically for pain relief. If the pain persists, a referral to an personnel security specialist will be considered. documented in this encounter [facility] 10-21-2024 History of Presen t illness Narrative HPI: Ailyn Harley presents today for evaluation of bilateral ankle cramping pain. Patient states that she has had pain in the ankle for months. She describes the pain as cramping, muscle spasms which has increased with time. Patient relates a positive history of trauma to the area. Patient states that around [place] she was working 16-18 hour days with [...] Peroneal tendinitis left Sinus tarsitis bilateral Plan: STJ Arthritis: Discussed with the patient a corticosteroid injection. [...] help with her foot drop symptoms. We discussed additional treatment such as AFO braces, stj arthroscopy, NSAID medications and surgery- arthrodesis along with the risks and benefits of each. Patient will think about her additional treatments based on her response to the current injections. documented in this encounter [facility] 10-15-2024 History of Presen t illness Narrative Images from the original note were not included. Ailyn Harley is a 44 y.o. female presents with chief complaint of left foot pain HPI: Patient here for left foot pain that began a few weekends ago, states she was dancing and she heard it pop, and is rating the pain a 9/10 without shoes SUBJECTIVE: MEDICATIONS: Current Outpatient Medications Medication Instructions albuterol HFA (Ventolin HFA) 90 mcg/act inhaler 2 puffs, Inhalation, Every 4 hours PRN albuterol 2.5 mg, Nebulization, Every 6 hours PRN azithromycin (Zithromax) 250 MG tablet Take 2 tablets (500mg) by mouth on day one, then take 1 tablet (250mg) by mouth daily on days 2-5 cholecalciferol (VITAMIN D-3) 1,000 Units, Daily Cyanocobalamin (VITAMIN B-12 PO) Take by mouth Magnesium 250 MG capsule Take by mouth polyethylene glycol, PEG, 3350 (Glycolax) 17 GM/SCOOP powder Take by mouth vitamin C 1,500 mg, Daily I have reviewed and reconciled the history and medication list with the patient today. REVIEW OF SYMPTOMS: Review of Systems Constitutional: Negative for chills and fatigue. HENT: Negative for ear discharge, ear pain, rhinorrhea and sore throat. Eyes: Negative for pain and redness. Respiratory: Negative for cough and chest tightness. Cardiovascular: Negative for chest pain and palpitations. Gastrointestinal: Negative for abdominal distention and abdominal pain. Genitourinary: Negative for difficulty urinating and frequency. Musculoskeletal: Positive for gait problem and joint swelling (left ankle swelling). Negative for arthralgias. Skin: Negative. Neurological: Negative for dizziness and numbness. Endocrine: Negative. Allergic/Immunologic: Negative. OBJECTIVE: Visit Vitals BP 124/72 Pulse 76 Resp 18 Ht 5' 5 Wt 246 lb SpO2 99% BMI 40.94 kg/m OB Status Hysterectomy Smoking Status Never BSA 2.27 m Physical Exam Vitals reviewed. Cardiovascular: Rate and Rhythm: Normal rate and regular rhythm. Pulses: Normal pulses. Heart sounds: Normal heart sounds. Pulmonary: Effort: Pulmonary effort is normal. Breath sounds: Normal breath sounds. Musculoskeletal: Left ankle: Swelling present. Decreased range of motion. Skin: General: Skin is warm and dry. Neurological: General: No focal deficit present. Mental Status: She is oriented to person, place, and time. ASSESSMENT AND PLAN: Assessment/Plan Diagnoses and all orders for this visit: Left foot pain-rest, await results - XR foot 3+ views left; Future Morbid (severe) obesity due to excess calories ([facility]/HCC) Body mass index (BMI) 40.0-44.9, adult (CMS/HCC) documented in this encounter [facility] 09-30-2024 Telephone encounter Note Entered message in her daughters chart. I will place the referral once the insurance information is verified. [facility] Work Phone: 09-30-2024 Miscellaneous Notes Entered message in her daughters chart. I will place the referral once the insurance information is verified. Pt is seeking new behavioral provider for her daughter Eboni Harley 05/30/09 documented in this encounter [facility] 09-27-2024 Telephone encounter Note Pt is seeking new behavioral provider for her daughter Eboni Harley 05/30/09 [facility] 06-12-2024 History of Presen t illness Narrative Images from the original note were not included. Ailyn Harley is a 44 y.o. female presents with chief complaint of Nasal Congestion HPI: Upper Respiratory Infection Patient complains of symptoms of a URI. Symptoms include congestion and sore throat. Onset of symptoms was 4 days ago, and has been gradually worsening since that time. Treatment to date: none. Patient reports right foot pain especially right 5th toe Patient reports she injured her right toe a couple months ago and it still hurts. SUBJECTIVE: MEDICATIONS: ALLERGIES Current Outpatient Medications Medication Instructions albuterol HFA (Ventolin HFA) 90 mcg/act inhaler 2 puffs, Inhalation, Every 4 hours PRN albuterol 2.5 mg, Nebulization, Every 6 hours PRN cholecalciferol (VITAMIN D-3) 1,000 Units, Daily Cyanocobalamin (VITAMIN B-12 PO) Take by mouth polyethylene glycol, PEG, 3350 (Glycolax) 17 GM/SCOOP powder Take by mouth vitamin C 1,500 mg, Daily Allergies Allergen Reactions Cefazolin Unknown Ibuprofen Unknown Other STEROIDS PAST MEDICAL HISTORY: SOCIAL HISTORY SURGICAL HISTORY: Past Medical History: Diagnosis Date Allergies Asthma ([facility]) Diverticulitis 03/2017 typically every 2 years Ovarian cyst Social History Tobacco Use Smoking status: Never Smokeless tobacco: Never Substance Use Topics Alcohol use: Not Currently Comment: Caffeine intake : 2-3 cups per day coffee Drug use: Never Past Surgical History: Procedure Laterality Date ANKLE ARTHROPLASTY Right 2021 ANKLE ARTHROPLASTY Right 2019 ANKLE SURGERY Right 02/2022 Ankle tendon repair ANKLE SURGERY Left 07/2018 ankle arthroscopy and ligament repair of left foot COLONOSCOPY 2015 Diverticulosis no polyps DILATION AND CURETTAGE OF UTERUS 2003 TONSILLECTOMY 1994 TOTAL VAGINAL HYSTERECTOMY 2013 REVIEW OF SYMPTOMS: Review of Systems HENT: Positive for congestion, ear pain, postnasal drip, rhinorrhea, sinus pressure and sinus pain. Eyes: Negative. Respiratory: Negative. Cardiovascular: Negative. Gastrointestinal: Negative. Genitourinary: Negative. Musculoskeletal: Negative. Skin: Negative. Neurological: Positive for headaches. Psychiatric/Behavioral: Negative. All other systems reviewed and are negative. Hematological: Negative. Endocrine: Negative. Allergic/Immunologic: Negative. OBJECTIVE: Vitals: 06/12/24 1231 BP: 124/76 Pulse: 68 Resp: 18 SpO2: 98% Physical Exam Vitals reviewed. HENT: Right Ear: Tympanic membrane normal. Left Ear: Tympanic membrane is injected. Nose: Congestion and rhinorrhea present. Right Sinus: Maxillary sinus tenderness and frontal sinus tenderness present. Left Sinus: Maxillary sinus tenderness and frontal sinus tenderness present. Cardiovascular: Rate and Rhythm: Normal rate and regular rhythm. Pulses: Normal pulses. Heart sounds: Normal heart sounds. Pulmonary: Effort: Pulmonary effort is normal. Breath sounds: Normal breath sounds. Abdominal: General: Abdomen is flat. Bowel sounds are normal. Palpations: Abdomen is soft. Musculoskeletal: Right foot: Decreased range of motion (right 5th metarsal). Tenderness present. Skin: General: Skin is warm and dry. Neurological: General: No focal deficit present. Mental Status: She is oriented to person, place, and time. ASSESSMENT AND PLAN: Assessment/Plan Diagnoses and all orders for this visit: Right foot pain - XR foot 1 or 2 views right; Future Await results Acute left otitis media - azithromycin (Zithromax) 250 MG tablet; Take 2 tablets (500mg) by mouth on day one, then take 1 tablet (250mg) by mouth daily on days 2-5 Take medications as prescribed. No follow-ups on file. documented in this encounter [facility] 04-25-2024 Evaluation note Authored April 25, 2024 9:48am 43-year-old female referred to the GI clinic to establish care. No GI complaints. She had a history of diverticulitis years ago which was treated with antibiotics. Colonoscopy in 2019 showed sigmoid diverticulosis otherwise it was unremarkable. +fatty liver on imaging few months ago. Will check LFTs Patient has obesity which is a risk factor associated with MASLD. Patient does not have secondary causes of hepatic fat accumulation such as significant alcohol consumption, viral hepatitis, steatogenic medications (e.g., tamoxifen, amiodarone, methotrexate), or lipodystrophy. Pt was counseled about weight loss Will arrange for fibroscan and check ELF Will check viral hepatitis serologies [facility] Work Phone: 1(794) 500-101606-12-2024 Evaluation note* Author Robson Eastman [facility] Authored April 25, 2024 9:48am 43-year-old female referred to the GI clinic to establish care. No GI complaints. She had a history of diverticulitis years ago which was treated with antibiotics. Colonoscopy in 2019 showed sigmoid diverticulosis otherwise it was unremarkable. +fatty liver on imaging few months ago. Will check LFTs Patient has obesity which is a risk factor associated with MASLD. Patient does not have secondary causes of hepatic fat accumulation such as significant alcohol consumption, viral hepatitis, steatogenic medications (e.g., tamoxifen, amiodarone, methotrexate), or lipodystrophy. Pt was counseled about weight loss Will arrange for fibroscan and check ELF Will check viral hepatitis serologies [facility] Work Phone: [phone]) 730-256002-05-2024 History of Present illness Narrative* Sejal Donahue DPM - 09/18/2023 4:00 PM EST Duplicate * Sejal Donahue DPM - 09/18/2023 4:00 PM EST HPI: Ailyn Harley presents today for evaluation of bilateral ankle cramping pain. Patient states thatshe has had pain in the ankle for [...] ankle. Patient does not have pain with rangeof motion to the left ankle but does [...] treatment options available for this condition. I wouldlike to order an EMG to determine the [...] removed and then 1cc of Kenalog 40 wasinjected into the joint. Patient tolerated the injection well. Patient instructed on home care. Patient can continue with use of the ASO braces immobilization to help with her foot drop symptoms. We will follow up once the EMG has been completed and to discuss further treatment options. 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- Primary Common peroneal neuropathy of left lower extremity Neuropathy Mononeuritis of unspecified site Sinus tarsitis of left foot Sinus tarsitis of right foot Peroneal tendinitis of left lower extremity Pain in both feet documented in this encounter [facility]* Diagnosis Right foot pain- Primary Pain in soft tissues of limb Acute left otitis media documented in this encounter [facility]* Diagnosis Left foot pain- Primary Pain in soft tissues of limb Morbid (severe) obesity due to excess calories ([facility]) Body mass index (BMI) 40.0-44.9, adult ([facility]) documented in this encounter [facility]* Diagnosis Sinus tarsitis of left foot- Primary Sinus tarsitis of right foot Pain in both feet documented in this encounter [facility]* Diagnosis Acute pain of right knee- Primary documented in this encounter [facility]* Diagnosis Right knee pain, unspecified chronicity- Primary Acute pain of right knee Primary osteoarthritis of right knee Morbid obesity (CMS/HCC) Morbid obesity Patellofemoral disorder of right knee documented in this encounter [facility] Healthcare[facility]* Diagnosis Well woman exam with routine gynecological exam Routine gynecological examination Encounter for screening mammogram for malignant neoplasm of breast Hormone disorder Unspecified endocrine disorder documented in this encounter [facility] Summary Purpose Family History Relationship Condition Age at Onset Recorded Date/T jose mother Diverticulitis Unknown Malignant neoplasm of skin Unknown father Malignant neoplasm of throat Unknown Heart disease Unknown Malignant neoplasm of kidney Unknown Advance Directives Advance Directive Response Recorded Date/ Time Advance Directives No July 18, 2018 4:54pm Reason for Referral Specialty Diagnoses / Procedures Referred By Contac t Referred To Contact Diagnoses 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 Procedures EMG 2 Extremities Sejal Donahue, DPM [address] [facility] [address] [place] [address] Referral ID Status Reason Start Date Expiration Date V isits Requested Visits Authorized [id number] Incomplete 09/20/2023 03/18/2024 1 1 Chief Complaint and Reason for Visit Chief Complaint abdominal pain Reason for Visit Hepatic steatosis Chief Complaint abdominal pain Fatty Liver Reason for Visit Hepatic steatosis Additional Source Comments INFORMATION SOURCE (unrecogn ized section and content) DATE CREATED AUTHOR 02/06/2018 [facility] DATE CREATED AUTHOR AUTHOR'S ORGANIZ ATION 10/25/2021 [facility] pital DATE CREATED AUTHOR AUTHOR'S ORGANIZ ATION 02/04/2022 [facility] dical Specialist DATE CREATED AUTHOR AUTHOR'S ORGANIZ ATION 08/13/2024 [facility] [address] [facility] DATE CREATED AUTHOR AUTHOR'S ORGANIZ ATION 11/17/2024 [facility] dical Specialists EPIC Reason for Visit (unrecogniz ed section and content) Reason Comments Ankle Pain Reason Comments Nasal Congestion Reason Comments left foot pain Reason Comments Knee Pain Reason Comments Pain Specialty Diagnoses / Procedures Referred By Adonis t Referred To Contact Orthopaedic Surgery Diagnoses Acute pain of right knee Law Alfred, [employer] MANAGER [address] [place] [address] Phone: tel: fax: Kyrie Bennett, DO [address] [place] [address] Phone: tel: fax: Referral ID Status Reason Start Date Expiration Date V isits Requested Visits Authorized [id number] Closed Specialty Services Required 11/12/2024 05/11/2025 1 1 Reason Comments Well Women Visit Care Teams (unrecognized sec tion and content) Resolution Analyst Relationship Specialty Start Date End Date Gladys Kebede MD [address] [place] [address] PCP - [employer] 06/14/22 Gladys Kebede MD [address] [place] [address] PCP - General Family Medicine 12/20/22 Team Status: Active Member Role Status Dates Gladys Kebede MD Primary Care Provide r Active Team Status: Inactive Member Role Status Dates Gladys Kebede MD Primary Care Provider Active Start: April 142023 End: April 25, 2024 Robson Eastman MD Attending Provider Active Start: April 25, 2024 End: April 25, 2024 Team Status: Inactive Member Role Status Dates Gladys Kebede MD Primary Care Provider Active Start: April 152023 End: May 07, 2024 Robson Eastman MD Attending Provider Active Start: May 07, 2024 End: May 07, 2024 Resolution Analyst Relationship Specialty Start Date End Date Gladys Kebede MD [address] [place] [address] PCP - General Family Medicine 12/20/22 Payton Garibay NP [address] [place] [address] PCP - [employer] 04/14/24 Resolution Analyst Relationship Specialty Start Date End Date Gladys Kebede MD [address] [place] [address] PCP - General Family Medicine 12/20/22 Payton Garibay NP [address] [place] [address] [facility] Resolution Analyst Relationship Specialty Start Date End Date Gladys Kebede MD [address] [place] [address] PCP - General Family Medicine 12/20/22 Resolution Analyst Relationship Specialty Start Date End Date Gladys Kebede MD [address] [place] [address] PCP - General Family Medicine 12/20/22 Resolution Analyst Relationship Specialty Start Date End Date Gladys Kebede MD [address] [place] [address] PCP - General Family Medicine 12/20/22 Resolution Analyst Relationship Specialty Start Date End Date Gladys Kebede MD [address] [place] [address] PCP - General Family Medicine 12/20/22 Resolution Analyst Relationship Specialty Start Date End Date Gladys Kebede MD [address] [place] [address] PCP - General Family Medicine 12/20/22 Resolution Analyst Relationship Specialty Start Date End Date Gladys Kebede MD [address] [place] [address] PCP - General Family Medicine 12/20/22 Resolution Analyst Relationship Specialty Start Date End Date Gladys Kebede MD [address] [place] [address] PCP - General Family Medicine 12/20/22 Resolution Analyst Relationship Specialty Start Date End Date Gladys Kebede MD [address] [place] [address] PCP - General Family Medicine 12/20/22 Goals (unrecognized section and content) Goals may be documented in a n alternate sectionGoals may be documented in an alternate section FOR RECORDS PERTAINING TO PATIENTS WHO ARE [...] BE BASED ON THE PRIMARY CLINICAL RECORDS. [facility]. provides no warranty or guarantee of the accuracy or completeness of information in this document.
== END 2024-11-18 21:20 | disposition home or self-care (01) ==
LOC: LAB 21:19
PROVIDERS: PCP Family Medicine; Visit Provider Physician Assistant
DX: Z01.419 Encounter for gynecological examination (general) (routine) without abnormal findings (principal)
CPT/HCPCS: 87624; 88175

== ENCOUNTER 2025-01-12 07:59 | Emergency (ER) | payer BC, SELFPAY ==
[2025-01-12 08:02] VITALS: BP 124/80; PULSE 81; O2SAT 98; BMI 39.1
--- OUTSIDE RECORDS SUMMARY | 2025-01-12 08:06 | XMS_ITS | CCD ---
Author Organization [facility] Care Team Providers Care Traverse Rod Assembler Name Role Phone David Ayala Unavailable Unavailable Weidenbec, David Bowlesgfried Unavailable Unavailable Mike Lara Unavailable Unavailable Yandy, Gladys Hawthorne Unavailable Unavailable Weidenbecher, David Simons Unavailable Unavailable Yandy, Gladys Hawthorne [...] [place], DR JARED Tomas Admitting Unavailabl e Strawser Janice Consulting Unavailable Gladys Kebede MD Unavailable [phone] Gladys Kebede MD Primary Care Provider MD Gladys Morgan Primary Care Pr ovider MD Robson Eastman Attending Provider Payton Garibay NP Unavailable Gladys Morgan Primary Care Un available Robsno Eastman Attending Unavailable Robson Eastman Admitting Unavailable PAYTON GARIBAY Attending Unavailab PAYTON Chiu Referring Unavailab SEJAL Lóen Attending Unavailable LAW ALFRED Attending Unavailab LAW Yuan Referring Unavailab DARCY [place] Referring Unavailable PAYTON GARIBAY Attending Unavailab PAYTON Chiu Attending Unavailab PAYTON Chiu Attending Unavailab ANALIA Kirby Attending Unavailable PAYTON GARIBAY Referring Unavailab ANALIA Kirby Attending Unavailable DARCY ROSARIO Attending Unavailable LAW ALFRED Referring Unavailab YAA Mayberry Attending Unavailable DARCY ROSARIO Attending Unavailable PAYOTN GARIBAY Attending Unavailab PAYTON Cihu Referring Unavailab le Allergies Allergy Classification Reported Allergen(s) Allergy Type Date of Onset Reaction(s) Facility (1 source) ceFAZolin Drug Allergy 4 [facility] Repository (1 source) Corticosteroids Drug allergy (disorder) [facility] Repository (20 sources) ceFAZolin Drug Allergy 4 Unknown [facility] Healthcare (2 sources) Fish Oils Drug Allergy 4 Unknown [facility] Healthcare (20 sources) Ibuprofen Drug Allergy 4 Unknown [facility] Healthcare (20 sources) Other Propensity to adverse reactions 4 [facility] Healthcare (1 source) ceFAZolin Drug Allergy 4 [facility] Repository (1 source) Ibuprofen Drug Allergy 4 [facility] Medications Current Medications Medication Drug [...] Active ascorbic acid 250 mg oral tablet (20 sources) Vitamin C Ascorbic Acid (vitamin C) [...] 11/18/2024 Discontinued cholecalciferol 0.025 mg oral tablet (20 sources) Vitamin D take 1 tablet by [...] 2 tablet 1 04/01/2024 06/12/2024 Discontinued Magnesium (17 sources) Magnesium 250 MG capsule Take by mouth Active 24 hr metFORMIN hydrochloride 500 mg extended release oral tablet (7 sources) Biguanide Start: End: take 1 tablet by mouth every twenty-four hours at mealtime metFORMIN XR (Glucophage-XR) 500 MG 24 hr tablet Indications: Well woman exam with routine gynecological exam Take 1 tablet (500 mg) by mouth in the evening. Take with meals Do not crush, chew, or split. 30 tablet 11 11/18/2024 12/18/2024 Active Multiple Vitamin (multivitamin) tablet (7 sources) take 1 tablet by mouth once daily Multiple Vitamin (multivitamin) tablet Take 1 tablet by mouth Daily Active [place] (No Known Home Meds) (2 sources) Start: [place] (No Known Home Meds) Active March 20, 2020 12:00am ondansetron 4 mg disintegrating oral tablet (2 sources) Serotonin-3 Receptor Antagonist Start: ondansetron ODT (Zofran-ODT) 4 MG disintegrating tablet DISSOLVE 1 TABLET ON THE TONGUE EVERY 6 HOURS NEEDED FOR NAUSEA AND VOMITING 0 06/13/2023 Active vitamin B12 (20 sources) Vitamin B12 Cyanocobalamin (VITAMIN B-12 PO) [...] March 20, 2020 12:22pm polyethylene glycol 3350 96131 mg powder for oral solution (20 sources) [...] Problem Date Documented Date Episodic/Chronic Anxiety disorders (20 sources) Anxiety; Translations: [Anxiety disorder, unspecified] Onset: 08-22-2023 08-22-2023 Chronic Asthma (20 sources) Mild intermittent asthma; Translations: [Mild intermittent asthma, uncomplicated] Onset: 08-22-2023 08-22-2023 Chronic Diverticulosis and diverticulitis (20 sources) Diverticulitis; Translations: [Diverticulitis of intestine, part unspecified, without perforation or abscess without bleeding] Onset: 08-22-2023 08-22-2023 Chronic E Codes: Struck by; against (1 source) Striking against or struck by other objects, initial encounter; Translations: [STRIKING AGNST/STRUCK OTH OBJ INIT] Onset: 10-25-2021 Episodic Esophageal disorders (20 sources) Laryngopharyngeal reflux; Translations: [Gastro-esophageal reflux disease without esophagitis] Onset: 08-22-2023 08-22-2023 Chronic Headache; including migraine (20 sources) Episodic tension-type headache; Translations: [Episodic tension-type headache, not intractable] Onset: 08-22-2023 08-22-2023 Chronic Joint disorders and dislocations; trauma-related (20 sources) Derangement of medial meniscus due to injury of knee; Translations: [Derangement of unspecified medial meniscus due to old tear or injury, left knee] Onset: 08-22-2023 08-22-2023 Chronic Joint disorders and dislocations; trauma-related (4 sources) Disorder of right patellofemoral joint; Translations: [Patellofemoral disorders, right knee] 11-15-2024 Chronic Osteoarthritis (4 sources) Osteoarthritis of right knee joint; Translations: [...] unspecified] 09-20-2023 Chronic Other nervous system disorders (20 sources) Chronic pain; Translations: [Other chronic pain] [...] Chronic Other nutritional; endocrine; and metabolic disorders (4 sources) Morbid obesity; Translations: [Morbid (severe) obesity due to excess calories] 11-15-2024 Chronic Other screening for suspected conditions (not mental disorders or infectious disease) (2 sources) Patient encounter status; Translations: [Encounter for screening mammogram for malignant neoplasm of breast] 11-18-2024 Episodic Other upper respiratory disease (20 sources) Chronic laryngitis; Translations: [Chronic laryngitis] Onset: 08-22-2023 08-22-2023 Chronic Other upper respiratory disease (20 sources) Seasonal allergic rhinitis; Translations: [Other seasonal allergic rhinitis] Onset: 08-22-2023 08-22-2023 Chronic Other upper respiratory infections (20 sources) Chronic sinusitis, unspecified; Translations: [Chronic rhinitis] [...] Onset: 05-31-2021 Episodic Other lower respiratory disease (20 sources) Chronic cough; Translations: [Chronic cough] Onset: 08-22-2023 08-22-2023 Episodic Other non-traumatic joint disorders (20 sources) Stiffness of left ankle; Translations: [Stiffness [...] Results Test Name Value Interpretation Reference Range Facility IGP,APTIMA HPV,AGE GDLNon AGE GDLN ACOG TESTING Note . [facility] Comment on above: TESTS RESULT FLAG UN ITS REF RANGE LAB Clinician Provided Cytology Information Source.............Vagina No. of containers..01 ThinPrep Vial Age Yoli CALVERT Emilie... 3065 FLAG LEGEND: L-Low Normal,H-High Normal,LL-Alert Low,HH-Alert High <-Panic Low,>-Panic High,A-Abnormal,AA-Critical Abnormal Performed at: 01 =G [address] [place] [address] Su Mike MD, HPV APTIMA Negative Negative [facility] e Comment on above: This nucleic acid am plification test detects fourteen high- risk HPV types (16,18,31,33,35,39,45,51,52,56,58,59,66,68) without differentiation. Performed at: =G - [address] [id number] Web Services Architect: Su Mike MD, Phone: [phone] Performed at: - [address] [id number] Web Services Architect: Su Mike MD, Phone: [phone] IGP, APTIMA HPV, RFX [birth year]18,[address] [facility] Comment on above: TESTS RESULT FLAG UN ITS REF RANGE LAB DIAGNOSIS: 02 NEGATIVE FOR INTRAEPITHELIAL LESION OR MALIGNANCY. THIS SPECIMEN WAS RESCREENED PART OF OUR PRODUCTION SANITIZER PROGRAM. Specimen adequacy: 02 Satisfactory for evaluation. Performed by: 03 Prasad Duarte, Ppa Teacher ([facility]) QC reviewed by: 02 Felicity Amin, Ppa Teacher ([facility]) . 02 Note: Note 02 The Pap smear is a screening test designed to aid in the detection of premalignant and malignant conditions of the uterine cervix. It is not a diagnostic procedure and should not be used as the sole means of detecting cervical cancer. Both false-positive and false-negative reports do occur. Test Methodology: Note 02 This liquid based ThinPrep(R) pap test was screened with the use of an image guided system. HPV Genotype Reflex Note 02 Criteria not met, HPV Genotype not performed. FLAG LEGEND: L-Low Normal,H-High Normal,LL-Alert Low,HH-Alert High <-Panic Low,>-Panic High,A-Abnormal,AA-Critical Abnormal Performed at: 02 [address] [facility] [address] [address] Su Mike MD, 03 KWCYT [facility] [place] [facility] [address] [place] [address] Olivier Charlton MD, SPATULA-ALONE VAGINA [facility] Healthcar e RECURRENT VAGINITIS (HTRX)on 11-19-2024 ATOPOBIUM VAGINAE 0 [facility] ATOPOBIUM VAGINAE Not detected [facility] BVAB 2,3 (BACTERIAL VAGINOSIS ASSOCIATED BACTERIA 2, 3); MOBILUNCUS SPP 0 [facility] Healthcare BVAB 2,3 (BACTERIAL VAGINOSIS ASSOCIATED BACTERIA 2, 3); MOBILUNCUS SPP Not detected [facility] KENDY ALBICANS, PARAPSILOSIS, TROPICALIS 0 [facility] KENDY ALBICANS, PARAPSILOSIS, TROPICALIS Not detected [facility] KENDY GLABRATA 0 [facility] KENDY GLABRATA Not detected [facility] KENDY KRUSEI 0 [facility] KENDY KRUSEI Not detected [facility] CHLAMYDIA TRACHOMATIS 0 [facility] CHLAMYDIA TRACHOMATIS Not detected [facility] GARDNERELLA VAGINALIS 0 [facility] GARDNERELLA VAGINALIS Not detected [facility] MEGASPHAERA (TYPES 1, 2) 0 [facility] MEGASPHAERA (TYPES 1, 2) Not detected [facility] MYCOPLASMA GENITALIUM 0 [facility] MYCOPLASMA GENITALIUM Not detected [facility] Healthcare NEISSERIA GONORRHOEAE 0 [facility] NEISSERIA GONORRHOEAE Not detected [facility] TRICHOMONAS VAGINALIS 0 [facility] Healthcare TRICHOMONAS VAGINALIS Not [facility] Knee - right 1 or [...] evidence of fracture or other osseous abnormality. [facility] Press[facility] No Panel Informationon 11-15 Lali Burk MA 11/18/2024 7:44 AM L Inj/Asp: R knee on 11/15/2024 1:46 PM Indications: pain Details: 22 G needle Medications: 1 mL betamethasone acetate-betamethasone sodium phosphate 6 (3-3) MG/ML [facility] Pressy [facility] XR Knee - right 1 or 2 Views on 11-15-2024 Radiology Study observation (narrative) [facility] XR KNEE 4+ VIEWS RIGHTon XR KNEE [...] report is generated using voice recognition reporting ([employer]). On occasion [employer] erroneously drops words from the report or replaces the spoken word with similar sounding words. Please call with any questions/concerns regarding this report.* Dictated and transcribed 11/12/24/dpd This report has been electronically signed and approved by the interpreting radiologist. Normal Not Available XR FOOT 3+ VIEWS LEFTon XR FOOT 3+ VIEWS LEFT Exam: XR [...] VERY IMPORTANT TO YOUR HEALTH. THE CURRENT [place] [employer] GUIDELINES RECOMMENDS ANNUAL MAMMOGRAPHY BEGINNING AT AGE 39 THIS FACILITY USES A REMINDER SYSTEM TO ENSURE ALL PATIENTS RECEIVE REMINDER NOTIFICATIONS AT THE APPROPRIATE TIME BASED ON THE RECOMMENDATIONS OF THIS EXAM. Report reported and signed by Da Jeff on 02/03/2022 0914 Normal [facility] MRI Ankle w/o Righton 2021 [...] by Rob Barcenas on 11/17/2021 0734 Normal [facility] XR HAND RT MIN 3Von 10-24-19 22 [...] by: JANICE LOPES Date: 2021-10-23 17:06 Normal [facility] Vital Signs Date Time Vital Sign Value Performing Clinician Estelle caldera 12-13-2024 09:53-0400 Body height 165.1 cm Darcy Pocos DO Work Phone: [facility] 12-13-2024 09:53-0400 Body mass index (BMI) [Ratio] 40.77 kg/m2 Darcy Pocos DO Work Phone: [facility] 12-13-2024 09:53-0400 Body weight 111.13 kg Darcy Pocos DO Work Phone: [facility] 11-18-2024 11:09-0400 Body mass index (BMI) [Ratio] 40.77 kg/m2 Yaa BABB Work Phone: [facility] 11-18-2024 11:09-0400 Body weight 111.13 kg Yaa BABB Work Phone: [facility] 11-18-2024 11:09-0400 Diastolic blood pressure 86 mm[Hg] Yaa Boston PA Work Phone: [facility] 11-18-2024 11:09-0400 Systolic blood pressure 120 mm[Hg] Yaa Boston PA Work Phone: [facility] 11-15-2024 10:01-0400 Body height 165.1 cm Darcy Pocos DO Work Phone: [facility] 11-15-2024 10:01-0400 Body mass index (BMI) [Ratio] 40.77 kg/m2 Darcy Pocos DO Work Phone: [facility] 11-15-2024 10:01-0400 Body weight 111.13 kg Darcy Pocos DO Work Phone: [facility] 11-11-2024 14:59-0400 Body height 165.1 cm Law Alfred NP Work Phone: [facility] 11-11-2024 14:59-0400 Body mass index (BMI) [Ratio] 40.77 kg/m2 Law Soriaenburg HELPER DRIVER Work Phone: [facility] 11-11-2024 14:59-0400 Body weight 111.13 kg Law Yangenburg HELPER DRIVER Work Phone: [facility] 11-11-2024 14:59-0400 Diastolic blood pressure 74 mm[Hg] Law Haliliaenburg HELPER DRIVER Work Phone: [facility] 11-11-2024 14:59-0400 Heart rate 72 /min Law Yangenburg HELPER DRIVER Work Phone: [facility] 11-11-2024 14:59-0400 Respiratory rate 18 /min Law Yangenburg HELPER DRIVER Work Phone: [facility] 11-11-2024 14:59-0400 SaO2% (BldA) [Mass fraction] 98 % Law Soriaenburg HELPER DRIVER Work Phone: [facility] 11-11-2024 14:59-0400 Systolic blood pressure 120 mm[Hg] Law Yangenburg HELPER DRIVER Work Phone: [facility] 10-15-2024 15:34-0500 Body height 165.1 cm Payton Garibay HELPER DRIVER Work Phone: [facility] 10-15-2024 15:34-0500 Body mass index (BMI) [Ratio] 40.94 kg/m2 Payton Garibay HELPER DRIVER Work Phone: [facility] 10-15-2024 15:34-0500 Body weight 111.58 kg Payton Garibay HELPER DRIVER Work Phone: [facility] 10-15-2024 15:34-0500 Diastolic blood pressure 72 mm[Hg] Payton Garibay HELPER DRIVER Work Phone: [facility] 10-15-2024 15:34-0500 Heart rate 76 /min Payton Garibay HELPER DRIVER Work Phone: [facility] 10-15-2024 15:34-0500 Respiratory rate 18 /min Payton Garibay HELPER DRIVER Work Phone: [facility] 10-15-2024 15:34-0500 SaO2% (BldA) [Mass fraction] 99 % Payton Garibay HELPER DRIVER Work Phone: [facility] 10-15-2024 15:34-0500 Systolic blood pressure 124 mm[Hg] Payton Garibay HELPER DRIVER Work Phone: [facility] 06-12-2024 12:31-0400 Body height 165.1 cm Payton Garibay HELPER DRIVER Work Phone: [facility] 06-12-2024 12:31-0400 Body mass index (BMI) [Ratio] 40.27 kg/m2 Payton Garibay HELPER DRIVER Work Phone: [facility] 06-12-2024 12:31-0400 Body weight 109.77 kg Payton Garibay HELPER DRIVER Work Phone: [facility] 06-12-2024 12:31-0400 Diastolic blood pressure 76 mm[Hg] Payton Garibay HELPER DRIVER Work Phone: [facility] 06-12-2024 12:31-0400 Heart rate 68 /min Payton Garibay HELPER DRIVER Work Phone: [facility] 06-12-2024 12:31-0400 Respiratory rate 18 /min Payton Garibay HELPER DRIVER Work Phone: [facility] 06-12-2024 12:31-0400 SaO2% (BldA) [Mass fraction] 98 % Payton Garibay HELPER DRIVER Work Phone: [facility] 06-12-2024 12:31-0400 Systolic blood pressure 124 mm[Hg] Payton Garibay HELPER DRIVER Work Phone: [facility] 04-25-2024 09:29-0400 Body height 165.1 cm [facility] 04-25-2024 09:29-0400 Body mass index (BMI) [Ratio] 38.2 kg/m2 [facility] 04-25-2024 09:29-0400 Body weight 104.32 kg [facility] Encounters Encounter Date Encounter Type Care Provider Facility Start: 12-13-2024 End: 12-13-2024 Bamboo flowsheet Darcy Keita Pocos DO Work Phone: [facility] Start: 12-13-2024 End: 12-13-2024 Bamboo flowsheet Darcy Keita Pocos DO Work Phone: [facility] Start: 12-13-2024 End: 12-13-2024 Patient encounter procedure Darcy Keita Pocos DO Work Phone: [facility] Comment on above: Primary osteoarthrit is of right knee (Primary Dx); Patellofemoral disorder of right knee; Morbid obesity (CMS/HCC) Start: 12-13-2024 End: 12-13-2024 ambulatory DARCY Keita POCOS Not Available Start: 11-18-2024 End: 11-18-2024 Bamboo flowsheet Yaa BABB Work Phone: [facility] Start: 11-18-2024 End: 11-25-2024 Bamboo flowsheet Yaa BABB Work Phone: [facility] Start: 11-18-2024 End: 11-25-2024 Clinisync Result Encounter Yaa BABB Work Phone: [facility] Unsolicited Start: 11-18-2024 End: 11-19-2024 External Result Encounter Yaa BABB Work Phone: [facility] Unsolicited Start: 11-18-2024 End: 11-18-2024 Patient encounter procedure Yaa BABB Work Phone: [facility] Start: 11-18-2024 End: 11-18-2024 Periodic preventive med est patient 40-64yrs Yaa BABB Work Phone: [facility] Comment on above: Well woman exam with routine gynecological exam; Encounter for screening mammogram for malignant neoplasm of breast; Hormone disorder Start: 11-18-2024 End: 11-18-2024 ambulatory YAA BOSTON Not Available Start: 11-15-2024 End: 11-15-2024 Patient encounter procedure Tushar Abraham DO Work Phone: [facility] Comment on above: Right knee pain, uns pecified chronicity (Primary Dx); Acute pain of right knee; Primary osteoarthritis of right knee; Morbid obesity (CMS/HCC); Patellofemoral disorder of right knee Start: 11-15-2024 End: 11-15-2024 ambulatory DARCY Keita ABRAHAM Not Available Start: 11-11-2024 End: 11-11-2024 Office outpatient visit 25 minutes Law Alfred HELPER DRIVER Work Phone: [facility] Comment on above: Acute pain of right knee (Primary Dx) Start: 11-11-2024 End: 11-11-2024 ambulatory LAW ALFRED Not Available Start: 11-11-2024 End: 11-11-2024 Bamboo flowsheet Law Alfred HELPER DRIVER Work Phone: [facility] Start: 11-11-2024 End: 11-11-2024 Bamboo flowsheet Law Alfred HELPER DRIVER Work Phone: [facility] Start: 10-21-2024 End: 10-21-2024 ambulatory SEJAL DONAHUE Not Available Start: 10-21-2024 End: 10-21-2024 Office outpatient visit 15 minutes Sejal Donahue DPM Work Phone: [facility] Comment on above: Sinus tarsitis of le ft foot (Primary Dx); Sinus tarsitis of right foot; Pain in both feet Start: 10-15-2024 End: 10-15-2024 ambulatory PAYTON GARIBAY Not Available Start: 10-15-2024 End: 10-15-2024 Office outpatient visit 25 minutes Payton Garibay HELPER DRIVER Work Phone: [facility] Comment on above: Left foot pain (Prim susan Dx); Morbid (severe) obesity due to excess calories (CMS/HCC); Body mass index (BMI) 40.0-44.9, adult ([facility]) Start: 10-15-2024 End: 10-15-2024 Bamboo flowsheet Payton Garibay HELPER DRIVER Work Phone: [facility] Start: 10-15-2024 End: 10-15-2024 Bamboo flowsheet Payton Sanchezk HELPER DRIVER Work Phone: [facility] Start: 09-27-2024 End: 09-30-2024 Telephone encounter Gladys Kebede MD Work Phone: [facility] Start: 06-12-2024 End: 06-12-2024 Bamboo flowsheet Payton Garibay HELPER DRIVER Work Phone: [facility] Start: 06-12-2024 End: 06-12-2024 Bamboo flowsheet Payton Sanchezk HELPER DRIVER Work Phone: [facility] Start: 06-12-2024 End: 06-12-2024 Office outpatient visit 15 minutes Payton Garibay HELPER DRIVER Work Phone: [facility] Comment on above: Right foot pain (Sia sudhir Dx); Acute left otitis media Start: 06-12-2024 End: 06-12-2024 ambulatory PAYTON GARIBAY Not Available Start: 05-07-2024 End: 05-07-2024 Patient encounter procedure MD Gladys Kebede Work Phone: [facility] Work Phone: Start: 05-07-2024 End: 05-07-2024 ambulatory MD Gladys Kebede Work Phone: [facility] Work Phone: Start: 04-25-2024 End: 04-25-2024 ambulatory [facility] Work Phone: Start: 04-25-2024 End: 04-25-2024 Patient encounter procedure [facility] Work Phone: Start: 04-01-2024 End: 04-01-2024 ambulatory ANALIA QUIROGAO Not Available Start: 03-18-2024 End: 03-18-2024 ambulatory ANALIA TITA Not Available Start: 03-13-2024 End: 03-13-2024 ambulatory PAYTON A GARIBAY Not Available Start: 01-30-2024 End: 01-30-2024 ambulatory PAYTON A GARIBAY Not Available Start: 01-22-2024 End: 01-22-2024 ambulatory PAYTON A GARIBAY Not Available Start: 09-18-2023 End: 09-18-2023 Office outpatient visit 25 minutes Sejal Donahue DPM Work Phone: [facility] Comment on above: Common peroneal neur [...] GLADYS KEBEDE Facility:[facility] Start: 07-19-2017 Ambulatory David Ayala Facility:[facility] Start: 06-21-2017 Ambulatory David Ayala Facility:[facility] Start: 06-09-2017 Ambulatory David Ayala Facility:[facility] Procedures Date Procedure Procedure Detail Performing Clinician Start: 11-18-2024 RECURRENT VAGINITIS (HTRX) Yaa BABB Work Phone: Start: 11-18-2024 IGP,APTIMA HPV,AGE GDLN Generic External Data Provider Start: 11-15-2024 Arthrocentesis aspir&/inj major jt/bursa w/o us Darcy Rosario DO Work Phone: Start: 11-15-2024 Radiologic examination knee 1/2 views Darcy Rosario DO Work Phone: Start: 05-07-2024 Ultrasound elastography of liver MD Gladys Kebede Work Phone: Start: 08-22-2023 H/O: hysterectomy History of hysterectomy Sejal Donahue DPM Work Phone: Start: 02-03-2022 Mammography Sejal Donahue DPM Work Phone: Start: 03-23-2020 Colonoscopy Payton Garibay HELPER DRIVER Work Phone: Plan of Treatment Date Care Activity Detail Author Start: 03-23-2030 Screening for malign ant neoplasm of colon [facility] Start: 04-14-2025 Influenza vaccination Influenz a Vaccine (Season Ended) [facility] Start: 12-13-2024 End: 12-13-2024 Patient encounter procedure [facility] Comment on above: Arrived Start: 11-18-2024 End: 11-18-2025 C-peptide C-peptide Lab Routine Hormone disorder Expected: 11/18/2024 (Approximate), Expires: 11/18/[address] [facility] Comment on above: Expected: 11/18/2024 (Approximate), Expires: 11/18/2025 Start: 11-18-2024 End: 11-18-2025 Cortisol free Cortisol, free Lab Routine Hormone disorder Expected: 11/18/2024 (Approximate), Expires: 11/18/[address] [facility] Comment on above: Expected: 11/18/2024 (Approximate), Expires: 11/18/2025 Start: 11-18-2024 End: 11-18-2025 Glucose [Mass/volume] in Serum or Plasma Glucose, random Lab Routine Hormone disorder Expected: 11/18/2024 (Approximate), Expires: 11/18/2025 [facility] Comment on above: Expected: 11/18/2024 (Approximate), Expires: 11/18/2025 Start: 11-18-2024 End: 11-18-2025 Insulin, total Insulin, total Lab Routine Hormone disorder Expected: 11/18/2024 (Approximate), Expires: 11/18/2025 [facility] Comment on above: Expected: 11/18/2024 (Approximate), Expires: 11/18/2025 Start: 11-18-2024 End: 11-18-2025 Lipid 1996 panel - Serum or Plasma Lipid panel Lab Routine Well woman exam with routine gynecological exam Expected: 11/18/2024 (Approximate), Expires: 11/18/2025 [facility] Comment on above: Expected: 11/18/2024 (Approximate), Expires: 11/18/2025 Start: 11-18-2024 End: 01-18-2026 MG Breast - bilateral Screening Bilateral screening mammogram Imaging Routine Encounter for screening mammogram for malignant neoplasm of breast Expected: 11/18/2024 (Approximate), Expires: 01/18/2026 [facility] Work Phone: Comment on above: Expected: 11/18/2024 (Approximate), Expires: 01/18/2026 Start: 11-18-2024 End: 11-18-2025 Serotonin serum Serotonin serum Lab Routine Hormone disorder Expected: 11/18/2024 (Approximate), Expires: 11/18/2025 [facility] Comment on above: Expected: 11/18/2024 (Approximate), Expires: 11/18/2025 Start: 11-18-2024 End: 11-18-2025 Thyroglobulin Thyroglobulin Lab Routine Hormone disorder Expected: 11/18/2024 (Approximate), Expires: 11/18/2025 [facility] Comment on above: Expected: 11/18/2024 (Approximate), Expires: 11/18/2025 Start: 11-18-2024 End: 11-18-2025 Thyroglobulin Antibody Thyroglobulin Antibody Lab Routine Hormone disorder Expected: 11/18/2024 (Approximate), Expires: 11/18/2025 [facility] Comment on above: Expected: 11/18/2024 (Approximate), Expires: 11/18/2025 Start: 11-18-2024 End: 11-18-2025 Thyrotropin [Units/volume] in Serum or Plasma [facility] Comment on above: Ordered: 11/18/2024 Expected: 11/18/2024 (Approximate), Expires: 11/18/2025 Start: 11-18-2024 End: 11-18-2024 Patient encounter procedure [facility] Comment on above: Arrived Start: 11-11-2024 End: 11-11-2024 Patient encounter procedure 11/11/2024 3:00 PM EDT Office Visit [facility] [address] [facility] [place] [phone] Law Alfred NP [address] [facility], [place] [phone] Arrived [facility] Comment on above: [...] EST Office Visit [facility] [address] [place] [phone] Analia Santamaria, [address] [place], [place] [id number] [facility] Start: 06-12-2024 End: 06-12-2025 XR Foot - right 2 Views [facility] Work Phone: Comment on above: Expected: 06/12/2024 , Expires: 06/12/2025 Start: 06-12-2024 End: 06-12-2024 Patient encounter procedure 06/12/2024 12:30 PM EDT Office Visit [facility] [address] [place] [address] Payton Garibay BRITTNEY [address] [place] [address] Arrived [facility] Comment on above: Arrived Start: 05-07-2024 [facility] Start: 04-14-2024 Influenza vaccination Influenza Vacc ine (#1) [facility] Start: 02-11-2024 Influenza vaccination Influenza Vacc ine (#1) 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 Work Phone: Comment on above: Expected: 09/20/2023 (Approximate), Expires: 09/20/2024 Start: 02-03-2023 Screening for malign ant neoplasm of breast Mammogram [facility] Start: 1980 Screening for malign ant neoplasm of colon [facility] CBC W Auto Different ial panel - Blood CBC and differential Lab Routine Well woman exam with routine gynecological exam Ordered: 11/18/[address] [facility] Comment on above: Ordered: 11/18/2024 Comprehensive metabo lic 2000 panel - Serum or Plasma Comprehensive metabolic panel Lab Routine Well woman exam with routine gynecological exam Ordered: 11/18/[address] [facility] Comment on above: Ordered: 11/18/2024 DHEA-sulfate DHEA-sulfate Lab Routine Hormone disorder Ordered: 11/18/[address] [facility] Comment on above: Ordered: 11/18/2024 Estradiol Estradiol Lab Ro utine Hormone disorder Ordered: 11/18/[address] [facility] Comment on above: Ordered: 11/18/2024 Estrone Estrone Lab Rout ine Hormone disorder Ordered: 11/18/[address] [facility] Comment on above: Ordered: 11/18/2024 Ferritin [Mass/volum e] in Serum or Plasma Ferritin Lab Routine Hormone disorder Ordered: 11/18/[address] [facility] Comment on above: Ordered: 11/18/2024 Hemoglobin A1c/Hemoglobin.total in Blood [facility] Comment on above: Ordered: 11/18/2024 Hepatic function panel [facility] Hepatitis A virus Ab [Presence] in Serum by Immunoassay [facility] Hepatitis B core ant ibody measurement [facility] Hepatitis B core ant ibody measurement, IgM type [facility] Hepatitis B virus man rface Ab [Presence] in Serum [facility] Progesterone Progesterone Lab Routine Hormone disorder Ordered: 11/18/[address] [facility] Comment on above: Ordered: 11/18/2024 Sex hormone binding globulin Sex hormone binding globulin Lab Routine Hormone disorder Ordered: 11/18/[address] [facility] Comment on above: Ordered: 11/18/2024 T3, reverse T3, reverse Lab Routine Hormone disorder Ordered: 11/18/[address] [facility] Comment on above: Ordered: 11/18/2024 TESTOSTERONE, FREE TESTOSTERONE, FREE Lab Routine Hormone disorder Ordered: 11/18/[address] [facility] Comment on above: Ordered: 11/18/2024 Testosterone, free, total Testos terone, free, total Lab Routine Hormone disorder Ordered: 11/18/[address] [facility] Comment on above: Ordered: 11/18/2024 THIN PREP TIS PAP AN D HR HPV DNA THIN PREP TIS PAP AND HR HPV DNA Pathology and Cytology Routine Well woman exam with routine gynecological exam Ordered: 11/18/[address] [facility] Comment on above: Ordered: 11/18/2024 Thyroid peroxidase antibody Thyroid peroxidase antibody Lab Routine Hormone disorder Ordered: 11/18/[address] [facility] Comment on above: Ordered: 11/18/2024 Thyroxine (T4) free [Mass/volume] in Serum or Plasma T4, free Lab Routine Hormone disorder Ordered: 11/18/[address] [facility] Comment on above: Ordered: 11/18/2024 Triiodothyronine (T3 ) Free [Mass/volume] in Serum or Plasma T3, free Lab Routine Hormone disorder Ordered: 11/18/[address] [facility] Comment on above: Ordered: 11/18/2024 Vitamin D 1,25 dihydroxy Vitamin D 1,25 dihydroxy Lab Routine Hormone disorder Ordered: 11/18/[address] [facility] Comment on above: Ordered: 11/18/2024 [facility] Immunizations Immunization Date Immunization Notes Care Provider Ross bolanos 08-29-2016 tetanus toxoid, redu dangelo diphtheria toxoid, and acellular pertussis vaccine, adsorbed Sejal Donahue DPM Work Phone: [facility] Payers Date Payer Category Payer Self-pay [id number] 2023 Unknown BCBS BCBS xxxxxx [id number] 2023-Present [phone] [address] [place] [address] [id number] 2023 Blue Cross Blue Shield 1.2.8 [id number] 2017 Unknown [id number] 1979 Unknown [id number] 2.16.840.1.936626.3.579.2.59 3 1979 Unknown [id number] 2.16.840.1.369425.3.579.2.59 3 1979 Unknown [id number] 2.16.840.1.608422.3.579.2.12 59 1979 Unknown [id number] 2.16.840.1.189740.3.579.2.12 59 1979 Unknown [id number] 2.16.840.1.993942.3.579.2.12 59 1979 Unknown [id number] 2.16.840.1.105946.3.579.2.12 59 1979 Unknown [id number] 2.16.840.1.372352.3.579.2.12 59 1979 Unknown [id number] 2.16.840.1.044886.3.579.2.12 59 1979 Unknown [id number] 2.16.840.1.712005.3.579.2.12 59 1979 Unknown [id number] 2.16.840.1.542304.3.579.2.12 59 1979 Unknown [id number] 2.16.840.1.061059.3.579.2.12 59 1979 Unknown [id number] 2.16.840.1.736532.3.579.2.12 59 1979 Unknown [id number] 2.16.840.1.047890.3.579.2.12 59 1979 Unknown [id number] 2.16.840.1.888751.3.579.2.12 59 1979 Unknown [id number] 2.16.840.1.970003.3.579.2.12 59 1979 Unknown [id number] 2.16.840.1.470833.3.579.2.12 59 1979 Unknown [id number] 2.16.840.1.481147.3.579.2.12 59 1979 Unknown [id number] 2.16.840.1.342161.3.579.2.12 59 1959 Unknown [id number] Unknown [facility] [id number] Unknown [id number] 2.16.840.1.760652.3.579.2.53 1 Social History Date Type Detail Facility Start: 08-22-2023 Tobacco smoking status MAIS Never smoked tobacco [facility] Start: 08-22-2023 Tobacco use and exposure Smokeless tobacco non-user [facility] Start: 09-18-2023 End: 12-13-2024 Alcohol intake Ex-drinker (finding) [facility] Start: [...] or more drinks on 1 occasion? Never [facility] Start: 09-13-2023 Alcohol Comment Caffeine intake : 2-3 cups per day coffee [facility] Start: 1980 Sex Assigned At Not on file [facility] Start: 10-26-2022 Gender identity Identifies as female gender (finding) [facility] Start: 03-23-2020 Tobacco smoking status NHIS Ex-smoker (finding) [facility] Start: 1980 Sex Assigned At Female [facility] Medical Equipment Procedure Code Equipment Code Equipment Origin al Text Equipment Identifier Dates Ankle arthroscopy SUTURE ANCHOR FDA Star t: 07-20-2018 Ankle arthroscopy SUTURE ANCHOR FDA Star t: 07-20-2018 Clinical Notes 09-18-2023 to 12-13-2024 Kelly Sims - 12/13/2024 10:00 AM HOLLEY Miranda - 11/18/2024 11:00 AM Rea Burk MA - 11/15/2024 10:00 AM EDLowell Sims - 11/15/2024 10:00 AM EDTCdiamond Donahue DPM - 10/21/2024 1:00 PM EDT Note Date & Type Note Facility 12-13-2024 History of Presen t illness Narrative Images from the original note were not included. Ailyn Harley is a 44 y.o. female presents with chief complaint of follow up right knee osteoarthritis, patellofemoral pain syndrome. HPI: Ailyn returns here today for repeat evaluation of the above. She is doing better, making slow steady improvement. She is simply doing the exercise program on her own. She did have a corticosteroid injection. She has had no other care or treatment in the meantime. She does have some pain medially. She questions whether there could be a tear. SUBJECTIVE: MEDICATIONS: Current Outpatient Medications Medication Instructions albuterol HFA (Ventolin HFA) 90 mcg/act inhaler 2 puffs, Inhalation, Every 4 hours PRN albuterol 2.5 mg, Nebulization, Every 6 hours PRN cholecalciferol (VITAMIN D-3) 1,000 Units, Daily Cyanocobalamin (VITAMIN B-12 PO) Take by mouth Magnesium 250 MG capsule Take by mouth metFORMIN XR (GLUCOPHAGE-XR) 500 mg, Oral, Daily with evening meal, Do not crush, chew, or split. Multiple Vitamin (multivitamin) tablet 1 tablet, Oral, [...] 2.26 m Physical Exam Her orthopedic exam here today reveals the morbid obesity unchanged. She does have a little bit of patellar grind. Tenderness is along the medial compartment. Her varus and valgus stress testing is stable. Mervat is negative. Drawer testing is negative. Examination of the left knee reveals arc of motion without difficulty. The calf and thigh are supple. Neurocirculatory status is overall grossly intact. Examination of the x-ray AP bilateral weight bearing, bilateral sunrise done here today total of four views coupled with x-rays previously does show some medial squaring of the medial femoral condyle coincident with some medial compartment osteoarthritis. She does have some lateral maltracking of the patellae bilaterally. No evidence of fracture or other osseous abnormality. ASSESSMENT AND PLAN: Assessment/Plan Right knee osteoarthritis, patellofemoral pain syndrome; morbid obesity. The findings are discussed. We did recommend she continue along the process of really patellofemoral stabilization. She still lacks VMO strength significantly. We did offer the therapy. Again, she cannot take any of the medicine. We will see her back here only on an as needed basis. As she is trending to the positive, we would not recommend anything further from a work up standpoint. If she does plateau or regress, MRI could be done. This of course would be more for an assessment for internal derangement versus anything to help or treat her patellofemoral findings. She does voice understanding of this. All of her questions are otherwise answered this day. Cosigned by Darcy Rosario DO at 12/16/2024 7:45 AM EDT documented in this encounter [facility] 11-18-2024 History of Presen t illness Narrative Reason for Appointment: Patient ID: Ailyn Harley is a 44 y.o. female who presents for [facility] Women Visit Patient presents today for Annual [...] nursing note reviewed. Exam conducted with a gallery or museum attendant present. Vitals: Estimated body mass index is [...] of: HOLLEY Velasquez documented in this encounter [facility] 11-15-2024 History of Presen t illness Narrative [...] a half ago when she was in [place] for her son's wedding and did hike the [place]. She has taken Tylenol, has tried ice, [...] sent to Dr. Kebede. Cosigned by Darcy Rosario DO at 11/18/2024 7:41 AM EDT documented in this encounter [facility] 11-11-2024 History of Presen t illness Narrative [...] the pain persists, a referral to an therapeutic recreation specialist will be considered. documented in this encounter [facility] 10-21-2024 History of Presen t illness Narrative [...] the current injections. documented in this encounter [facility] 10-15-2024 History of Presen t illness Narrative [...] Morbid (severe) obesity due to excess calories (CMS/HCC) Body mass index (BMI) 40.0-44.9, adult (CMS/HCC) documented in this encounter [facility] 09-30-2024 Telephone encounter Note Entered message in her daughters chart. I will place the referral once the insurance information is verified. [facility] Work Phone: 09-30-2024 Miscellaneous Notes Entered message in her daughters chart. I will place the referral once the insurance information is verified. Pt is seeking new behavioral provider for her daughter Eboni Harley 05/30/09 documented in this encounter [facility] 09-27-2024 Telephone encounter Note Pt is seeking new behavioral provider for her daughter Eboni Harley 05/30/[address] [facility] 06-12-2024 History of Presen t illness Narrative [...] Past Medical History: Diagnosis Date Allergies Asthma ([facility]) Diverticulitis 03/2017 typically every 2 years Ovarian [...] follow-ups on file. documented in this encounter [facility] 04-25-2024 Evaluation note Authored April 25, 2024 [...] check ELF Will check viral hepatitis serologies [facility] Work Phone: [phone]) 950-562806-12-2024 Evaluation note* Author [facility] Authored April 25, 2024 9:48am 43-year-old [...] check ELF Will check viral hepatitis serologies [facility] Work Phone: [phone]) 480-105202-05-2024 History of Present illness Narrative* Sejal Donahue [...] to the area. Patient states that around elsie she was working 16-18 hour days with [...] discuss further treatment options. 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- Primary Common peroneal neuropathy of left lower extremity Neuropathy Mononeuritis of unspecified site Sinus tarsitis of left foot Sinus tarsitis of right foot Peroneal tendinitis of left lower extremity Pain in both feet [facility] Diagnosis Right foot pain- Primary Pain in soft tissues of limb Acute left otitis media [facility] Diagnosis Left foot pain- Primary Pain in soft tissues of limb Morbid (severe) obesity due to excess calories (CMS/HCC) Body mass index (BMI) 40.0-44.9, adult (CMS/HCC) documented in this encounter [facility]* Diagnosis Sinus tarsitis of left foot- Primary Sinus tarsitis of right foot Pain in both feet documented in this encounter [facility]* Diagnosis Acute pain of right knee- Primary documented in this encounter [facility]* Diagnosis Right knee pain, unspecified chronicity- Primary Acute pain of right knee Primary osteoarthritis of right knee Morbid obesity (CMS/HCC) Morbid obesity Patellofemoral disorder of right knee documented in this encounter [facility]* Diagnosis Well woman exam with routine gynecological exam Routine gynecological examination Encounter for screening mammogram for malignant neoplasm of breast Hormone disorder Unspecified endocrine disorder documented in this encounter [facility]* Diagnosis Primary osteoarthritis of right knee- Primary Patellofemoral disorder of right knee Morbid obesity (CMS/HCC) Morbid obesity documented in this encounter [facility] Summary Purpose Family History No Family History Records Found Relationship Condition Age at Onset Recorded Date/T jose mother Diverticulitis Unknown Malignant neoplasm of skin Unknown father Malignant neoplasm of throat Unknown Heart disease Unknown Malignant neoplasm of kidney Unknown Advance Directives No Advanced Directives Records Found Advance Directive Response Recorded Date/ Time Advance Directives No July 18, 2018 4:54pm Reason for Referral Specialty Diagnoses / Procedures Referred By Adonis t Referred To Contact Diagnoses 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 Procedures EMG 2 Extremities Sejal Donahue, DPPatricia [address] [place] [id number] Referral ID Status Reason Start Date Expiration Date V isits Requested Visits Authorized [id number] Incomplete 09/20/2023 03/18/2024 1 1 Chief Complaint and Reason for Visit Chief Complaint abdominal pain Reason for Visit Hepatic steatosis Chief Complaint abdominal pain Fatty Liver Reason for Visit Hepatic steatosis Additional Source Comments INFORMATION SOURCE (unrecogn ized section and content) DATE CREATED AUTHOR 02/06/2018 [facility] DATE CREATED AUTHOR AUTHOR'S ORGANIZ ATION 10/25/2021 [facility] DATE CREATED AUTHOR AUTHOR'S ORGANIZ ATION 02/04/2022 [facility] DATE CREATED AUTHOR AUTHOR'S ORGANIZ ATION 08/13/2024 [facility] DATE CREATED AUTHOR AUTHOR'S ORGANIZ ATION 12/18/2024 [facility] EPIC Reason for Visit (unrecogniz ed section and content) Reason Comments Ankle Pain Reason Comments Nasal Congestion Reason Comments left foot pain Reason Comments Knee Pain Reason Comments Pain Specialty Diagnoses / Procedures Referred By Contac t Referred To Contact Orthopaedic Surgery Diagnoses Acute pain of right knee Law Alfred, HELPER DRIVER [address] [place] [address] Phone: tel: fax: Kyrie Bennett, DO [address] [place] [address] Phone: tel: fax: Referral ID Status Reason Start Date Expiration Date V isits Requested Visits Authorized [id number] Closed Specialty Services Required 11/12/2024 05/11/2025 1 1 Reason Comments Well Women Visit Reason Comments Pain Care Teams (unrecognized sec tion and content) [employer] Relationship Specialty Start Date End Date Gladys Kebede MD [address] [place] [address] PCP - [employer] 06/14/22 Gladys Kebede MD [address] [place] [address] PCP - General Family Medicine 12/20/22 Team [...] May 07, 2024 End: May 07, 2024 [employer] Relationship Specialty Start Date End Date Gladys Kebede MD [address] [facility] [place] [address] PCP - General Family Medicine 12/20/22 Payton Garibay NP [address] [place] [address] PCP - [employer] 04/14/24 [employer] Relationship Specialty Start Date End Date Gladys Kebede MD [address] [place] [address] PCP - General Family Medicine 12/20/22 Payton Garibay NP [address] [place] [address] PCP - [employer] 04/14/24 [employer]er Relationship Specialty Start Date End Date Gladys Kebede MD [address] [place] [address] PCP - General Family Medicine 12/20/22 [employer]er Relationship Specialty Start Date End Date Gladys Kebede MD [address] [place] [address] PCP - General Family Medicine 12/20/22 [employer]er Relationship Specialty Start Date End Date Gladys Kebede MD [address] [place] [address] PCP - General Family Medicine 12/20/22 [employer]er Relationship Specialty Start Date End Date Gladys Kebede MD [address] [place] [address] PCP - General Family Medicine 12/20/22 [employer]er Relationship Specialty Start Date End Date Gladys Kebede MD [address] [place] [address] PCP - General Family Medicine 12/20/22 [employer]er Relationship Specialty Start Date End Date Gladys Kebede MD [address] [place] [address] PCP - General Family Medicine 12/20/22 [employer]er Relationship Specialty Start Date End Date Gladys Kebede MD [address] [place] [address] PCP - General Family Medicine 12/20/22 [employer]er Relationship Specialty Start Date End Date Gladys Kebede MD [address] [place] [address] PCP - General Family Medicine 12/20/22 [employer] As[employer]er Relationship Specialty Start Date End Date Gladys Kebede MD [address] [place] [address] PCP - General Family Medicine 12/20/22 [employer]er Relationship Specialty Start Date End Date Gladys Kebede MD [address] [place] [address] PCP - General Family Medicine 12/20/22 [employer] As[employer]er Relationship Specialty Start Date End Date Gladys Kebede MD [address] [place] [address] PCP - General Family Medicine 12/20/22 Goals [...] BE BASED ON THE PRIMARY CLINICAL RECORDS. [employer] provides no warranty or guarantee of the accuracy or completeness of information in this document.
--- NOTE | 2025-01-12 08:20 | CT_ITS ---
The [address] [address] Patient Name: CESAR LOPEZ MRN: [id number] date: 1980 Sex: F Assigned Patient Location: ER Current Patient Location: ER Accession/Order Number: [id number] Exam Date: 01/12/2025 09:39 Report Date: 01/12/2025 09:44 At the request of: LIZA PARTIDA MD Procedure: CT abdomen pelvis wo con CT Abdomen and Pelvis withoutcontrast TECHNIQUE: Axial imaging with 2-D reconstruction. . The CT exam was performed using one or more the following dose reduction techniques: Automated exposure control, adjustment of the MA and/or Kv according to patient size, or use of the iterative reconstruction technique. COMPARISON: 01/22/2024 History: Left lower quadrant abdominal pain LIMITATIONS: None LOWER THORAX Unremarkable LIVER: Hepatic steatosis. GALLBLADDER: Cholelithiasis. BILE DUCTS: No dilatation SPLEEN: Unremarkable PANCREAS: Unremarkable ADRENAL GLANDS: Unremarkable KIDNEYS:Unremarkable AORTA: No abdominal aortic aneurysm identified. RETROPERITONEUM: No significant retroperitoneal abnormalities identified. MESENTERY:Unremarkable SMALL BOWEL: The small bowel loops are nondistended. APPENDIX: The appendix is normal. COLON: Diffuse diverticulosis. Wall thickening of the proximal sigmoid colon. Peridiverticular fat stranding near the proximal sigmoid colon. No extraluminal air. No abscess. URINARY BLADDER: Urinary bladder is unremarkable. REPRODUCTIVE SYSTEM: Reproductive structures are unremarkable. PNEUMOPERITONEUM: None PERITONEAL FLUID:None BONY STRUCTURES: Lumbar degeneration. ABDOMINAL WALL: Unremarkable CT/CT abdomen pelvis wo con IMPRESSION: Uncomplicated acute proximal sigmoid diverticulitis. Hepatic steatosis. Cholelithiasis. Impression dictated by: Oren Bocanegra M.D. 01/12/2025 9:44 AM Dictation Location: [employer] Electronically authenticated by: [id number] Y Date: 01/12/2025 09:44
[2025-01-12] MEDS: 0.9 % SODIUM CHLORIDE 1,000 ML 1000 ML IV (08:32)
[2025-01-12] MEDS: KETOROLAC TROMETHAMINE 30 MG/ML VIAL 15 MG IVP (08:32)
[2025-01-12] MEDS: ONDANSETRON PF 4 MG/2 ML VIAL IV (08:33)
[2025-01-12 08:54] LABS: Basophils Percent Auto 0.5 % (0.2-2.0); Eosinophils Absolute Auto 0.1 10^3/uL (0.0-0.7); Hematocrit 41.2 % (36.0-48.0); Hemoglobin 14.2 g/dL (12.0-16.0); Immature Granulocytes Abs Auto 0.03 10^3/uL (0.00-0.03); Immature Granulocytes Pct Auto 0.4 % (0.0-0.5); Lymphocytes Absolute Auto 1.2 10^3/uL (1.2-3.8); Lymphocytes Percent Auto 14.2 % (20.5-60.0); Mean Corpuscular HGB Conc 34.5 g/dL (29.9-35.2); Mean Platelet Volume 9.7 fL (9.5-13.5); Monocytes Absolute Auto 0.7 10^3/uL (0.3-0.8); Monocytes Percent Auto 8.2 % (1.7-12.0); Neutrophils Absolute Auto 6.4 10^3/uL (1.4-6.5); Neutrophils Percent Auto 75.7 % (43.0-75.0); Platelet Count 247 10^3/uL (150-450); Red Blood Count 4.58 10^6/uL (4.20-5.40); White Blood Count 8.4 10^3/uL (4.0-11.0)
[2025-01-12 09:02] LABS: Bilirubin Urine NEGATIVE (NEGATIVE); Blood Urine TRACE-I (NEGATIVE); Clarity Urine CLEAR (CLEAR); Color Urine YELLOW (YELLOW); Glucose Urine UA NEGATIVE (NEGATIVE); Ketones Urine NEGATIVE (NEGATIVE); Leukocyte Esterase Urine NEGATIVE (NEGATIVE); Nitrite Urine NEGATIVE (NEGATIVE); Protein Urine TRACE mg/dL (NEG/TRACE); Specific Gravity Urine 1.025 (1.005-1.025); Urobilinogen Urine 0.2 EU/dL (0.2-1.0); pH Urine 6.5 (5.0-9.0)
[2025-01-12 09:03] LABS: HCG Qualitative NEGATIVE (NEGATIVE); Internal Control Within Normal Limits
[2025-01-12 09:05] LABS: Urine Microscopic Indicated YES
[2025-01-12 09:09] LABS: Bacteria Urine TRACE #/HPF (NONE SEEN); Cast Seen? NONE SEEN #/LPF (NONE SEEN); Crystals Seen? None Seen #/HPF (None Seen); Mucus Urine MODERATE (NONE SEEN); RBC Urine 0-2 #/HPF (0-2); Squamous Epithelial Cell Urine MODERATE #/LPF (NONE/RARE); Urine Culture Indicated NO; WBC Urine NONE SEEN #/HPF (NONE SEEN)
[2025-01-12 09:11] LABS: Alanine Aminotransferase 55 U/L (14-59); Albumin Level 3.6 g/dL (3.4-5.0); Alkaline Phosphatase 63 U/L (46-116); Anion Gap 12.6; Aspartate Amino Transferase 25 U/L (15-37); BUN Creatinine Ratio 15.5; Bilirubin Total 0.8 mg/dL (0.2-1.0); Carbon Dioxide 28.6 mmol/L (21.0-32.0); Chloride 103 mmol/L (98-107); Estimated GFR (African America >60 (>=60 mL/min/1.73m^2); Estimated GFR (Non-African Ame >60 (>=60 mL/min/1.73m^2); Globulin 3.6 g/dL; Glucose 114 mg/dL (74-106); Potassium 4.2 mmol/L (3.5-5.1); Sodium 140 mmol/L (136-145); Total Protein 7.2 g/dL (6.4-8.2)
--- NOTE | 2025-01-12 10:22 | ED.ABDPAIN1 ---
HPI - Abdominal Pain General Chief Complaint: Abdominal Pain Stated Complaint: VOMITING L LOW EXTREMITY PAIN Time Seen by Provider: 01/12/25 08:10 Source: patient Mode of arrival: walk-in History of Present Illness HPI narrative: The patient is a 44-year-old female with history of multiple episode of diverticulitis coming to the ER with almost 1 to 2 days history of left lower quadrant pain associate with some nausea, no change in bowel movement Patient mentioned that the pain is not radiating she think that it is similar to her diverticulitis pain No fever no chills Patient also mentioned that she recently started on metformin for weight loss Related Data Home Medications ?Medication ?Instructions ?Recorded ?Confirmed cyanocobalamin (vitamin B-12) 500 500 mcg PO DAILY 01/12/25 01/12/25 mcg tablet (B-12 DOTS) magnesium 200 mg tablet 200 mg PO DAILY 01/12/25 01/12/25 metformin 500 mg tablet,extended mg PO 01/12/25 release 24 hr Previous Rx's ?Medication ?Instructions ?Recorded ciprofloxacin HCl 500 mg tablet 500 mg PO Q12H #14 tabs 01/12/25 metronidazole 500 mg tablet 500 mg PO Q8H 7 days #21 tabs 01/12/25 Allergies Allergy/AdvReac Type Severity Reaction Status Date / Time cefazolin (From Anc) Allergy Intermediate Verified 01/22/24 16:08 prednisone Allergy Intermediate Unknown Verified 01/22/24 16:08 Review of Systems ROS Status of ROS 10 or more systems reviewed and unremarkable except as noted in history and below PFSH PFSH Medical History (Updated 01/12/25 @ 10:30 by Lisa Orona MD) Diverticulosis ?K57.90 - Diverticulosis of intestine, part unspecified, without perforation or abscess without bleeding (ICD-10) Obesity (BMI 30-39.9) ?E66.9 - Obesity, unspecified (ICD-10) Surgical History (Updated 01/23/24 @ 00:23 by Radha Michel) History of ankle surgery ?Z98.890 - Other specified postprocedural states (ICD-10) H/O: hysterectomy ?Z90.710 - Acquired absence of both cervix and uterus (ICD-10) Family History (Updated 01/22/24 @ 21:31 by Radha Michel) Father Family history of CHF (congestive heart failure) Family history of COPD (chronic obstructive pulmonary disease) Family history of cancer Family history of hypertension Family history of myocardial infarction Family history of stroke Grandfather Family history of diabetes mellitus Grandmother Family history of diabetes mellitus Social History (Updated 01/22/24 @ 21:32 by Radha Michel) Within the past year, how often did you have a drink containing alcohol: never Score interpretation: A score less than 3 is consistent with normal alcohol consumption. Smoking status: Former smoker Non-prescribed substance use: denies use Previous occupational history: owns own business Highest level of school completed/degree received: Bachelor's degree Are you now , , , , never or living with a partner: In a typical week, how many times do you talk on the telephone with family, friends, or neighbors: 3 or more times per week How often do you get together with friends or relatives: 3 or more times per week How often do you attend baptist or restorationist services: 4 or more times per year Do you belong to any clubs or organizations such as baptist groups unions, Sportube or athletic groups, or school groups: yes Total score: 4 Score interpretation: A score of greater than or equal to 2 indicates the lowest level of social isolation. Little interest or pleasure in doing things: not at all Feeling down, depressed, or hopeless: not at all Feel stressed/tense/nervous/anxious/difficulty sleeping: not at all Do you think of yourself as: straight/heterosexual Gender Identity: female Exam Narrative Exam Narrative: Nurses notes and vital signs reviewed and patient is not hypoxic. General: Well-appearing and in no apparent distress. Skin: Warm, dry, no pallor noted. No rash. Head: Normocephalic, atraumatic. Neck: Supple, non-tender. Cardiovascular: Regular Rate and Rhythm without murmur, gallop or rub. Respiratory: No accessory muscle use or respiratory distress. Lungs are clear to auscultation, no wheezing, rales or rhonchi Chest Wall: no tenderness Back: No midline thoracic or lumbar vertebral tenderness. No CVA tenderness Musculoskeletal: normal ROM, no calf or popliteal tenderness, no lower extremity edema/swelling GI: Abdomen is soft, left lower quadrant tenderness noted Neurological: A&O x4. No cranial nerve dysfunction observed. No truncal ataxia. Moves all extremities. Sensation intact. Psychiatric: Cooperative and interactive. Normal mood and affect. Constitutional Vital Signs, click to edit/add: Last Vital Signs Pulse 81 01/12/25 08:02 Resp 20 01/12/25 08:02 BP 124/80 01/12/25 08:02 Pulse Ox 98 01/12/25 08:02 O2 Del Method Room Air 01/12/25 08:02 Course Vital Signs Vital signs: Vital Signs Pulse Rate 81 01/12/25 08:02 Respiratory Rate 20 01/12/25 08:02 Blood Pressure 124/80 01/12/25 08:02 Pulse Oximetry 98 01/12/25 08:02 Oxygen Delivery Method Room Air 01/12/25 08:02 Pulse Rate 81 01/12/25 08:02 Respiratory Rate 20 01/12/25 08:02 Blood Pressure 124/80 01/12/25 08:02 Pulse Oximetry 98 01/12/25 08:02 Oxygen Delivery Method Room Air 01/12/25 08:02 MDM - Abdominal Pain MDM Narrative Medical decision making narrative: The patient presenting to us with a possible acute diverticulitis CBC and chemistry showed no acute pathology and the test was negative Urinalysis showed no acute pathology The patient was treated in the ER with Toradol as well as Zofran The CAT scan without contrast showed that the patient have acute diverticulitis mostly at the sigmoid on the left side and the patient had no signs of perforation or abscess The patient tolerating p.o. intake she was discharged home with acute diverticulitis management low-fat liquid diet in addition to antibiotic mostly Cipro and Flagyl for the next 7 days The patient was instructed about the importance of coming back to the ER in case of any worsening of her pain or any fever The patient is to follow up with primary care physician in next 2-3 days or to return to the emergency department should any of the signs or symptoms worsen or new symptoms develop. The patient agrees with the following Diagnosis and Treatment plan and the patient will be discharged home. Lab Data Labs: Lab Results 01/12/25 01/12/25 Range/Units 08:36 08:54 WBC 8.4 (4.0-11.0) 10^3/uL RBC 4.58 (4.20-5.40) 10^6/uL Hgb 14.2 (12.0-16.0) g/dL Hct 41.2 (36.0-48.0) % MCV 90.0 (81.0-99.0) fL MCH 31.0 (26.7-34.0) pg MCHC 34.5 (29.9-35.2) g/dL RDW 12.0 (11.0-15.0) % Plt Count 247 (150-450) 10^3/uL MPV 9.7 (9.5-13.5) fL Neut % (Auto) 75.7 H (43.0-75.0) % Lymph % (Auto) 14.2 L (20.5-60.0) % [place] % (Auto) 8.2 (1.7-12.0) % Eos % (Auto) 1.0 (0.9-7.0) % Baso % (Auto) 0.5 (0.2-2.0) % Neut # (Auto) 6.4 (1.4-6.5) 10^3/uL Lymph # (Auto) 1.2 (1.2-3.8) 10^3/uL [place] # (Auto) 0.7 (0.3-0.8) 10^3/uL Eos # (Auto) 0.1 (0.0-0.7) 10^3/uL Baso # (Auto) 0.0 (0.0-0.1) 10^3/uL Abs Immat Gran (auto) 0.03 (0.00-0.03) 10^3/uL Imm/Tot Granulo (auto) 0.4 (0.0-0.5) % Sodium 140 (136-145) mmol/L Potassium 4.2 (3.5-5.1) mmol/L Chloride 103 (98-107) mmol/L Carbon Dioxide 28.6 (21.0-32.0) mmol/L Anion Gap 12.6 BUN 13.0 (7.0-18.0) mg/dL Creatinine 0.84 (0.55-1.02) mg/dL Est GFR ( Amer) >60 (>=60 mL/min/1.73m^2) Est GFR (Non-Af Amer) >60 (>=60 mL/min/1.73m^2) BUN/Creatinine Ratio 15.5 Glucose 114 H (74-106) mg/dL Calcium 9.0 (8.5-10.1) mg/dL Total Bilirubin 0.8 (0.2-1.0) mg/dL AST 25 (15-37) U/L ALT 55 (14-59) U/L Alkaline Phosphatase 63 (46-116) U/L Total Protein 7.2 (6.4-8.2) g/dL Albumin 3.6 (3.4-5.0) g/dL Globulin 3.6 g/dL Albumin/Globulin Ratio 1.0 Serum HCG, Qual Negative (NEGATIVE) Urine Color Yellow (YELLOW) Urine Clarity Clear (CLEAR) Urine pH 6.5 (5.0-9.0) Ur Specific [place] 1.025 (1.005-1.025) Urine Protein Trace (NEG/TRACE) mg/dL Urine Glucose (UA) Negative (NEGATIVE) mg/dL Urine Ketones Negative (NEGATIVE) mg/dL Urine Occult Blood Trace-i (NEGATIVE) Urine Nitrite Negative (NEGATIVE) Urine Bilirubin Negative (NEGATIVE) Urine Urobilinogen 0.2 (0.2-1.0) EU/dL Ur Leukocyte Esterase Negative (NEGATIVE) Urine RBC 0-2 (0-2) #/HPF Urine WBC None seen (NONE SEEN) #/HPF Ur Squamous Epith Cells Moderate A (NONE/RARE) #/LPF Urine Crystals None seen (None Seen) #/HPF Urine Bacteria Trace A (NONE SEEN) #/HPF Urine Casts None seen (NONE SEEN) #/LPF Urine Mucus Moderate A (NONE SEEN) Ur Culture Indicated? No Discharge Plan Discharge Chief Complaint: Abdominal Pain Clinical Impression: Diverticulitis Patient Disposition: Home, Self-Care Time of Disposition Decision: 10:29 Condition: Good Prescriptions / Home Meds: New metronidazole 500 mg tablet 500 mg PO Q8H 7 Days Qty: 21 0RF ciprofloxacin HCl 500 mg tablet 500 mg PO Q12H Qty: 14 0RF No Action metformin 500 mg tablet extended release 24 hr PO cyanocobalamin (vitamin B-12) [B-12 DOTS] 500 mcg tablet 500 mcg PO DAILY magnesium 200 mg tablet 200 mg PO DAILY Print Language: Luxembourgish Instructions: Diverticulitis (DC), Diverticulitis Diet (ED) Referrals: JACEK KEBEDE [Primary Care Provider, Family Practice] - 1 week Discharge Date/Time: 01/12/25 10:46
== END 2025-01-12 10:46 | disposition home or self-care (01) ==
PROVIDERS: Emergency Provider Emergency Medicine; PCP Family Medicine
DX: K57.32 Diverticulitis of large intestine without perforation or abscess without bleeding (principal); K80.20 Calculus of gallbladder without cholecystitis without obstruction; K76.0 Fatty (change of) liver, not elsewhere classified; Z79.84 Long term (current) use of oral hypoglycemic drugs; Z90.710 Acquired absence of both cervix and uterus; Z87.891 Personal history of nicotine dependence
CPT/HCPCS: 36415; 74176; 80053; 81001; 84703; 85025; 96374; 96375; 99285; J1885; J2405

== ENCOUNTER 2025-02-12 13:01 | Outpatient (OUT) | payer BC, SELFPAY ==
--- OUTSIDE RECORDS SUMMARY | 2025-02-12 13:03 | XMS_ITS | Encounter Summary ---
Author Organization [facility] Address [address] [place] [address] Care Team Providers Care Airfield Engineer Officer Name Role Phone Gladys Salazar MD Primary Care Provider [phone] Encounter Details Date Type Department Care Team (Late st Contact Info) Description 01/02/2025 Abstract [facility] [address] [place] [address] Yoel Santamaria, DO [address] [place], [place] [id number] Social History Tobacco Use Types Packs/Day Years Used Date Smoking Tobacco: Never Smokeless Tobacco: Never Alcohol Use Standard Drinks/Week Comments Not Currently 0 (1 standard drink = 0.6 oz pure alcohol) Caffeine intake : 2-3 cups per day coffee AUDIT-C Answer Date Recorded Q1: How often do you have a drink containing alc ohol? Monthly or less 08/22/2023 Q2: How many drinks containi ng alcohol do you have on a typical day when you are drinking? 1 or 2 08/22/2023 Q3: How often do you have si x or more drinks on one occasion? Never 08/22/2023 PHQ-2 Answer Date Recorded Patient Health Questionnaire-2 Score 0 09/14/2023 Comments No Sex and Gender Information Value Date Recorded Sex Assigned at Not on file Legal Sex Female 6:45 PM EDT Gender Identity Female 10/26/2022 6:45 PM EDT Sexual Orientation Not on file documented as of this encounter Plan of Treatment Not on file documented as of this encounter Visit Diagnoses Not on filedocumented in this encounter Care Teams Airfield Engineer Officer Relationship Specialty Start Date End Date Gladys Salazar MD [address] [place] [address] PCP - General Family Medicine 12/20/22 documented as of this encounter
--- OUTSIDE RECORDS SUMMARY | 2025-02-12 13:03 | XMS_ITS | Encounter Summary ---
Author Organization [facility] Address [address] [place] [address] Care Team Providers Care Machine Hand Name Role Phone Gladys Salazar MD Primary Care Provider [phone] Encounter Details Date Type Department Care Team (Late st Contact Info) Description 01/12/2025 Abstract [facility] [address] [place] [address] Gladys Salazar MD [address] [place] [address] Social History Tobacco Use Types Packs/Day Years [...] on filedocumented in this encounter Care Teams Machine Hand Relationship Specialty Start Date End Date Gladys Salazar MD [address] [facility] [place] [address] PCP - General Family Medicine 12/20/22 documented as of this encounter
--- OUTSIDE RECORDS SUMMARY | 2025-02-12 13:03 | XMS_ITS | Encounter Summary ---
Author Organization [facility] Address [address] [facility] [place] [address] Care Team Providers Care Dining Room Helper Name Role Phone Gladys Salazar MD Primary Care Provider Encounter Details Date Type Department Care Team (Late st Contact Info) Description 02/11/2025 Telephone [facility] [address] [place] [address] Yaa Cedillo PA [address] [place] [address] Social History Tobacco Use Types Packs/Day Years [...] on file documented as of this encounter Miscellaneous Notes * Telephone Encounter - Lisa Montgomery LPN - 02/11/2025 9:27 AM EDT Patient called and left a voicemail and she wanted her to meet with PCP and have some labs done andshe did have this done last week and no results are in and PCP would send a message and that everything was good on her end and proceed with Shots for weight loss and insurance will only cover 2 withPA which are Zepbound and Saxenda. documented in this encounter Plan of Treatment Not on file documented as of this encounter Visit Diagnoses Not on filedocumented in this encounter Care Teams Dining Room Helper Relationship Specialty Start Date End Date Gladys Salazar MD [address] [place] [address] PCP - General Family Medicine 12/20/22 documented as of this encounter
--- OUTSIDE RECORDS SUMMARY | 2025-02-12 13:03 | XMS_ITS | Encounter Summary ---
Author Organization [facility] Address [address] [facility] [address] Care Team Providers Care Steel Worker Name Role Phone Gladys Salazar MD Primary Care Provider [phone] Reason for Visit * Reason Comments Med Refill Encounter Details Date Type Department Care Team ([facility] Contact Info) Description 01/24/2025 Refill [facility] [address] [facility] [address] Yaa Cedillo PA [address] [facility] [address] [place], [facility] Yeast infection Social History Tobacco Use Types Packs/Day Years [...] documented as of this encounter Visit Diagnoses Diagnosis Yeast infection documented in this encounter Care Teams Steel Worker Relationship Specialty Start Date End Date Gladys Salazar MD [address] [place] [address] PCP - General Family Medicine 12/20/22 documented as of this encounter
--- OUTSIDE RECORDS SUMMARY | 2025-02-12 13:03 | XMS_ITS | Clinical Summary ---
Author Organization [facility] Address [address] [place] [address] Care Team Providers Care Line Runner Name Role Phone Gladys Salazar MD Primary Care Provider [phone] Allergies Active Allergy Reactions Criticality Noted Date Comments Cefazolin Unknown 08/22/2023 Ibuprofen Unknown 08/22/2023 Other 09/18/2023 STEROIDS Medications polyethylene glycol, PEG, 3350 (Glycolax) 17 GM/SCOOP powder Take by mouth Active Ascorbic Acid (vitamin C) 250 MG tablet Take 1,500 mg by mouth in the morning. Active albuterol HFA (Ventolin HFA) 90 mcg/act inhalerIndicatio ns:Mild intermittent asthma with exacerbation (HCC) Inhale 2 puffs every 4 (four) hours if needed for wheezing 18 g 1 024 Active albuterol (2.5 MG/3ML) 0.083% nebulizer solutionIndicati ons:Mild intermittent asthma with exacerbation (HCC) Take 3 mL (2.5 mg) by nebulization every 6 (six) hours if needed for wheezing 75 mL 1 024 Active cholecalciferol (Vitamin D-3) 25 MCG (1000 UT) tablet Take 1,000 Units by mouth in the morning. Active Cyanocobalamin (VITAMIN B-12 PO) Take by mouth Active Magnesium 250 MG capsule Take by mouth Active Multiple Vitamin (multivitamin) tablet Take 1 tablet by mouth Daily Active fluconazole (Diflucan) 150 MG tablet TAKE 1 TABLET (150 MG) BY MOUTH 1 TIME FOR 1 DOSE THIS IS A 1 TIME DOSE, TAKE SINGLE TABLET BY MOUTH 025 Active metFORMIN XR (Glucophage-XR) 500 MG 24 hr tabletIndication s:Well woman exam with routine gynecological exam Take 1 tablet (500 mg) by mouth in the evening. Take with meals Do not crush, chew, or split. 30 tablet 11 025 2024 Discontinued fluconazole (Diflucan) 150 MG tabletIndication s:Yeast infection Take 1 tablet (150 mg) by mouth 1 (one) time for 1 dose This is a 1 time dose, take single tablet by mouth. 1 tablet 1 025 2024 Active Problems Problem Noted Date Diagnosed Date Anxiety 08/22/2023 Chronic cough 08/22/2023 Chronic laryngitis 08/22/2023 Chronic rhinosinusitis 08/22/2023 Derangement of unspecified m edial meniscus due to old tear or injury, left knee 08/22/2023 Diverticulitis 08/22/2023 Diverticulosis of large intestine 08/22/2023 Episodic tension-type headache, not intractable 08/22/2023 History of hysterectomy 08/22/2023 Laryngopharyngeal reflux 08/22/2023 Mild intermittent asthma 08/22/2023 Other chronic pain 08/22/2023 Seasonal allergic rhinitis 08/22/2023 Stiffness of left ankle joint 08/22/2023 Encounters Date Type Department Care Team Description 02/11/2025 Telephone [facility] [address] [place] [address] Yaa Cedillo PA 01/28/2025 9:30 AM EDT Office Visit [facility] [address] [place] [address] Oneida Alfred NP Body mass index (BMI) 40.0-44.9, adult ([facility]) (Primary Dx); Morbid (severe) obesity due to excess calories ([facility]); Mixed hyperlipidemia ; Pre-diabetes 01/28/2025 Bamboo flowsheet [facility] [address] [place] [address] Oneida Alfred NP 01/28/2025 Travel 01/24/2025 Refill [facility] [address] [place] [address] Yaa Cedillo PA Yeast infection 01/17/[address] [address] [place] [address] Ria Rodriguez MA 01/16/2025 11:30 AM EDT Office Visit [facility] [address] [place] [address] Yaa Cedillo PA Encounter to discuss test results; Hormone imbalance; H/O: hysterectomy 01/16/2025 Bamboo flowsheet [facility] [address] [place] [address] Yaa Cedillo PA 01/14/[address] [facility] [address] [place] [address] Yaa Cedillo PA 01/12/2025 Abstract [facility] [address] [place] [address] Yoel Santamaria, 01/12/2025 Abstract [facility] [address] [place] [address] Yoel Santamaria, 01/12/2025 Abstract [facility] [address] [place] [address] Gladys Salazar MD 01/02/2025 Abstract [facility] [address] [place] [address] Yoel Santamaria, 12/13/2024 10:00 AM EDT Office Visit [facility] [address] [place] [id number] Darcy Nieto, DO Primary osteoarthritis of right knee (Primary Dx); Patellofemoral disorder of right knee; Morbid obesity ([facility]) 12/13/2024 Bamboo flowsheet [facility] [address] [address] Darcy Nieto, DO 12/13/2024 Travel 11/28/2024 Orders Only [facility] [address] [place] [address] Radha Crenshaw LPN 11/18/2024 11:00 AM EDT Office Visit [facility] [address] [place] [address] Yaa Cedillo PA Well woman exam with routine gynecological exam; Encounter for screening mammogram for malignant neoplasm of breast; Hormone disorder 11/18/2024 Clinisync Result Encounter [facility] External Department Unsolicited Yaa Cedillo PA 11/18/2024 External Result Encounter [facility] External Department Unsolicited Yaa Cedillo PA 11/18/2024 Bamboo flowsheet [facility] [address] [place] [address] Yaa Cedillo PA 11/15/2024 10:00 AM EDT Office Visit [facility] [address] [place] [address] Darcy Nieto DO Right knee pain, unspecified chronicity (Primary Dx); Acute pain of right knee; Primary osteoarthritis of right knee; Morbid obesity ([facility]-HCC); Patellofemoral disorder of right knee 11/15/2024 8:10 AM EDT Ancillary Procedure [facility] [address] [place] [id number] 11/15/2024 Travel from Last 3 Months Immunizations Immunization Administration Dates Next Due Tdap 08/29/2016 Family History Medical History Relation Name Comments Heart failure Father Kidney cancer Father Stroke Father Cancer Mother Diverticulitis Mother Kidney cancer Paternal Grandmother Pancreatic cancer Paternal Grandmother Relation Name Status Comments Brother 1 brother Daughter 1 daughter Father Alive Mother Paternal Grandmother Son 2 sons Social History Tobacco Use Types Packs/Day Years Used Date Smoking Tobacco: Never Smokeless Tobacco: Never Tobacco Cessation:Counseling Given: Not Answered Alcohol Use Standard Drinks/Week Comments Not Currently [...] PM EDT Sexual Orientation Not on file Last Filed Vital Signs Vital Sign Reading Time Taken Comments Blood Pressure 126/78 01/28/2025 9:12 AM EDT Pulse 76 01/28/2025 9:12 AM EDT Temperature 36.2 C (97.2 F) 03/13/2024 9:34 AM EDT Respiratory Rate 18 01/28/2025 9:12 AM EDT Oxygen Saturation 98% 01/28/2025 9:12 AM EDT Inhaled Oxygen Concentration - - Weight 114 kg (251 lb) 01/28/2025 9:12 AM EDT Height 165.1 cm (5' 5 ) 01/28/2025 9:12 AM EDT Body Mass Index 41.77 01/28/2025 9:12 AM EDT Plan of Treatment Health Maintenance Due Date Last Done Comments CT Colonography 1979 FIT-DNA 1979 FIT 1979 FOBT 1980 Sigmoidoscopy 1980 Mammogram 02/03/2023 02/03/2022 Influenza Vaccine (#1) 2025 Colonoscopy 03/23/2030 03/23/2020, 01/12/2015 Colorectal Cancer Screening 03/23/2030 Cervical Cancer Screening Discontinued Pap Smear Discontinued 11/18/2024 HPV/Cotest Discontinued Procedures Procedure Name Priority Date/Time Associated Diagnosis Comments RECURRENT VAGINITIS (HTRX) Routine 11/18/2024 11:51 AM EDT IGP,APTIMA HPV,AGE GDLN Routine 11/18/2024 10:55 AM EDT PAP SMEAR Routine 11/18/2024 12:00 AM EDT OK ARTHROCENTESIS ASPIR&/INJ MAJOR JT/BURSA W/O US Routine 11/15/2024 1:46 PM EDT Right knee pain, unspecified chronicity XR KNEE 1-2 VIEWS RIGHT Routine 11/15/2024 8:07 AM EDT Right knee pain, unspecified chronicity BI MAMMOGRAM SCREENING TOMOSYNTHESIS BILATERAL Routine 02/03/2022 Episodic tension-type headache, not intractable Encounter for screening mammogram for malignant neoplasm of breast Diverticulitis of intestine, part unspecified, without perforation or abscess without bleeding Encounter for other preprocedural examination Posterior tibial tendinitis, left leg Acquired absence of both cervix and uterus COLONOSCOPY Routine 03/23/2020 12:00 PM EDT from Last 3 Months or Most Recently Relevant to Health Maintenance Results * RECURRENT VAGINITIS (HTRX) (11/18/2024 11:51 AM EDT) Pathologist [facility] ATOPOBIUM VAGINAE 0.000 19.961 - 24.689 ppm 11/19/2024 7:04 AM EDT [facility] ATOPOBIUM VAGINAE Not Detected 19.961 - 24.689 ppm 11/19/2024 7:04 AM EDT [facility] BVAB 2,3 (BACTERIAL VAGINOSIS ASSOCIATED BACTERIA 2, 3); MOBILUNCUS SPP 0.000 19.961 - 24.689 ppm 11/19/2024 7:04 AM EDT [facility] BVAB 2,3 (BACTERIAL VAGINOSIS ASSOCIATED BACTERIA 2, 3); MOBILUNCUS SPP Not Detected 19.961 - 24.689 ppm 11/19/2024 7:04 AM EDT [facility] KENDY ALBICANS, PARAPSILOSIS, TROPICALIS 0.000 19.961 - 30.770 ppm 11/19/2024 7:04 AM EDT [facility] KENDY ALBICANS, PARAPSILOSIS, TROPICALIS Not Detected 19.961 - 30.770 ppm 11/19/2024 7:04 AM EDT [facility] KENDY GLABRATA 0.000 23.000 - 32.138 ppm 11/19/2024 7:04 AM EDT [facility] KENDY GLABRATA Not Detected 23.000 - 32.138 ppm 11/19/2024 7:04 AM EDT [facility] KENDY KRUSEI 0.000 23.000 - 32.271 ppm 11/19/2024 7:04 AM EDT [facility] KENDY KRUSEI Not Detected 23.000 - 32.271 ppm 11/19/2024 7:04 AM EDT [facility] CHLAMYDIA TRACHOMATIS 0.000 23.000 - 31.467 ppm 11/19/2024 7:04 AM EDT [facility] CHLAMYDIA TRACHOMATIS Not Detected 23.000 - 31.467 ppm 11/19/2024 7:04 AM EDT [facility] GARDNERELLA VAGINALIS 0.000 19.961 - 24.689 ppm 11/19/2024 7:04 AM EDT [facility] GARDNERELLA VAGINALIS Not Detected 19.961 - 24.689 ppm 11/19/2024 7:04 AM EDT [facility] MEGASPHAERA (TYPES 1, 2) 0.000 19.961 - 24.689 ppm 11/19/2024 7:04 AM EDT [facility] MEGASPHAERA (TYPES 1, 2) Not Detected 19.961 - 24.689 ppm 11/19/2024 7:04 AM EDT [facility] NEISSERIA GONORRHOEAE 0.000 23.000 - 32.117 ppm 11/19/2024 7:04 AM EDT [facility] NEISSERIA GONORRHOEAE Not Detected 23.000 - 32.117 ppm 11/19/2024 7:04 AM EDT [facility] TRICHOMONAS VAGINALIS 0.000 23.000 - 32.119 ppm 11/19/2024 7:04 AM EDT [facility] TRICHOMONAS VAGINALIS Not Detected 23.000 - 32.119 ppm 11/19/2024 7:04 AM EDT [facility] MYCOPLASMA GENITALIUM 0.000 19.961 - 24.689 ppm 11/19/2024 7:04 AM EDT [facility] MYCOPLASMA GENITALIUM Not Detected 19.961 - 24.689 ppm 11/19/2024 7:04 AM EDT [facility] Tissue 11/18/2024 11:5 1 AM EDT 11/19/2024 2:24 AM EDT us Yaa BABB LAB BLOOD ORDERABLES Final Resul t [facility] [address] [place] [address] * IGP,APTIMA HPV,AGE GDLN (11/18/2024 10:55 AM EDT) AGE GDLN ACOG TESTING Note . [facility] Comment: TESTS RESULT FLAG UNITS REF RANGE LAB Clinician Provided Cytology Information Source.............Vagina No. of containers..01 ThinPrep Vial Age Algo ACOG Emilie... 30-65 01 FLAG LEGEND: L-Low Normal,H-High Normal,LL-Alert Low,HH-Alert High <-Panic Low,>-Panic High,A-Abnormal,AA-Critical Abnormal Performed at: 01 =G [address] [place], [place] [address] Su Mike MD, IGP, APTIMA HPV, RFX 16/18,45 Note . [facility] Comment: TESTS RESULT FLAG UNITS REF RANGE LAB DIAGNOSIS: 02 NEGATIVE FOR INTRAEPITHELIAL LESION OR MALIGNANCY. THIS SPECIMEN WAS RESCREENED PART OF OUR PETROLEUM REFINING FIRER PROGRAM. Specimen adequacy: 02 Satisfactory for evaluation. Performed by: 03 Prasad Duarte, Data Entry Supervisor ([facility]) QC reviewed by: 02 Felicity Amin, Data Entry Supervisor ([facility]) . 02 Note: Note 02 The [...] High,A-Abnormal,AA-Critical Abnormal Performed at: 02 [address] [facility] [place] [address] [facility] [place] [address] Su Mike MD, 03 [facility] [address] [place] [address] Olivier Charlton MD, HPV APTIMA Negative Negative [facility] Comment: This nucleic acid amplification test detects fourteen high- risk HPV types (16,18,31,33,35,39,45,51,52,56,58,59,66,68) without differentiation. Performed at: = - [address] [id number] Web Production Assistant: Su Mike MD, Phone: [phone] Performed at: [address] [id number] Web Production Assistant: Su Mike MD, Phone: [phone] 11/18/2024 10:5 5 AM EDT 11/18/2024 9:36 PM EDT Narrative JOSE - 11/25/2024 3:09 PM EDT SPATULA-ALONE VAGINA us Generic External Data Provider LAB BLOOD ORDERAB LES Final Result Performing Organization Address [facility]/ZIP Co de Phone Number [facility] * Pap Smear (11/18/2024 12:00 AM EDT) Swab Cervical swab / Unknown us Yaa BABB LAB CYTOLOGY ORDERABLES Final Re sult Performing Organization Address [facility]/ZIP Co de Phone Number EXTERNAL LAB * OK ARTHROCENTESIS ASPIR&/INJ MAJOR JT/BURSA W/O US (11/15/2024 1:46 PM EDT) Narrative Lali Burk MA - 11/15/2024 1:46 PM EDT Lali Burk MA 11/18/2024 7:44 AM L Inj/Asp: R knee on 11/15/2024 1:46 PM Indications: pain Details: 22 G needle Medications: 1 mL betamethasone acetate-betamethasone sodium phosphate 6 (3-3) MG/ML us Darcy Keita Pocos DO IN CLINIC/BEDSIDE ORDERABLES Fi nal Result * XR knee 1 or 2 views right (11/15/2024 8:07 AM EDT) Anatomical Region Laterality Modality Lower Extremities, Knee Right Radiogra phic Imaging Narrative 11/18/2024 7:42 AM EDT Imaging Result: Examination of the x-ray AP bilateral weight bearing, bilateral sunrise done here today total of four views coupled with x-rays previously does show some medial squaring of the medial femoral condyle coincident with some medial compartment osteoarthritis. She does have some lateral maltracking of the patellae bilaterally. No evidence of fracture or other osseous abnormality. us Darcy Niteo DO IMG XR PROCEDURES Final Result * Bilateral screening mammogram with tomosynthesis (02/03/2022) Anatomical Region Laterality Modality Breast Bilateral Mammography Impressions 02/03/2022 12:00 AM EDT BIRADS 1: Negative mammogram Board Certified Radiologist. Accredited by the ACR and FDA. MAMMOGRAPHY IS VERY IMPORTANT TO YOUR HEALTH. THE CURRENT EMIRATI COLLEGE OF RADIOLOGY AND NATIONAL COMPREHENSIVE CANCER NETWORK GUIDELINES RECOMMENDS ANNUAL MAMMOGRAPHY BEGINNING AT AGE 40 THIS FACILITY USES A REMINDER SYSTEM TO ENSURE ALL PATIENTS RECEIVE REMINDER NOTIFICATIONS AT THE APPROPRIATE TIME BASED ON THE RECOMMENDATIONS OF THIS EXAM. Report reported and signed by Da Jeff on 02/03/2022 0914 Narrative 02/03/2022 12:00 AM EDT PERFORMED AT [facility] LOCATION:[place] [address] COMPARISON: Baseline examination TECHNIQUE: 2D and 3D Tomosynthesis of the right and left breasts was performed. FINDINGS: Breast composition demonstrates almost entirely fat. No suspicious microcalcifications, asymmetry, architectural distortion, or associated features are present. Procedure Note CONVERSION, GENERIC - 02/17/2023 PERFORMED AT [facility] LOCATION:[place] [address] COMPARISON: Baseline examination TECHNIQUE: 2D and 3D Tomosynthesis of the right and left breasts wasperformed. FINDINGS: Breast composition demonstrates almost entirely fat. No suspiciousmicrocalcifications, asymmetry, architectural distortion, or associated features arepresent. IMPRESSION: BIRADS 1: Negative mammogram Board Certified Radiologist. Accredited by the ACR and FDA. MAMMOGRAPHY IS VERY IMPORTANT TO YOUR HEALTH. THE CURRENT EMIRATI COLLEGEOF RADIOLOGY AND NATIONAL COMPREHENSIVE CANCER NETWORK GUIDELINES RECOMMENDS ANNUALMAMMOGRAPHY BEGINNING AT AGE 40 THIS FACILITY USES A REMINDER SYSTEM TO ENSURE ALL PATIENTS RECEIVEREMINDER NOTIFICATIONS AT THE APPROPRIATE TIME BASED ON THE RECOMMENDATIONS OF THIS EXAM. Report reported and signed by Da Jeff on 02/03/2022 0914 us Gladys Salazar MD IMG BI PROCEDURES Final Resul t * Colonoscopy (03/23/2020 12:00 PM EDT) Anatomical Region Laterality Modality Endoscopy 03/23/2020 12:0 0 PM EDT Narrative 03/23/2020 12:00 PM EDT PERFORMED AT [facility] LOCATION:[id number] Procedure Note CONVERSION, GENERIC - 12/28/2022 PERFORMED AT [facility] LOCATION:[id number] us Gladys Salazar MD ENDOSCOPY PROCEDURE ORDERABLE S Final Result from Last 3 Months or Most Recently Relevant to Health Maintenance Insurance [employer] Care Teams Line Runner Relationship Specialty Start Date End Date Gladys Salazar MD [address] [place] [address] PCP - General Family Medicine 12/20/22
--- OUTSIDE RECORDS SUMMARY | 2025-02-12 13:03 | XMS_ITS | Encounter Summary ---
Author Organization [facility] Address [address] [facility] [place] [address] Care Team Providers Care Site Leader Name Role Phone Gladys Salazar MD Primary Care Provider [phone] Encounter Details Date Type Department Care Team (Late st Contact Info) Description 01/12/2025 Abstract [facility] [address] [place] [address] Yoel Santamaria, DO [address] [place], [place] [address] Social History Tobacco Use Types Packs/Day Years [...] on filedocumented in this encounter Care Teams Site Leader Relationship Specialty Start Date End Date Gladys Salazar MD [address] [place] [address] PCP - General Family Medicine 12/20/22 documented as of this encounter
--- OUTSIDE RECORDS SUMMARY | 2025-02-12 13:03 | XMS_ITS | Encounter Summary ---
Author Organization [facility] Address [address] [facility] [place] [address] Care Team Providers Care Pre Planning Advisor Name Role Phone Gladys Salazar MD Primary Care Provider [phone] Encounter Details Date Type Department Care Team (Late st Contact Info) Description 01/12/2025 Abstract [facility] [address] [place] [address] Yoel Santamaria, DO [address] [place], [place] [id number] Social History Tobacco Use Types Packs/Day Years [...] on filedocumented in this encounter Care Teams Pre Planning Advisor Relationship Specialty Start Date End Date Gladys Salazar MD [address] [place] [address] PCP - General Family Medicine 12/20/22 documented as of this encounter
--- OUTSIDE RECORDS SUMMARY | 2025-02-12 13:03 | XMS_ITS | Encounter Summary ---
Author Organization [facility] Address [address] [place] [address] Care Team Providers Care Magneto Specialist Name Role Phone Jacek Kebede MD Primary Care Provider [phone] Oneida Alfred ENVELOPE MAKER Unavailable [phone] Payton Garibay ENVELOPE MAKER Unavailable [phone] Encounter Details Date Type Department Care Team (Late st Contact Info) Description 03/28/2024 Clinisync Result Encounter [facility] External Department Unsolicited Provider, Generic External Data Social History Tobacco Use Types Packs/Day Years [...] on file documented as of this encounter Procedures Procedure Name Priority Date/Time Associated Diagnosis Comments US PELVIS 03/28/2024 1:57 PM EDT documented in this encounter Results * US PELVIS (03/28/2024 1:57 PM EDT) Anatomical Region Laterality Modality Other 03/28/2024 1:57 PM EDT Narrative 03/28/2024 2:[place] [address] Ultrasound Report Signed Patient: CESAR HARLEY MR#: [id number] : 1980 Acct:[id number] Age/Sex: 43 / F ADM Date: 03/27/24 Loc: [facility] Attending Dr: Yaa Boston Ordering Physician: Yaa Boston Date of Service: 03/27/24 Procedure(s): US pelvis Accession Number(s): [id number] cc: Yaa Boston; JACEK KEBEDE [place] [address] Patient Name: CESAR HARLEY MRN: [id number] date: 1980 Sex: F Assigned Patient Location: [facility] Current Patient Location: Accession/Order Number: [id number] Exam Date: 03/27/2024 08:04 Report Date: 03/28/2024 13:57 At the request of: YAA BOSTON Procedure: US pelvis EXAMINATION: US pelvis HISTORY: RIGHT OVARIAN CYST COMPARISON: CT abdomen pelvis 01/22/2024 TECHNIQUE: Transabdominal and/or transvaginal sonographic examination was performed as indicated by examination type. FINDINGS: UTERUS: Hysterectomy. RIGHT OVARY: Contains a 2.1 cm benign-appearing follicle. Duplex Doppler demonstrates normal waveform and flow; resistive index 0.5. Ovary size: 3.3 x 2.0 x 2.8 cm LEFT OVARY: Oophorectomy CUL-DE-SAC: Unremarkable. No significant free fluid. BLADDER: Unremarkable. OTHER: None. US/US pelvis IMPRESSION: 1. Incidental right ovarian follicle /cyst. No suspicious findings.. Electronically authenticated by: GORDO PARTIDA Date: 03/28/2024 13:57 Dictated By: Gordo Partida M.D. Signed By: 03/28/24 1400 DD/ 1350 TD/TT: Marketing Professional: Procedure Note Radiology, Radiologist, - 03/28/[address] [address] Ultrasound Report Signed Patient: CESAR HARLEY RMR#: [id number] : 1980Acct:[id number] Age/Sex: 43 / FADM Date: 03/27/24 Loc: [facility] Attending Dr: Yaa Boston Ordering Physician: Yaa Boston Date of Service: 03/27/24 Procedure(s): US pelvis Accession Number(s): [id number] cc: Yaa Boston; JACEK KEBEDE [place] [address] Patient Name: CESAR HARLEY MRN: [id number] date: 1980 Sex: F Assigned Patient Location: [facility] Current Patient Location: Accession/Order Number: [id number] Exam Date: 03/27/2024 08:04 Report Date: 03/28/2024 13:57 At the request of: YAA BOSTON Procedure: US pelvis EXAMINATION: US pelvis HISTORY: RIGHT OVARIAN CYST COMPARISON: CT abdomen pelvis 01/22/2024 TECHNIQUE: Transabdominal and/or transvaginal sonographic examination was performed as indicated by examination type. FINDINGS: UTERUS: Hysterectomy. RIGHT OVARY: Contains a 2.1 cm benign-appearing follicle. Duplex Doppler demonstrates normal waveform and flow; resistive index 0.5. Ovary size:3.3 x 2.0 x 2.8 cm LEFT OVARY: Oophorectomy CUL-DE-SAC: Unremarkable. No significant free fluid. BLADDER: Unremarkable. OTHER: None. US/US pelvis IMPRESSION: 1. Incidental right ovarian follicle /cyst. No suspicious findings.. Electronically authenticated by: GORDO PARTIDA Date: 03/28/2024 13:57 Dictated By: Gordo Partida M.D. Signed By:03/28/24 1400 DD/ 1353 TD/TT: Marketing Professional: us Generic External Data Provider [facility] Final Result documented in this encounter Visit Diagnoses Not on filedocumented in this encounter Care Teams Magneto Specialist Relationship Specialty Start Date End Date Jacek Kebede MD [address] [place], [place] [address] PCP - General Family Medicine 12/20/22 Oneida Alfred NP [address] [place] [address] PCP - [place] [employer] 11/13/23 Payton Garibay NP [address] [place], [place] [address] PCP - [place] [employer] 04/14/24 5 documented as of this encounter
--- OUTSIDE RECORDS SUMMARY | 2025-02-12 13:03 | XMS_ITS | Clinical Summary ---
Author Organization [facility] Address [address] [facility] [place] [address] Phone Care Team Providers Care Traffic Observer Name Role Phone Gladys Salazar MD Primary Care Provider [phone] Social History Tobacco Use Types Packs/Day Years Used Date Smoking Tobacco: Never Assessed Comments Unknown Sex and Gender Information Value Date Recorded Sex Assigned at Not on file Legal Sex Female 9:09 AM EST Gender Identity Not on file Sexual Orientation Not on file Plan of Treatment Not on file Care Teams Traffic Observer Relationship Specialty Start Date End Date Gladys Salazar MD [address] [place] [address] PCP - General 08/16/16
--- OUTSIDE RECORDS SUMMARY | 2025-02-12 13:03 | XMS_ITS | Encounter Summary ---
Author Organization [facility] Address [address] [facility] [place] [address] Care Team Providers Care Risk Control Analyst Name Role Phone Gladys Salazar MD Primary Care Provider [phone] Encounter Details Date Type Department Care Team (Late st Contact Info) Description 11/28/2024 Orders Only [facility] [address] [address] Radha Crenshaw LPN [address] [place] [address] Social History Tobacco Use Types Packs/Day [...] Procedure Name Priority Date/Time Associated Diagnosis Comments PAP SMEAR Routine 11/18/2024 12:00 AM EDT documented in this encounter Results * Pap Smear (11/18/2024 12:00 AM EDT) Swab Cervical swab / Unknown [facility] CYTOLOGY ORDERABLES Final Re sult EXTERNAL LAB documented in this encounter Visit Diagnoses Not on filedocumented in this encounter Care Teams Risk Control Analyst Relationship Specialty Start Date End Date Galdys Salazar MD [address] [place] [address] PCP - General Family Medicine 12/20/22 documented as of this encounter
--- NOTE | 2025-02-12 19:48 | NUTR.NU ---
Pt referred for diet education r/t diverticulitis, HLD, pre-DM, weight control. Obtained health history, 24-hour recall, and food items known to cause GI distress. Pt's goals are to avoid further episodes of diverticulitis, control blood glucose levels, and lose 50#. Encouraged Ailyn to make small, sustainable dietary modifications and aim for 2#/week weight loss. Answered questions and provided handouts: Planning Healthy Meals, Fats - the Good/Bad/Ugly, Low-fiber guidelines for use w/GI distress, Mediterranean diet guidelines, and [id number] kcal meal plan. Also provided Dietitian contact information for follow up questions or concerns.
== END 2025-02-12 13:02 | disposition home or self-care (01) ==
LOC: MN 13:01
PROVIDERS: PCP Family Medicine
DX: E78.2 Mixed hyperlipidemia (principal); Z68.41 Body mass index [BMI] 40.0-44.9, adult; E66.01 Morbid (severe) obesity due to excess calories; R73.03 Prediabetes
CPT/HCPCS: 97802

== ENCOUNTER 2025-04-07 15:01 | Emergency (ER) | payer BC, SELFPAY ==
[2025-04-07 15:17] VITALS: BP 168/110; PULSE 80; O2SAT 98; BMI 39.9
--- NOTE | 2025-04-07 15:48 | US_ITS ---
The [address] [address] Patient Name: CESAR LOPEZ MRN: [id number] date: 1980 Sex: F Assigned Patient Location: ER Current Patient Location: ER Accession/Order Number: [id number] Exam Date: 04/07/2025 17:30 Report Date: 04/07/2025 18:24 At the request of: DENG BABB Procedure: US right upper quadrant EXAMINATION TYPE: US right upper quadrant DATE OF EXAM ORDERED: 04/07/2025 6:15 PM HISTORY: ruq pain with hx gb stones, nausea COMPARISON: NONE TECHNIQUE: Realtime imaging limited to the right upper quadrant was performed. FINDINGS: Layering echogenic stones are present in the gallbladder lumen. The gallbladder wall measures 2 mm in thickness. Common bile but measures 6 mm in diameter. No intrahepatic or extrahepatic biliary dilatation is seen. The liver is echogenic in respect to the right renal cortex suggesting hepatic steatosis. There is hepatopedal flow in the main portal vein. Partial visualization of the right kidney reveals no gross hydronephrosis. Partial visualization of the pancreas reveals no abnormality. US/US right upper quadrant IMPRESSION: No sonographic evidence of acute cholecystitis. Gallstones are present within the gallbladder lumen. Hepatic steatosis is noted. Impression dictated by: David Jason M.D. 04/07/2025 6:24 PM Dictation Location: [place] [address] Electronically authenticated by: [id number] Y Date: 04/07/2025 18:24
--- NOTE | 2025-04-07 15:51 | ED.GENADUL1 ---
HPI HPI - General Adult General Chief complaint: Abdominal Pain Stated complaint: STOMACH PAIN Time Seen by Provider: 04/07/25 15:12 Source: patient and family Mode of arrival: walk-in Limitations: no limitations History of Present Illness HPI narrative: Patient has 5-day history of worsening abdominal pain and some back pain she has a history of diverticulitis as well as fatty liver and sludge in gallbladder. Patient has decreased appetite decreased food and fluid intake. Denies nausea, vomiting, diarrhea, rectal bleeding, urinary bleeding, frequent urination. Symptoms worsen in the past 24 hours. Onset (ago): day(s) (5) Location: Reports abdomen Severity: moderate Relieving factors: Reports none Exacerbating factors: Reports movement Treatments prior to arrival: Reports other (tylenol) Related Data Home Medications ?Medication ?Instructions ?Recorded ?Confirmed cyanocobalamin (vitamin B-12) 500 500 mcg PO DAILY 01/12/25 04/07/25 mcg tablet (B-12 DOTS) magnesium 200 mg tablet 200 mg PO DAILY 01/12/25 04/07/25 Previous Rx's ?Medication ?Instructions ?Recorded dicyclomine 20 mg tablet 20 mg PO TID #10 tabs 04/07/25 hydrocodone 5 mg-acetaminophen 325 1 tab PO Q6H PRN pain #12 tabs 04/07/25 mg tablet Allergies Allergy/AdvReac Type Severity Reaction Status Date / Time cefazolin (From [facility]) Allergy Intermediate Hives Verified 04/07/25 15:17 prednisone Allergy Intermediate Unknown Verified 04/07/25 15:17 Opioid HPI Opioid Management Most Recent Opioid Data: Last Pain Scale 2 01/23/24, 16:00 Last ORT Total Score 0 01/22/24, 21:09 Last ORT Risk Category Low Risk 01/22/24, 21:09 Review of Systems ROS Status of ROS 10 or more systems reviewed and unremarkable except as noted in history and below Constitutional Denies: fever or chills Ears, nose, mouth, and throat Denies: throat pain or ear pain Cardiovascular Denies: chest pain Respiratory Denies: shortness of breath or cough Gastrointestinal Reports: abdominal pain; Denies: coffee grounds in vomit, constipation or blood in stool Genitourinary Denies: painful urination or blood in urine Musculoskeletal Denies: neck pain Integumentary/Breast Denies: rash Neurological Reports: headache Endocrine Denies: excessive urination or excessive thirst Allergic/Immunologic Denies: hives [facility] Medical History (Updated 04/07/25 @ 18:49 by HOLLEY BERGER II) Diverticulosis ?K57.90 - Diverticulosis of intestine, part unspecified, without perforation or abscess without bleeding (ICD-10) Obesity (BMI 30-39.9) ?E66.9 - Obesity, unspecified (ICD-10) Surgical History (Updated 01/23/24 @ 00:23 by Radha Michel) History of ankle surgery ?Z98.890 - Other specified postprocedural states (ICD-10) H/O: hysterectomy ?Z90.710 - Acquired absence of both cervix and uterus (ICD-10) Family History (Updated 01/22/24 @ 21:31 by Radha Michel) Father Family history of CHF (congestive heart failure) Family history of COPD (chronic obstructive pulmonary disease) Family history of cancer Family history of hypertension Family history of myocardial infarction Family history of stroke Grandfather Family history of diabetes mellitus Grandmother Family history of diabetes mellitus Social History (Updated 01/22/24 @ 21:32 by Radha Michel) Within the past year, how often did you have a drink containing alcohol: never Score interpretation: A score less than 3 is consistent with normal alcohol consumption. Smoking status: Former smoker Non-prescribed substance use: denies use Previous occupational history: owns own business Highest level of school completed/degree received: Bachelor's degree Are you now , , , , never or living with a partner: In a typical week, how many times do you talk on the telephone with family, friends, or neighbors: 3 or more times per week How often do you get together with friends or relatives: 3 or more times per week How often do you attend anglican or jainism services: 4 or more times per year Do you belong to any clubs or organizations such as anglican groups unions, fraternal or athletic groups, or school groups: yes Total score: 4 Score interpretation: A score of greater than or equal to 2 indicates the lowest level of social isolation. Little interest or pleasure in doing things: not at all Feeling down, depressed, or hopeless: not at all Feel stressed/tense/nervous/anxious/difficulty sleeping: not at all Do you think of yourself as: straight/heterosexual Gender Identity: female Exam Constitutional Vital Signs, click to edit/add: Last Vital Signs Pulse 69 04/07/25 18:29 Resp 15 04/07/25 18:29 BP 168/110 H 04/07/25 15:17 Pulse Ox 96 04/07/25 18:29 O2 Del Method Room Air 04/07/25 15:17 Documenting provider has reviewed patient's vital signs: yes Common normals: no apparent distress and oriented x3 HENMT Common normals: normocephalic Face and sinus: normal facial exam Nose: external nose normal General ear: hearing not grossly impaired External ear: external ears normal Eye Common normals: PERRL and EOMs intact bilaterally Neck & C-Spine Common normals: full ROM and supple Chest Common normals: inspection of chest normal Respiratory Common normals: normal respiratory effort and clear to auscultation bilaterally Effort & inspection: able to speak in complete sentences Cardio Common normals: regular rate, regular rhythm, S1 normal heart sound and S2 normal heart sound GI Common normals: soft to palpation; tender Auscultation: normoactive bowel sounds Palpation: soft and tender Details: RUQ and Sawant's sign Extremity Common normals: full ROM Neuro Common normals: oriented x3 and moves all extremities Course Vital Signs Vital signs: Vital Signs Pulse Rate 80 04/07/25 15:17 Respiratory Rate 18 04/07/25 15:17 Blood Pressure 168/110 H 04/07/25 15:17 Pulse Oximetry 98 04/07/25 15:17 Oxygen Delivery Method Room Air 04/07/25 15:17 Pulse Rate 69 04/07/25 18:29 Respiratory Rate 15 04/07/25 18:29 Blood Pressure 168/110 H 04/07/25 15:17 Pulse Oximetry 96 04/07/25 18:29 Oxygen Delivery Method Room Air 04/07/25 15:17 Medical Decision Making [facility] Narrative Medical decision making narrative: Patient presents with 5-day history of worsening right upper quadrant pain with known history of gallbladder sludge. Patient directed here by GI. She has right upper quadrant tenderness positive Sawant sign. Denies any urinary bleeding rectal bleeding dysuria. Has loss of appetite not eating and drinking dry oral mucosa. Discussed with Dr. santoro, will add ultrasound right upper quadrant CBC CMP lipase 0.9% saline 1 L Toradol 30 mg IV. Discussed plan of care with patient agreeable with plan of care. Additional pain medication including Dilaudid 0.5 mg and Zofran 4 mg Discussed plan of care with patient medication help will disposition home. No surgeries for possible cholecystectomy Bentyl 20 mg every 8 hours and [place] 5 mg every 6 hours #12 local pharmacy. 4 mg 1 every 8 hours. Differential Diagnosis Differential Diagnosis: No pain, gallbladder disease, pancreatitis Lab Data Lab results reviewed: Yes I reviewed the patient's lab results Labs: Lab Results 04/07/25 04/07/25 Range/Units 15:55 16:00 WBC 9.3 (4.0-11.0) 10^3/uL RBC 4.57 (4.20-5.40) 10^6/uL Hgb 14.2 (12.0-16.0) g/dL Hct 40.9 (36.0-48.0) % MCV 89.5 (81.0-99.0) fL MCH 31.1 (26.7-34.0) pg MCHC 34.7 (29.9-35.2) g/dL RDW 11.8 (11.0-15.0) % Plt Count 250 (150-450) 10^3/uL MPV 9.9 (9.5-13.5) fL Neut % (Auto) 75.6 H (43.0-75.0) % Lymph % (Auto) 16.1 L (20.5-60.0) % [place] % (Auto) 6.9 (1.7-12.0) % Eos % (Auto) 0.9 (0.9-7.0) % Baso % (Auto) 0.3 (0.2-2.0) % Neut # (Auto) 7.0 H (1.4-6.5) 10^3/uL Lymph # (Auto) 1.5 (1.2-3.8) 10^3/uL [place] # (Auto) 0.6 (0.3-0.8) 10^3/uL Eos # (Auto) 0.1 (0.0-0.7) 10^3/uL Baso # (Auto) 0.0 (0.0-0.1) 10^3/uL Abs Immat Gran (auto) 0.02 (0.00-0.03) 10^3/uL Imm/Tot Granulo (auto) 0.2 (0.0-0.5) % Sodium 140 (136-145) mmol/L Potassium 4.0 (3.5-5.1) mmol/L Chloride 103 (98-107) mmol/L Carbon Dioxide 27.4 (21.0-32.0) mmol/L Anion Gap 13.6 BUN 12.0 (7.0-18.0) mg/dL Creatinine 0.71 (0.55-1.02) mg/dL Est GFR ( Amer) >60 (>=60 mL/min/1.73m^2) Est GFR (Non-Af Amer) >60 (>=60 mL/min/1.73m^2) BUN/Creatinine Ratio 16.9 Glucose 91 (74-106) mg/dL Calcium 8.9 (8.5-10.1) mg/dL Total Bilirubin 0.7 (0.2-1.0) mg/dL AST 23 (15-37) U/L ALT 56 (14-59) U/L Alkaline Phosphatase 64 (46-116) U/L Total Protein 7.7 (6.4-8.2) g/dL Albumin 3.9 (3.4-5.0) g/dL Globulin 3.8 g/dL Albumin/Globulin Ratio 1.0 Lipase 27.0 (16.0-77.0) U/L Urine Color Yellow (YELLOW) Urine Clarity Sl cloudy (CLEAR) Urine pH 5.5 (5.0-9.0) Ur Specific Fowler >=1.030 A (1.005-1.025) Urine Protein Negative (NEG/TRACE) mg/dL Urine Glucose (UA) Negative (NEGATIVE) mg/dL Urine Ketones 40 A (NEGATIVE) mg/dL Urine Occult Blood Trace-i (NEGATIVE) Urine Nitrite Negative (NEGATIVE) Urine Bilirubin Negative (NEGATIVE) Urine Urobilinogen 0.2 (0.2-1.0) EU/dL Ur Leukocyte Esterase Negative (NEGATIVE) Urine RBC 2-5 A (0-2) #/HPF Urine WBC 0-2 A (NONE SEEN) #/HPF Ur Squamous Epith Cells Moderate A (NONE/RARE) #/LPF Urine Crystals Seen A (None Seen) #/HPF Amorphous Sediment Moderate Urine Bacteria Trace A (NONE SEEN) #/HPF Urine Casts None seen (NONE SEEN) #/LPF Urine Mucus None seen (NONE SEEN) Ur Culture Indicated? No Imaging Data US - abdomen: Radiologist's impression: ITS Impressions Upper Quadrant Ultrasound 04/07/25 15:48 IMPRESSION: No sonographic evidence of acute cholecystitis. Gallstones are present within the gallbladder lumen. Hepatic steatosis is noted. Impression dictated by: David Jason M.D. 04/07/2025 6:24 PM Dictation Location: [place] [address] Electronically authenticated by: [id number] Y Date: 04/07/2025 18:24 Discharge Plan Discharge Chief Complaint: Abdominal Pain Clinical Impression: Cholelithiasis Qualifiers: Cholelithiasis location: gallbladder Cholecystitis presence: without cholecystitis Biliary obstruction: without biliary obstruction Qualified Code(s): K80.20 - Calculus of gallbladder without cholecystitis without obstruction Abdominal pain Qualifiers: Abdominal location: right upper quadrant Qualified Code(s): R10.11 - Right upper quadrant pain Patient Disposition: Home, Self-Care Time of Disposition Decision: 18:48 Condition: Good Prescriptions / Home Meds: New dicyclomine 20 mg tablet 20 mg PO TID Qty: 10 0RF hydrocodone-acetaminophen 5-325 mg tablet 1 tab PO Q6H PRN (Reason: pain) Qty: 12 0RF No Action cyanocobalamin (vitamin B-12) [B-12 DOTS] 500 mcg tablet 500 mcg PO DAILY magnesium 200 mg tablet 200 mg PO DAILY Print Language: Venezuelan Instructions: Gallstones (ED), Abdominal Pain (ED) Additional Instructions: Avoid all fat, lipid containing foods, buttered foods, fried foods. Clear liquid diet for 24 hours including water, Jell-O, popsicles, clear broth, Gatorade. Follow-up with general surgeon and primary care. Follow-up with your gang sawyer. Do not drive or operate equipment taking pain medication including [place] as it may cause drowsiness. Return to if any symptoms worsen or new symptom develop. Referrals: JACEK KEBEDE [Primary Care Provider, Family Practice] - 1 week MEGHAN WATTERS [Physician] - As soon as possible
[2025-04-07] MEDS: KETOROLAC TROMETHAMINE 30 MG/ML VIAL IVP (16:10)
[2025-04-07] MEDS: 0.9 % SODIUM CHLORIDE 1,000 ML 1000 ML IV (16:10)
[2025-04-07 16:16] LABS: Hematocrit 40.9 % (36.0-48.0); Hemoglobin 14.2 g/dL (12.0-16.0); Immature Granulocytes Abs Auto 0.02 10^3/uL (0.00-0.03); Immature Granulocytes Pct Auto 0.2 % (0.0-0.5); Lymphocytes Absolute Auto 1.5 10^3/uL (1.2-3.8); Mean Corpuscular HGB Conc 34.7 g/dL (29.9-35.2); Mean Corpuscular Hemoglobin 31.1 pg (26.7-34.0); Mean Corpuscular Volume 89.5 fL (81.0-99.0); Platelet Count 250 10^3/uL (150-450); Red Blood Count 4.57 10^6/uL (4.20-5.40); White Blood Count 9.3 10^3/uL (4.0-11.0)
[2025-04-07 16:17] LABS: Glucose Urine UA NEGATIVE (NEGATIVE)
[2025-04-07 16:24] LABS: Alanine Aminotransferase 56 U/L (14-59); Albumin Globulin Ratio 1.0; Albumin Level 3.9 g/dL (3.4-5.0); Alkaline Phosphatase 64 U/L (46-116); Anion Gap 13.6; Aspartate Amino Transferase 23 U/L (15-37); Blood Urea Nitrogen 12.0 mg/dL (7.0-18.0); Calcium 8.9 mg/dL (8.5-10.1); Carbon Dioxide 27.4 mmol/L (21.0-32.0); Chloride 103 mmol/L (98-107); Estimated GFR (African America >60 (>=60 mL/min/1.73m^2); Estimated GFR (Non-African Ame >60 (>=60 mL/min/1.73m^2); Globulin 3.8 g/dL; Glucose 91 mg/dL (74-106); Lipase 27.0 U/L (16.0-77.0); Potassium 4.0 mmol/L (3.5-5.1); Sodium 140 mmol/L (136-145); Total Protein 7.7 g/dL (6.4-8.2)
[2025-04-07 16:32] LABS: Cast Seen? NONE SEEN #/LPF (NONE SEEN); Crystals Seen? Seen #/HPF (None Seen); Urine Culture Indicated NO
[2025-04-07] MEDS: HYDROMORPHONE HCL 0.5 MG/0.5 ML SYRINGE IV (18:14)
[2025-04-07 18:29] VITALS: PULSE 69; O2SAT 96
[2025-04-07] MEDS: DICYCLOMINE HCL 10 MG CAPSULE 20 MG PO (19:03)
== END 2025-04-07 19:07 | disposition home or self-care (01) ==
PROVIDERS: Physician Assistant; Emergency Provider Student in an Organized Health Care Education/Training Program; PCP Family Medicine
DX: K80.20 Calculus of gallbladder without cholecystitis without obstruction (principal); R10.11 Right upper quadrant pain; Z90.710 Acquired absence of both cervix and uterus; Z87.891 Personal history of nicotine dependence; K76.0 Fatty (change of) liver, not elsewhere classified
CPT/HCPCS: 36415; 76705; 80053; 81001; 83690; 85025; 96374; 96375; 99285; J1171; J1885; J2405